=== PATIENT | male | born 1970 | race African-American/Black ===

== ENCOUNTER 2016-10-13 23:25 | Inpatient (IN) | payer MEDICARE, MEDICAID ==
[~2016-10-13] VITALS: Ht 177.8 cm; Wt 75.7 kg
[~2016-10-13 23:25] MED LIST: AMLO1CAP PO; CARV25TA PO; CLON0.2T PO; DIPH25ST4 PO; FOLI1TAB16 PO; MORP30TA PO
--- NOTE | 2016-10-13 23:35 | NUR ---
To bed 4 a 46 yo male bibra with c/o of generalized body pain at 05/07. Patient reported that he was discharged from [facility] for pneumonia. Patient is alert oriented x4. Breathing even and unlabored. Gowned patient. Placed on cardiac monitor technician. Pending ER md luna.
[2016-10-13] MEDS ORDERED: IV NS 0.9% 500 ML IV ONE (23:45)
[2016-10-13] MEDS ORDERED: IV SET PRIMARY 1 EA INFUS.SET MC ONE (23:45)
--- NOTE | 2016-10-13 23:51 | NUR ---
ekg taken by MAR Núñez.
--- NOTE | 2016-10-13 23:55 | NUR ---
Inserted a 20g estrada needle to portacath access on the right upper chest, blood return noted, flushed with ease.
[2016-10-14] VITALS (50 sets, daily range): BP systolic 84–160; BP diastolic 52–139
[2016-10-14] MEDS ORDERED: IV NS 0.9% 1,000 ML BAG IV ONE
--- NOTE | 2016-10-14 00:03 | NUR ---
lab at bedside to draw blood.
--- NOTE | 2016-10-14 00:05 | NUR ---
xr tech at bedside.
[2016-10-14 00:38] LABS: ALBUMIN 1.8 g/dL (3.4-5.0); BILIRUBIN,DIRECT 4.2 mg/dL (0.0-0.2); BILIRUBIN,TOTAL 5.4 mg/dL (0.2-1.0); CALCIUM, SERUM 8.7 mg/dL (8.5-10.1); CREATININE 6.8 mg/dL (0.6-1.3); POTASSIUM 5.2 mmol/L (3.5-5.1); TOTAL PROTEIN, SERUM 5.5 g/dL (6.4-8.2)
[2016-10-14 00:40] LABS: LACTIC ACID 1.4 mmol/L (0.4-2.0); TROPONIN I 0.086 ng/mL (0.00-0.056)
[2016-10-14 00:45] LABS: INR 1.24 (0.87-1.13); PROTHROMBIN TIME 13.4 SECS (9.5-12.7)
--- NOTE | 2016-10-14 00:49 | NUR ---
CALLED NURSING SUP. FOR TELE BED, INFORMED HER PT IS A DIALYSIS PT
[2016-10-14 00:52] LABS: MEAN CORPUSCULAR HEMOGLOBIN 29 PG (26.0-33.0); MEAN CORPUSCULAR HGB CONC 34 g/dl (31.0-36.0); MEAN CORPUSCULAR VOLUME 85 fL (80-96); PLATELET COUNT (AUTO) 107 /CMM (150-450); RDW COEFFICIENT OF VARIATION 16.3 (11.5-15.0); RED BLOOD CELL COUNT(AUTO) 2.38 MIL/uL (4.5-6.0)
[2016-10-14] MEDS ORDERED: VALS320T2 PO (00:55)
[2016-10-14] MEDS ORDERED: SEVE800T8 PO (00:55)
[2016-10-14] MEDS ORDERED: SUCR1TAB PO (00:55)
[2016-10-14] MEDS ORDERED: MINO2.5T PO (00:55)
[2016-10-14] MEDS ORDERED: OMEP20CA10 PO (00:55)
[2016-10-14] MEDS ORDERED: IV NS 0.9% 500 ML IV ONE (00:59)
[2016-10-14] MEDS ORDERED: VANCOMYCIN 1 GM VIAL ONE (00:59)
[2016-10-14] MEDS ORDERED: IV D5W 250 ML IV ONE (00:59)
[2016-10-14] MEDS ORDERED: PIPERACILLIN /TAZOBACTAM 3.375 G VIAL IV ONE (00:59)
[2016-10-14] MEDS ORDERED: IV D5W 50 ML IV ONE (00:59)
[2016-10-14] MEDS ORDERED: ASPIRIN 325 MG TABLET ONE (00:59)
[2016-10-14] MEDS ORDERED: IV SET PRIMARY PUMP SET 1 EA INFUS.SET MC ONE ×2 (01:00→09:41)
[2016-10-14] MEDS ORDERED: IV NS 0.9% 500 ML BAG IV ONE ×2 (01:00)
[2016-10-14] MEDS ORDERED: PIPERACILLIN /TAZOBACTAM 3.375 G in IV D5W 50 ML IV ONE (01:00)
[2016-10-14] MEDS ORDERED: VANCOMYCIN 1 GM in IV D5W 250 ML IV ONE (01:00)
[2016-10-14] MEDS ORDERED: ASPIRIN 325 MG TABLET PO ONE (01:00)
[2016-10-14 01:04] LABS: WHITE BLOOD COUNT (AUTO) 30.9 K/uL (4.3-11.0)
[2016-10-14 01:05] LABS: HEMATOCRIT 20 % (39-51)
--- NOTE | 2016-10-14 01:23 | NUR ---
Per Dr Tolliver, floor to call for admission orders.
--- NOTE | 2016-10-14 01:40 | NUR ---
Patient is asking for pain medicaiton, spoke with Dr Mcduffie, per Dr Mcduffie, no pain medication needed at this time.
--- NOTE | 2016-10-14 01:48 | NUR ---
Report given to Godfrey CRENSHAW in ICU for RM 260 for tuyet.
[2016-10-14 02:04] LABS: BAND % (MANUAL) 1 % (0.0-5.0); LYMPHOCYTES % (MANUAL) 3 % (16-48); MONOCYTES % (MANUAL) 3 % (0-11.0); NEUTROPHILS % (MANUAL) 92 (42-76)
[2016-10-14 02:05] LABS: EOSINOPHILS % (MANUAL) 1 % (0-4); PLATELET ESTIMATE DECREASED
--- NOTE | 2016-10-14 02:09 | NUR ---
transported to ICU rm 260 via als protocol, no incident noted. Ed RN at bedside took over care.
[2016-10-14] MEDS ORDERED: HYDROMORPHONE 1 MG/1 ML DISP.SYRIN ONE (03:29)
[2016-10-14] MEDS ORDERED: diphenhydrAMINE HCL ELIX 25 MG/10 ML UDC PO PRN (03:30)
[2016-10-14] MEDS ORDERED: ONDANSETRON HCL/PF 4 MG/2 ML VIAL IV PRN (03:30)
[2016-10-14] MEDS: HYDROMORPHONE 1 MG/1 ML DISP.SYRIN IV PRN ×3 (03:33→20:08)
[2016-10-14 04:38] LABS: MEAN CORPUSCULAR HEMOGLOBIN 29 PG (26.0-33.0); MEAN CORPUSCULAR HGB CONC 34 g/dl (31.0-36.0); MEAN CORPUSCULAR VOLUME 86 fL (80-96); PLATELET COUNT (AUTO) 88 /CMM (150-450); RDW COEFFICIENT OF VARIATION 16.5 (11.5-15.0); RED BLOOD CELL COUNT(AUTO) 2.23 MIL/uL (4.5-6.0); WHITE BLOOD COUNT (AUTO) 29.7 K/uL (4.3-11.0)
--- NOTE | 2016-10-14 04:41 | NUR ---
CUFF RUNNER PT WAS ADMITTED FROM ER WITH DIAGNOSIS PNA, EMPYEMA, SEPSIS. PT HAS HISTORY OF SICKLE CELL DISEASE, ESRD, HD, HEPATITIS C, LIVER CIRRHOSIS, ASCITIS. PT IS AWAKE, ALERT, ORIENTED X 4. MOVES ALL EXTREMITIES, LEGS ARE WEAK. BILATERAL LOW LEG EDEMA. LUNG SOUNDS DIMINISHED, SCATTERED RHONCHI. O2 2L VIA N/C. SCOPE-SR. AFEBRILE. PT IS ANURIC. RIGHT UPPER ARM AV SHUNT. LAST HD DONE 10.12.17 - 2500 ML FLUID REMOVED.PT HAS RIGHT UPPER ARM BLANCA-CATH. H.L. MEDICATED WITH DILAUDID 1 MG IVP. PT WAS GIVEN 1000 ML NS BOLUS IN ER. STARTED VANCO & ZOSYN IVPB'S.
[2016-10-14 04:54] LABS: HEMATOCRIT 19 % (39-51); HEMOGLOBIN 6.5 g/dL (13.5-17.5)
[2016-10-14 04:56] LABS: CALCIUM, SERUM 8.3 mg/dL (8.5-10.1); CREATININE 6.9 mg/dL (0.6-1.3); PHOSPHORUS 7.9 mg/dL (2.5-4.9); POTASSIUM 5.3 mmol/L (3.5-5.1)
[2016-10-14 06:14] LABS: BAND % (MANUAL) 2 % (0.0-5.0); LYMPHOCYTES % (MANUAL) 6 % (16-48); MONOCYTES % (MANUAL) 1 % (0-11.0); NEUTROPHILS % (MANUAL) 91 (42-76); PLATELET ESTIMATE DECREASED
--- NOTE | 2016-10-14 06:48 | NUR ---
PROFESSOR OF EXERCISE SCIENCE H/H DROPPED FROM 02/14 TO 6.5. Maryse FOSTER WAS CALLED 3 TIMES TO NOTIFY CRITICAL LAB RESULTS. NO CALL BACK. DIMPLING MACHINE OPERATOR ALLEN PRUITT WILL TRY TO REACH MD. NO S/S OF ANY BLEEDING. PT HAS SICKLE CELL DISEASE, WHICH SOURCE OF CHRONIC ANEMIA.
--- NOTE | 2016-10-14 07:35 | NUR ---
COAL SHOOTER: pt.is sleepy now, labored, O2sat 91-93% on r/a, arouses by name well, A/Ox3, put on 4L O2 n/c, no any c/o, no SOB, SBP over 100, SR, H/H 6.5, was paged over night
--- NOTE | 2016-10-14 07:45 | NUR ---
AND DRYING SUPERVISOR COOKING CASING: is in room, updated with pt.current status, VS, labs, H/H, said: T/S and hold one unit PRBC
--- NOTE | 2016-10-14 07:50 | NUR ---
HOUSE MOVER: charge nurse spoke with , no new orders/ABG for now, hold one PRBC unit
--- NOTE | 2016-10-14 07:51 | NUR ---
SCHOOL CHILDCARE ATTENDANT: : ok for ABG
--- NOTE | 2016-10-14 08:12 | NUR ---
SAP HANA DEVELOPER: ABG pH7.38 pCO2 39, pO2 112, bicarb 23
[2016-10-14] MEDS ORDERED: SEVELAMER CARBONATE 800 MG TABLET PO SCH (09:00)
[2016-10-14] MEDS: SUCRALFATE 1 G TABLET PO SCH ×3 (09:00→17:27)
[2016-10-14] MEDS ORDERED: VANCOMYCIN 500 MG in IV D5W 100 ML IV PRN (09:00)
[2016-10-14] MEDS: FOLIC ACID 1 MG TABLET PO SCH (09:00)
[2016-10-14] MEDS ORDERED: PIPERACILLIN /TAZOBACTAM 2.25 G in IV D5W 50 ML IV SCH (09:00)
--- NOTE | 2016-10-14 09:00 | NUR ---
METALS SALES REPRESENTATIVE: is in room, updated with pt.current condition, VS, c/o and pain level, ABG, meds, labs, pt.confirmed: he gave home meds information in ER, reevaluated meds/see new orders, HD for today, start renal diet after HD, Levaquin for IV, blood transfusion per , aware and confirmed: pt.is with multiple pain/itching occas. long time, ok with respiratory status, spoke with charge nurse, pharmacy was notified re new orders and HD
[2016-10-14] MEDS ORDERED: IV NS 0.9% 250 ML BAG IV ONE (09:30)
[2016-10-14] MEDS ORDERED: IPRATROPIUM NEB FS 0.5 MG/2.5 ML AMPUL.NEB NEB PRN (09:30)
[2016-10-14] MEDS ORDERED: ACETAMINOPHEN 650 MG/20.3 ML UDC PO PRN (09:30)
--- NOTE | 2016-10-14 09:30 | NUR ---
SOLAR ELECTRIC INSTALLER: pt.c/o multiple body pain, alisha.low back, legs, 8-04/07, A/Ox3, VSS now, O2 sat. over 94%, said:ok with respiratory status with pain meds long use history. is in room, notified re pt.condition, history, VS, O2sat., ABG, labs, meds, see new orders
[2016-10-14] MEDS ORDERED: BLOOD IV SET 1 EA INFUS.SET MC ONE (09:41)
[2016-10-14] MEDS ORDERED: SECONDARY IV SET 1 EA INFUS.SET MC ONE ×2 (09:41→15:25)
[2016-10-14] MEDS: CINACALCET HCL 30 MG TABLET PO SCH (10:05)
[2016-10-14] MEDS: SEVELAMER CARBONATE 800 MG TABLET PO SCH ×3 (10:05→17:27)
[2016-10-14] MEDS: HYDROXYUREA 500 MG CAPSULE PO SCH (10:06)
[2016-10-14] MEDS: CARVEDILOL 12.5 MG TABLET PO SCH ×2 (10:24→21:09)
[2016-10-14] MEDS ORDERED: CLONIDINE HCL 0.1 MG TABLET PO PRN (10:30)
[2016-10-14] MEDS ORDERED: LEVOFLOXACIN 500 MG /D5W 100ML 500 MG in PREMIX 1 EA IV ONE (11:00)
--- NOTE | 2016-10-14 11:30 | NUR ---
RPG DEVELOPER: BT orders verification: charge nurse spoke with : confirmed last order: transfuse one PRBC unit with HD today. Pt.got explanation for R.thoracentesis per orders, signed consent
[2016-10-14] MEDS ORDERED: ALBUTEROL FS 2.5 MG/3 ML VIAL.NEB NEB PRN (13:30)
--- NOTE | 2016-10-14 14:00 | NUR ---
PATIENT RELATIONS DIRECTOR: updated with pt.condition, VS, orders, meds, HD, labs, see new orders
[2016-10-14] MEDS ORDERED: EPOETIN ALFA (10,000 UNIT) 10,000 UNIT/ML VIAL SQ ONE (15:00)
--- NOTE | 2016-10-14 15:42 | NUR ---
CABLE INSTALLATION MANAGER: HD nurse updated with labs, Dr.Lee meng
[2016-10-14] MEDS ORDERED: IV NS 0.9% 250 ML IV ONE (15:52)
--- NOTE | 2016-10-14 16:20 | NUR ---
HD IN PROGRESS WITH ONE UNIT PACKED CELLS TRANSFUSED DURING RUN PER DIXIE COLÓN/REGINA
[2016-10-14] MEDS: PIPERACILLIN /TAZOBACTAM 2.25 G in IV D5W 50 ML IV SCH (17:27)
--- NOTE | 2016-10-14 17:35 | NUR ---
DELIVERY STOCK CLERK: one PRBC unit was given with HD, pt.is tolerated well
[2016-10-14] MEDS: IPRATROPIUM NEB FS 0.5 MG/2.5 ML AMPUL.NEB NEB SCH ×2 (19:30→23:42)
[2016-10-14] MEDS: ALBUTEROL FS 2.5 MG/3 ML VIAL.NEB NEB SCH ×2 (19:30→23:43)
--- NOTE | 2016-10-14 19:35 | NUR ---
RURAL SOCIOLOGIST RCD PT W/DX PNA; PT IS A/O x4; NSR ON MONITOR. O2 3L NC. SACRAL DECUB W/MEPILEX IN PLACE. WC CONS PENDING. JAX FISTULA NOTED. RCW PORTACATH. PT FOR THORACENTESIS TOMORROW CONTINUE TO MONITOR.
--- NOTE | 2016-10-14 19:35 | NUR ---
TUG CAPTAIN NON ADMIT STK MEDS FOR PT SAFETY.
--- NOTE | 2016-10-14 20:00 | NUR ---
POTATO CHIP MAKER PT REQUESTED PAIN MEDICATION FOR GENERALIZED PAIN 03/07; DILAUDID 1 MG IV GIVEN; MONITOR FOR EFFECT. ORAL CARE RENDERED AND PT REPOSITIONED. CONTINUE TO MONITOR.
--- NOTE | 2016-10-14 23:40 | NUR ---
CLINIC COORDINATOR PT NOTED WITH NOSE BLEED; APPLIED PRESSURE TO RIGHT NARE; CONTINUE TO MONITOR.
[2016-10-15] VITALS (23 sets, daily range): BP systolic 108–149; BP diastolic 69–89
[2016-10-15] MEDS: PIPERACILLIN /TAZOBACTAM 2.25 G in IV D5W 50 ML IV SCH ×3 (01:00→17:13)
[2016-10-15] MEDS: HYDROMORPHONE 1 MG/1 ML DISP.SYRIN IV PRN ×5 (01:03→21:02)
--- NOTE | 2016-10-15 01:03 | NUR ---
WRIST LINER PT REQUESTED DILAUDID FOR GENERALIZED PAIN WELL BENADRYL STATING HE IS ITCHY. PT MEDICATED REQUESTED. CONTINUE TO MONITOR.
[2016-10-15] MEDS: ZOLPIDEM TARTRATE 5 MG TABLET PO PRN ×2 (02:09→21:17)
--- NOTE | 2016-10-15 02:09 | NUR ---
CAROUSEL ATTENDANT PT REQUESTED MACYIEN FOR SLEEP; STATES HE IS FRUSTRATED HE IS NOT ABLE TO SLEEP. PT NOTED DOZING OFF DURING SHIFT. MEDICATED PER PT REQUEST.
[2016-10-15] MEDS: IPRATROPIUM NEB FS 0.5 MG/2.5 ML AMPUL.NEB NEB SCH ×6 (04:30→23:23)
[2016-10-15] MEDS: ALBUTEROL FS 2.5 MG/3 ML VIAL.NEB NEB SCH ×6 (04:30→23:23)
[2016-10-15 04:44] LABS: HEMATOCRIT 22 % (39-51); HEMOGLOBIN 7.4 g/dL (13.5-17.5); MEAN CORPUSCULAR HEMOGLOBIN 29 PG (26.0-33.0); MEAN CORPUSCULAR HGB CONC 34 g/dl (31.0-36.0); MEAN CORPUSCULAR VOLUME 87 fL (80-96); PLATELET COUNT (AUTO) 101 /CMM (150-450); RDW COEFFICIENT OF VARIATION 16.5 (11.5-15.0); WHITE BLOOD COUNT (AUTO) 26.5 K/uL (4.3-11.0)
[2016-10-15 04:54] LABS: ALBUMIN 1.8 g/dL (3.4-5.0); BILIRUBIN,TOTAL 4.6 mg/dL (0.2-1.0); CALCIUM, SERUM 6.5 mg/dL (8.5-10.1); CREATININE 5.8 mg/dL (0.6-1.3); MAGNESIUM 1.9 mg/dL (1.8-2.4); POTASSIUM 5.7 mmol/L (3.5-5.1); TOTAL PROTEIN, SERUM 5.8 g/dL (6.4-8.2)
--- NOTE | 2016-10-15 05:04 | NUR ---
SEISMOGRAPH HELPER PT DECLINED A BATH STATING HE HAD ONE DURING THE DAY AND THAT IT IS TOO COLD NOW FOR A BATH. CONTINUE TO MONITOR.
[2016-10-15 06:02] LABS: ANISOCYTOSIS 1+; BAND % (MANUAL) 1 % (0.0-5.0); BASOPHILS % (MANUAL) 0 % (0.0-2.0); EOSINOPHILS % (MANUAL) 2 % (0-4); LYMPHOCYTES % (MANUAL) 7 % (16-48); MONOCYTES % (MANUAL) 0 % (0-11.0); NEUTROPHILS % (MANUAL) 90 (42-76); PLATELET ESTIMATE DECREASED; TARGET CELLS 1+
--- NOTE | 2016-10-15 08:00 | NUR ---
TANK ASSEMBLER; ASSESSMENT RECEIVED PT AWAKE AND ORIENTED X3. PT C/O PAIN TO LOWER BACK AND SASHA LEGS. WILL REVIEW MEDICATION AND ADMINISTER ACCORDINGLY. PT IS ANURIC WITH HD ACCESS TO RIGHT UPPER ARM AV FISTULA. PORTACATH TO RIGHT UPPER CHEST. PT IS SCHEDULED FOR THORACENTESIS. WILL F/U WITH ULTRASOUND. ENCOURAGING PT TO MOVE IN BED AND CHANGE POSITIONS FREQUENTLY. PT DOES NOT WANT TO CHANGE POSITIONS. DISCUSSED REGARDING HIS SACRAL WOUND AND THAT IT WILL NOT HEAL IF HE REMAINS IN ONE POSITION. PT CONTINUES TO REFUSE AND REMAINS SUPINE. WILL CONTINUE TO ENCOURAGE
[2016-10-15] MEDS: SUCRALFATE 1 G TABLET PO SCH ×3 (08:12→17:13)
[2016-10-15] MEDS: CINACALCET HCL 30 MG TABLET PO SCH (08:12)
[2016-10-15] MEDS: SEVELAMER CARBONATE 800 MG TABLET PO SCH ×3 (08:12→17:13)
[2016-10-15] MEDS: HYDROXYUREA 500 MG CAPSULE PO SCH (08:13)
[2016-10-15] MEDS: FOLIC ACID 1 MG TABLET PO SCH (08:13)
[2016-10-15] MEDS: CARVEDILOL 12.5 MG TABLET PO SCH ×2 (08:13→21:01)
[2016-10-15] MEDS: AMLODIPINE BESYLATE 10 MG TABLET PO SCH (08:13)
[2016-10-15] MEDS ORDERED: BENAZEPRIL HCL 20 MG TABLET PO SCH (09:00)
--- NOTE | 2016-10-15 09:40 | NUR ---
WOUND CARE CONSULT: PT PRESENTS WITH STAGE II ULCER TO SACRAL AREA, PRESENT ON ADMISSION. SOME EDEMA NOTED TO LOWER EXTREMITIES. PT ON ISOFLEX BED. PT ABLE TO ASSIST WITH TURNING AND REPOSITIONING IN BED. ALL SKIN PROTECTION AND WOUND RECOMMENDATIONS DISCUSSED WITH NURSING STAFF. MD IN AGREEMENT WITH PLAN OF CARE. Addendum: 10/15/16 at 0942 by LUIS RICHARDS WNDNU Amended: Links added.
[2016-10-15] MEDS ORDERED: HYDROGEL DRESSING 90 GM TUBE TP PRN (10:00)
[2016-10-15] MEDS ORDERED: diphenhydrAMINE HCL 50 MG/ML VIAL IV PRN (12:30)
[2016-10-15] MEDS: HYDROGEL DRESSING 90 GM TUBE TP SCH (14:16)
--- NOTE | 2016-10-15 15:54 | NUR ---
INDUSTRIAL SAFETY ENGINEER; THORACENTESIS RECEIVED CALL FROM [employer] JILL TEE UNABLE TO DO THORACENTESIS SINCE PT WAS RECEIVING HD WHEN RADIOLOGIST WAS AVAILABLE. DR. FRANCISCO NOTIFIED THAT THORACENTESIS WILL BE DONE TOMORROW 10/16/16
--- NOTE | 2016-10-15 17:22 | NUR ---
saturations noted pt saturations dropping to 82%, while pt is sleeping. encouraged pt to place nasal canula at least while he sleeps. pt agreed nasal canula 2l. now saturations 99%. Addendum: 10/15/16 at 1726 by ESTER LARA RN Amended: Links added.
--- NOTE | 2016-10-15 18:14 | NUR ---
POWER MARKETER; HYGINE PT REFUSES PM CARE. PT DID AGREE FOR WOUND CARE.
--- NOTE | 2016-10-15 19:00 | NUR ---
RN INITIAL NOTES RECEIVED THE PATIENT AWAKE ON BED, A/O X4. ON 2L NASAL CANNULA, SATURATING 100%. CURRENTLY SR ON THE MONITOR, HR 90'S. PT IS ANURIC. RIGHT UPPER ARM FISTULA NOTED. RIGHT CHEST WALL PORT-A-CATH FLUSHED AND PATENT, NO S/S OF INFILTRATION/INFECTION, DRESSING CDI. BED LOW AND LOCKED, SIDERAILS UP, CALL LIGHT WITHIN REACH. WILL MONITOR
--- NOTE | 2016-10-15 19:20 | NUR ---
RN TATA CALLED CEFERINO TO GIVE REPORT TO FLOWER HANNA FOR THE PATIENT'S CONTINUITY OF CARE.
--- NOTE | 2016-10-15 20:41 | NUR ---
received pt from day shift, a/o x4, follows commands, SR, PACs, RA, sat well, lungs partially congested, some non pitting edema BLLE, tolerates renal diet, anuric, HD today, v/s stable, no pain, pt turns and repositions by himself.
[2016-10-16] VITALS (8 sets, daily range): BP systolic 113–134; BP diastolic 58–76
[2016-10-16] MEDS: PIPERACILLIN /TAZOBACTAM 2.25 G in IV D5W 50 ML IV SCH ×3 (00:42→17:17)
[2016-10-16] MEDS: HYDROMORPHONE 1 MG/1 ML DISP.SYRIN IV PRN ×6 (01:12→21:19)
[2016-10-16] MEDS ORDERED: IV NS 0.9% 250 ML IV ONE ×3 (03:06→22:52)
[2016-10-16] MEDS: ALBUTEROL FS 2.5 MG/3 ML VIAL.NEB NEB SCH ×6 (03:30→23:42)
[2016-10-16] MEDS: IPRATROPIUM NEB FS 0.5 MG/2.5 ML AMPUL.NEB NEB SCH ×6 (03:30→23:42)
--- NOTE | 2016-10-16 04:15 | NUR ---
pt is resting in the bed, v/s stable, pain meds given q4hrs, pt cleaned, changed and repositioned q2hrs.
--- NOTE | 2016-10-16 08:00 | NUR ---
RN CEFERINO; ASSESSMENT RECEIVED PT AWAKE AND ORIENTED X4. PT C/O OF PAIN 03/07 WILL REVIEW MEDICATIONS. PT IS ANURIC HD ACCESS TO RIGHT UPPER ARM POSITIVE FOR THRILL AND BRUIT. PORTACATH TO RIGHT UPPER CHEST. PT ON ROOM AIR. PT SCHEDULED FOR THORACENTESIS TODAY WILL F/U WITH RADIOLOGIST.
[2016-10-16 08:21] LABS: CALCIUM, SERUM 6.1 mg/dL (8.5-10.1); CREATININE 4.7 mg/dL (0.6-1.3); MAGNESIUM 1.7 mg/dL (1.8-2.4); PHOSPHORUS 4.6 mg/dL (2.5-4.9); POTASSIUM 4.2 mmol/L (3.5-5.1)
[2016-10-16] MEDS: CINACALCET HCL 30 MG TABLET PO SCH (08:37)
[2016-10-16] MEDS: SEVELAMER CARBONATE 800 MG TABLET PO SCH ×3 (08:38→17:16)
[2016-10-16] MEDS: CARVEDILOL 12.5 MG TABLET PO SCH ×2 (08:38→21:19)
[2016-10-16] MEDS: SUCRALFATE 1 G TABLET PO SCH ×3 (08:38→17:16)
[2016-10-16] MEDS: AMLODIPINE BESYLATE 10 MG TABLET PO SCH (08:38)
[2016-10-16] MEDS: FOLIC ACID 1 MG TABLET PO SCH (08:38)
[2016-10-16 08:45] LABS: BASOPHILS % (AUTO) 0.1 % (0.0-2.0); EOSINOPHILS # (AUTO) 0.1 /CMM (0.0-0.7); EOSINOPHILS % (AUTO) 0.7 % (0.0-6.0); LYMPHOCYTES # (AUTO) 1.5 /CMM (0.8-4.8); LYMPHOCYTES % (AUTO) 6.6 % (20.0-44.0); MEAN CORPUSCULAR HEMOGLOBIN 30 PG (26.0-33.0); MEAN CORPUSCULAR HGB CONC 34 g/dl (31.0-36.0); MEAN CORPUSCULAR VOLUME 86 fL (80-96); MONOCYTES # (AUTO) 1.3 /CMM (0.1-1.30); MONOCYTES % (AUTO) 5.8 % (2.0-12.0); NEUTROPHILS # (AUTO) 19.6 /CMM (1.8-8.9); NEUTROPHILS % (AUTO) 86.8 % (43.0-81.0); PLATELET COUNT (AUTO) 87 /CMM (150-450); RDW COEFFICIENT OF VARIATION 16.6 (11.5-15.0); RED BLOOD CELL COUNT(AUTO) 2.12 MIL/uL (4.5-6.0); WHITE BLOOD COUNT (AUTO) 22.6 K/uL (4.3-11.0)
[2016-10-16 09:06] LABS: HEMATOCRIT 18 % (39-51); HEMOGLOBIN 6.3 g/dL (13.5-17.5)
[2016-10-16] MEDS: HYDROGEL DRESSING 90 GM TUBE TP SCH (09:22)
[2016-10-16] MEDS: HYDROXYUREA 500 MG CAPSULE PO SCH (09:22)
--- NOTE | 2016-10-16 09:45 | NUR ---
RN CEFERINO; PRIMARY Abby SAMAYOA AT BEDSIDE UPDATE WAS GIVEN. DISCUSSED REGARDING PTS LOW H/H OF 6.3/18. NEW ORDERS GIVEN FOR HD AND TO TRANSFUSE 1UNIT OF PRBC WITH HD.
[2016-10-16] MEDS ORDERED: LEVOFLOXACIN 250 MG /D5W 50 ML 250 MG in PREMIX 1 EA IV SCH (10:00)
--- NOTE | 2016-10-16 10:00 | NUR ---
RN CEFERINO; THORACENTESIS JILL TEE DIRECTOR OF FINANCIAL PLANNING AT BEDSIDE FOR THORACENTESIS. ULTRASOUND DONE, NOT ENOUGH FLUID BUILD UUP FOR THORACENTESIS. WILL NOTIFY MD WHEN ROUNDING,.
[2016-10-16 10:28] LABS: LYMPHOCYTES % (MANUAL) 3 % (16-48); MONOCYTES % (MANUAL) 2 % (0-11.0); NEUTROPHILS % (MANUAL) 95 (42-76)
[2016-10-16 10:32] LABS: ANISOCYTOSIS 1+; HYPOCHROMASIA 1+; PLATELET ESTIMATE DECREASED
[2016-10-16] MEDS: diphenhydrAMINE HCL 50 MG/ML VIAL IV PRN ×3 (13:17→21:19)
[2016-10-16] MEDS ORDERED: PIPERACILLIN /TAZOBACTAM 2.25 G in IV D5W 50 ML IV SCH (14:00)
[2016-10-16] MEDS ORDERED: BLOOD IV SET 1 EA INFUS.SET MC ONE (14:21)
--- NOTE | 2016-10-16 14:40 | NUR ---
RN CEFERINO; TRANSFUSION HD STARTED BY SLIME. PRBC TRANSFUSED WITH HD. SEE HD PROGRESS NOTES FOR VITAL SIGNS.
--- NOTE | 2016-10-16 18:15 | NUR ---
CLINICAL LABORATORY AIDES TEACHER; HYGIENE. PT REFUSES PM CARE, LINEN CHANGE. DISCUSSED THAT IT HAS BEEN NOW 2 DAYS WITHOUT HYGIENE CARE. PT CONTINUES TO REFUSE.
--- NOTE | 2016-10-16 21:03 | NUR ---
SUMO WRESTLER. INITIAL ASSESSMENT. RECEIVED THE PT REST ON THE BED. AWAKE, ALERT, FOLLOW COMMANDS. TELEPHONE SERVICE ADVISER SHOWING NSR, IV RT CHEST BLANCA CATH . RT UPPER AR AV FISTULA, OXYGEN 2L VIA NASAL CANNULA. SAT 98%. NO ACUTE DISTRESS NOTED. HOB ELEVATED. TURN AND REPOSITION PT INDEPENDENT. WILL CONTINUE TO MONITOR VITALS.
[2016-10-17] VITALS (7 sets, daily range): BP systolic 110–140; BP diastolic 55–74
[2016-10-17] MEDS: PIPERACILLIN /TAZOBACTAM 2.25 G in IV D5W 50 ML IV SCH ×3 (00:26→16:00)
[2016-10-17] MEDS: HYDROMORPHONE 1 MG/1 ML DISP.SYRIN IV PRN ×6 (00:35→19:58)
[2016-10-17] MEDS: diphenhydrAMINE HCL 50 MG/ML VIAL IV PRN ×5 (00:35→19:58)
[2016-10-17] MEDS: ALBUTEROL FS 2.5 MG/3 ML VIAL.NEB NEB SCH ×6 (03:29→23:31)
[2016-10-17] MEDS: IPRATROPIUM NEB FS 0.5 MG/2.5 ML AMPUL.NEB NEB SCH ×6 (03:29→23:30)
--- NOTE | 2016-10-17 03:46 | NUR ---
REAL ESTATE ANALYST. AM CARE. ORAL CARE, BED BATH GIVEN. LINEN CHANGED. REMAINING SAME OXYGEN TOLERATED WELL. SAT 98%. NO ACUTE DISTRESS NOTED/ QA CONSULTANT SHOWING NSR. IV RT CHEST WALL. BLANCA CATH, HOB ELEVATED. TURN AND REPOSITION Q2H. WILL CONTINUE TO MONITOR VITALS .
[2016-10-17 06:59] LABS: BASOPHILS % (AUTO) 0.1 % (0.0-2.0); EOSINOPHILS % (AUTO) 0.2 % (0.0-6.0); LYMPHOCYTES # (AUTO) 2.5 /CMM (0.8-4.8); LYMPHOCYTES % (AUTO) 11.9 % (20.0-44.0); MEAN CORPUSCULAR HEMOGLOBIN 29 PG (26.0-33.0); MEAN CORPUSCULAR HGB CONC 33 g/dl (31.0-36.0); MEAN CORPUSCULAR VOLUME 88 fL (80-96); MONOCYTES # (AUTO) 1.7 /CMM (0.1-1.30); MONOCYTES % (AUTO) 8.1 % (2.0-12.0); NEUTROPHILS # (AUTO) 16.5 /CMM (1.8-8.9); NEUTROPHILS % (AUTO) 79.7 % (43.0-81.0); PLATELET COUNT (AUTO) 70 /CMM (150-450); RDW COEFFICIENT OF VARIATION 16.6 (11.5-15.0); RED BLOOD CELL COUNT(AUTO) 2.29 MIL/uL (4.5-6.0); WHITE BLOOD COUNT (AUTO) 20.7 K/uL (4.3-11.0)
[2016-10-17 07:07] LABS: HEMATOCRIT 20 % (39-51); HEMOGLOBIN 6.7 g/dL (13.5-17.5)
--- NOTE | 2016-10-17 07:56 | NUR ---
Tele/RN - Initial Notes Received pt in bed awake, on breathing Tx. Aox4. No acute distress. Respirations are even and unlabored. On tele SR 80. No s/s of pain or discomfort. Portacath noted on right chest. JAX Fistula noted with positive bruit/thrill. Safety and comfort measures in place. Will continue to monitor pt closely.
[2016-10-17] MEDS: CINACALCET HCL 30 MG TABLET PO SCH (08:04)
[2016-10-17] MEDS: SUCRALFATE 1 G TABLET PO SCH ×3 (08:04→16:00)
[2016-10-17] MEDS: FOLIC ACID 1 MG TABLET PO SCH (08:04)
[2016-10-17] MEDS: CARVEDILOL 12.5 MG TABLET PO SCH ×2 (08:04→21:40)
[2016-10-17] MEDS: SEVELAMER CARBONATE 800 MG TABLET PO SCH ×3 (08:04→16:00)
[2016-10-17] MEDS: HYDROXYUREA 500 MG CAPSULE PO SCH (08:04)
[2016-10-17] MEDS: AMLODIPINE BESYLATE 10 MG TABLET PO SCH (08:04)
[2016-10-17] MEDS: HYDROGEL DRESSING 90 GM TUBE TP SCH (08:05)
[2016-10-17 09:18] LABS: HYPOCHROMASIA 1+; LYMPHOCYTES % (MANUAL) 8 % (16-48); MONOCYTES % (MANUAL) 6 % (0-11.0); NEUTROPHILS % (MANUAL) 86 (42-76); PLATELET ESTIMATE DECREASED
[2016-10-17 09:19] LABS: ANISOCYTOSIS 1+
--- NOTE | 2016-10-17 09:44 | NUR ---
CEFERINO/RN - Notes Wound treatment carried out as ordered. Pt complains of sacrum wound pain on pain scale 9 out of 10. Administered Dilaudid 1mg IVP as ordered for PRN pain. Comfort measures in place. Will reassess pain accordingly. Pt taken to CT.
--- NOTE | 2016-10-17 10:45 | NUR ---
Tele/RN - Notes Dr Singh made aware of pt's Hgb level 6.7, with no new orders noted. Per MD, "He has sickle cell anemia, it's always going to be low. As long as it's between 6 to 7 it's fine. That's his baseline."
--- NOTE | 2016-10-17 12:01 | NUR ---
Tele/RN - Notes Pt complains of sacrum wound pain on pain scale 9 out of 10. Administered Dilaudid 2mg IVP as ordered for PRN pain. Comfort measures in place. Will reassess pain accordingly.
--- NOTE | 2016-10-17 16:00 | NUR ---
Tele/RN - Notes Pt complains of generalized and sacrum wound pain on pain scale 9 out of 10. Administered Dilaudid 1mg IVP as ordered for PRN pain. Comfort measures in place. Pt also requests for Benadryl to be given. Administered Benadryl 25mg IVP as ordered. Will reassess pain accordingly.
--- NOTE | 2016-10-17 20:00 | NUR ---
MOTORCYCLE ASSEMBLER NOTES RECEIVED PTS ON BED AWAKE ALERT AND VERBALLY RESPONSIVE ,ON 2 LITERS OF O2 VIA NC SATING 100% , V/S STABLE AFEBRILE , NO SOB NO DISTRESS NOTED , DUE MEDS GIVEN ORDERED ALL NEEDS ATTENDED TOO CALL LIGHT WITHIN REACH , KEEP PTS CLEAN DRY AND COMFORTABLE , ON TELE SR PAC ON THE MONITOR, WITH CHEST PORTACATH INTACT AND PATENT , JAX FISTULA INTACT AND PATENT WITH +BRUIT AND THRILL NOTED , ALL DUE PAIN MGT GIVEN ORDERED C/O BACK PAIN DILAUDID 2MG IV AND BENADRYL 25 MG GIVEN Q4HRS PRN ORDERED, WILL CONTINUE TO MONITOR PTS.
[2016-10-18] VITALS: BP 118/65
--- NOTE | 2016-10-18 | NUR ---
television receiver analyzer notes pts noted with tele monitor sr with episode of bbb, pts v/s stable afebrile, no complain of distress no sob , pts is awake complain of pain at his back dilaudid 2mg given iv and Benadryl 25mg iv give as ordered. with good effect, will continue to monitor pts.
[2016-10-18] MEDS: diphenhydrAMINE HCL 50 MG/ML VIAL IV PRN ×6 (00:20→21:07)
[2016-10-18] MEDS: HYDROMORPHONE 1 MG/1 ML DISP.SYRIN IV PRN ×6 (00:24→21:08)
[2016-10-18] MEDS: PIPERACILLIN /TAZOBACTAM 2.25 G in IV D5W 50 ML IV SCH ×3 (01:22→16:56)
[2016-10-18] MEDS: ALBUTEROL FS 2.5 MG/3 ML VIAL.NEB NEB SCH ×6 (03:02→23:38)
[2016-10-18] MEDS: IPRATROPIUM NEB FS 0.5 MG/2.5 ML AMPUL.NEB NEB SCH ×6 (03:02→23:37)
[2016-10-18 04:00] VITALS: BP 106/60
--- NOTE | 2016-10-18 06:47 | NUR ---
COTTAGE ATTENDANT NOTES PTS ON BED AWAKE AND RESPONSIVE , NO SIGNIFICANT CHANGE NOTED , WILL ENDORSE TO RN DAY SHIFT FOR CONTINUITY ON CARE.
--- NOTE | 2016-10-18 07:30 | NUR ---
RN INITIAL NOTES PT IN BED, A/O X4, HOB ELEVATED 35 DEGREES, ON NC 2L, TOLERATING WELL, NO SOB, DENIES CHEST PAIN. ON TELE MONITOR WITH SR WITH ELEVATED T WAVE, HR 88. PT IS ANURIC. PT HAS SACRAL STAGE 2 WOUND, DRESSING CDI, ALL WOUND ORDERS CARRIED OUT. PT HAS JAX AV FISTULA, AND RIGHT CHEST PERMA CATH, CDI, SALINE FLUSHED, NO SIGNS OF INFECTION/INFILTRATION. CALL LIGHT WITHIN EASY REACH, SAFETY MEASURES MAINTAINED, WILL CONTINUE TO MONITOR AND FOLLOW MD ORDER. PT IN OVERALL STABLE CONDITION.
[2016-10-18 07:34] LABS: MEAN CORPUSCULAR HEMOGLOBIN 29 PG (26.0-33.0); MEAN CORPUSCULAR HGB CONC 34 g/dl (31.0-36.0); MEAN CORPUSCULAR VOLUME 88 fL (80-96); RDW COEFFICIENT OF VARIATION 16.1 (11.5-15.0); RED BLOOD CELL COUNT(AUTO) 2.23 MIL/uL (4.5-6.0); WHITE BLOOD COUNT (AUTO) 20.3 K/uL (4.3-11.0)
[2016-10-18 07:51] LABS: HEMATOCRIT 20 % (39-51); HEMOGLOBIN 6.6 g/dL (13.5-17.5); PLATELET COUNT (AUTO) 44 /CMM (150-450)
[2016-10-18 08:00] VITALS: BP 103/67
[2016-10-18] MEDS: CINACALCET HCL 30 MG TABLET PO SCH (08:21)
[2016-10-18] MEDS: CARVEDILOL 12.5 MG TABLET PO SCH ×2 (08:22→21:00)
[2016-10-18] MEDS: HYDROXYUREA 500 MG CAPSULE PO SCH (08:22)
[2016-10-18] MEDS: SEVELAMER CARBONATE 800 MG TABLET PO SCH ×3 (08:22→16:55)
[2016-10-18] MEDS: SUCRALFATE 1 G TABLET PO SCH ×3 (08:22→16:54)
[2016-10-18] MEDS: AMLODIPINE BESYLATE 10 MG TABLET PO SCH (08:23)
[2016-10-18] MEDS: FOLIC ACID 1 MG TABLET PO SCH (08:23)
[2016-10-18] MEDS: HYDROGEL DRESSING 90 GM TUBE TP SCH (08:24)
[2016-10-18] MEDS ORDERED: SECONDARY IV SET 1 EA INFUS.SET MC ONE (08:33)
[2016-10-18 09:06] LABS: ANISOCYTOSIS 1+; EOSINOPHILS % (MANUAL) 1 % (0-4); HYPOCHROMASIA 1+; LYMPHOCYTES % (MANUAL) 18 % (16-48); MONOCYTES % (MANUAL) 6 % (0-11.0); NEUTROPHILS % (MANUAL) 75 (42-76); PLATELET ESTIMATE DECREASED
[2016-10-18 12:00] VITALS: BP 120/61
[2016-10-18 14:38] LABS: PROTHROMBIN TIME 12.9 SECS (9.5-12.7)
[2016-10-18 14:39] LABS: INR 1.19 (0.87-1.13)
[2016-10-18 14:50] LABS: D-DIMER 11.9 mg/L(FEU (0.17-0.50)
[2016-10-18 16:00] VITALS: BP 119/58
--- NOTE | 2016-10-18 19:12 | NUR ---
RN CLOSING NOTES TOLERATING NC 2L WELL, IV CDI NO S/SX OF INFECTION/INFILTRATION, MD ORDERS CARRIED OUT, CALL LIGHTS WITHIN REACH, SAFETY MEASURES MAINTAINED, REPORT GIVEN TO NIGHT NURSE FOR CM.
[2016-10-18 20:00] VITALS: BP 114/56
--- NOTE | 2016-10-18 20:00 | NUR ---
CIRCULATOR; RECEIVED PT IN BED, A/O X4, GETTING HEMODIALYSIS, HOB ELEVATED 35 DEGREES, ON NC 2L, TOLERATING WELL, NO SOB, DENIES CHEST PAIN. ON TELE MONITOR WITH SR WITH ELEVATED T WAVE, HR WNL. PT IS ANURIC. PT HAS SACRAL STAGE 2 WOUND, DRESSING CDI, PT HAS JAX AV FISTULA, AND RIGHT CHEST BLANCA CATH, CDI, SALINE FLUSHED, NO SIGNS OF INFECTION/INFILTRATION. CALL LIGHT WITHIN EASY REACH, SAFETY MEASURES MAINTAINED, ONGOING MONITORING.
[2016-10-19] VITALS (9 sets, daily range): BP systolic 108–134; BP diastolic 32–94
[2016-10-19] MEDS: PIPERACILLIN /TAZOBACTAM 2.25 G in IV D5W 50 ML IV SCH ×2 (02:03→08:08)
[2016-10-19] MEDS: HYDROMORPHONE 1 MG/1 ML DISP.SYRIN IV PRN ×5 (02:44→19:41)
[2016-10-19] MEDS: diphenhydrAMINE HCL 50 MG/ML VIAL IV PRN ×5 (02:44→19:42)
[2016-10-19] MEDS: ALBUTEROL FS 2.5 MG/3 ML VIAL.NEB NEB SCH ×7 (03:56→23:30)
[2016-10-19] MEDS: IPRATROPIUM NEB FS 0.5 MG/2.5 ML AMPUL.NEB NEB SCH ×7 (04:05→23:30)
[2016-10-19] MEDS ORDERED: IV NS 0.9% 250 ML IV ONE ×2 (05:46→18:54)
--- NOTE | 2016-10-19 06:21 | NUR ---
JEWEL BEARING POLISHER; PT BEING STABLE THE WHOLE SHIFT, NO DISTRESS, SLEEPING WELL. CONTINUE PAIN MANAGEMENT WITH DILAUDID IV Q4H, PAIN DUE TO SICKLE CELL ANEMIA. . WILL ENDORSE CARE TO NEXT SHIFT.
--- NOTE | 2016-10-19 07:25 | NUR ---
RN INITIAL NOTES: Rec'd pt awake on bed, A&O x3, not in any distress. Pt on O2 at 2lpm/NC, saturating at 99%. On telemonitor, SR w/ PAC, HR 99. Pt has R CW port-a-cath, TKO, patent, C/D/I, no signs of infection/ infiltration noted. Has JAX fistula, C/D/I. Comfort measures provided. CL placed w/in reached. Bed kept low & in locked position. Will continue to monitor.
[2016-10-19 07:27] LABS: MEAN CORPUSCULAR HEMOGLOBIN 30 PG (26.0-33.0); MEAN CORPUSCULAR HGB CONC 34 g/dl (31.0-36.0); MEAN CORPUSCULAR VOLUME 87 fL (80-96); RDW COEFFICIENT OF VARIATION 16.1 (11.5-15.0); RED BLOOD CELL COUNT(AUTO) 2.05 MIL/uL (4.5-6.0); WHITE BLOOD COUNT (AUTO) 18.2 K/uL (4.3-11.0)
[2016-10-19 07:35] LABS: HEMATOCRIT 18 % (39-51)
[2016-10-19 07:36] LABS: PLATELET COUNT (AUTO) 30 /CMM (150-450)
--- NOTE | 2016-10-19 07:59 | NUR ---
RN NOTES TEXTED DR. SIMONS REGARDING H/H AND PLT, AWAITING ORDERS AT THIS TIME
--- NOTE | 2016-10-19 08:00 | NUR ---
RN NOTES NOTIFIED JANET REGARDING H/H 6.0/18, PER RENAL NEED 2 UNITS OF PRBC WILL BE TRANSFUSED W/HD, INFORMED AMID REGARDING HD, AMID NOTIFIED FABIANA BALL RN, AWARE
[2016-10-19] MEDS: SUCRALFATE 1 G TABLET PO SCH ×3 (08:09→17:18)
[2016-10-19] MEDS: SEVELAMER CARBONATE 800 MG TABLET PO SCH ×3 (08:09→17:18)
[2016-10-19] MEDS: CINACALCET HCL 30 MG TABLET PO SCH (08:09)
[2016-10-19] MEDS: HYDROXYUREA 500 MG CAPSULE PO SCH (08:11)
[2016-10-19] MEDS: AMLODIPINE BESYLATE 10 MG TABLET PO SCH (08:11)
[2016-10-19] MEDS: FOLIC ACID 1 MG TABLET PO SCH (08:11)
[2016-10-19] MEDS: CARVEDILOL 12.5 MG TABLET PO SCH ×2 (08:12→20:19)
[2016-10-19] MEDS: Z GUARD REMEDY 2 OZ OINT TP PRN (08:13)
[2016-10-19] MEDS: HYDROGEL DRESSING 90 GM TUBE TP SCH (08:13)
--- NOTE | 2016-10-19 08:33 | NUR ---
RN NOTES DR. SIMONS ORDERED 2 UNITS W/HD TODAY
--- NOTE | 2016-10-19 09:00 | NUR ---
RN NOTES: Pt seen & examined by Dr. Stewart w/ orders made & carried out.
[2016-10-19 09:25] LABS: ANISOCYTOSIS 1+; HYPOCHROMASIA 2+; LYMPHOCYTES % (MANUAL) 9 % (16-48); MONOCYTES % (MANUAL) 8 % (0-11.0); NEUTROPHILS % (MANUAL) 83 (42-76); PLATELET ESTIMATE DECREASED
[2016-10-19 09:26] LABS: TARGET CELLS 1+
--- NOTE | 2016-10-19 11:00 | NUR ---
RN NOTES: Pt seen & examined by Dr. Epps w/ orders made & carried out.
--- NOTE | 2016-10-19 13:25 | NUR ---
RN NOTES: Rec'd call from Dr. Epps to DC IV Zosyn. Start CEFTAZIDIME 1 gm IV OD.
[2016-10-19] MEDS ORDERED: CEFTAZIDIME 1 G VIAL IV SCH (13:30)
[2016-10-19] MEDS ORDERED: SECONDARY IV SET 1 EA INFUS.SET MC ONE (14:44)
[2016-10-19] MEDS: CEFTAZIDIME 1 G in IV D5W 50 ML IV SCH (14:50)
[2016-10-19] MEDS ORDERED: CEFTAZIDIME 1 G in IV D5W 50 ML IV SCH (15:00)
--- NOTE | 2016-10-19 16:51 | NUR ---
RN NOTES FOLLOWED UP WITH HD RNFABIANA, REGARDING CRITICAL LABS RESULTS AND THE NEED FOR BLOOD TRANSFUSION WITH HD, PER FABIANA WILL BE HERE IN A FEW HOURS, CHARGE NURSE AWARE.
--- NOTE | 2016-10-19 18:39 | NUR ---
RN CLOSING NOTES: No acute changes noted w/in shift. Pt A&Ox3, not in any distress, no LOC. On O2 at 2lpm/NC, no SOB, saturating at 96%. Noted w/ nose bleeding, MD aware, ordered to put nasal packing to stop bleeding. On telemonitor, SR w/ PAC, HR 99. Pt has R CW port-a-cath, TKO, patent, C/D/I, no signs of infection/ infiltration noted. Pt has JAX fistula, intact. Wound care done. Pt sched for HD & BT of 2 PRBC, HD RN aware. Needs attended. Provided comfort & safety measures. CL placed w/in reached. Bed kept low & in locked pos. Will endorse to PM RN for CM.
[2016-10-19] MEDS ORDERED: BLOOD IV SET 1 EA INFUS.SET MC ONE (18:54)
--- NOTE | 2016-10-19 19:08 | NUR ---
RN:MS: HD NURSE HERE TO DIALYZE PT. 2UNITS OF PBRC GIVEN TO HD NURSE TO TX. PT COMPLAINING OF PAIN WITH ADMIN ACCORDING TO MD ORDERS. VITAL SIGNS PRETX STABLE. LEFT NARE OOZING BLOODY AND IS PACKED WITH KLEENEX. WILL CONTINUE TO MONITOR CLOSELY.
--- NOTE | 2016-10-19 19:36 | NUR ---
PATIENT REFUSED TX, NO RESP DISTRESS NOTED, RN NOTIFIED
[2016-10-19] MEDS: ZOLPIDEM TARTRATE 5 MG TABLET PO PRN (21:50)
--- NOTE | 2016-10-19 21:52 | NUR ---
RN;MS: PT REQUESTING AMBIEN, MED GIVEN PER MD ORDERS. HD COMPLETE 1L OUT. PT RECEIVED 2UNITS PRBC WITH OUT RX. WILL CONTINUE TO MONITOR CLOSELY.
--- NOTE | 2016-10-19 23:37 | NUR ---
PT REFUSED TX, NO RESP DISTRESS NOTED, RN NOTIFIED
[2016-10-20] VITALS (7 sets, daily range): BP systolic 121–140; BP diastolic 62–82
[2016-10-20] MEDS: diphenhydrAMINE HCL 50 MG/ML VIAL IV PRN ×6 (00:36→22:16)
[2016-10-20] MEDS: HYDROMORPHONE 1 MG/1 ML DISP.SYRIN IV PRN ×6 (00:36→22:16)
[2016-10-20] MEDS: ALBUTEROL FS 2.5 MG/3 ML VIAL.NEB NEB SCH ×6 (03:30→23:30)
[2016-10-20] MEDS: IPRATROPIUM NEB FS 0.5 MG/2.5 ML AMPUL.NEB NEB SCH ×6 (03:30→23:30)
--- NOTE | 2016-10-20 03:31 | NUR ---
PT REFUSED TX, NO RESP DISTRESS NOTED, RN NOTIFIED
[2016-10-20] MEDS ORDERED: IV NS 0.9% 250 ML IV ONE (04:27)
--- NOTE | 2016-10-20 04:51 | NUR ---
RN:MS: PT REFUSING AM CARE OR ANY BREATHING TX THROUGHOUT SHIFT. PT ONLY REQUESTS PAIN MEDS AND BENADRYL. PT TEACHING PROVIDED BUT PT DOES NOT WANT TO HAVE ANY BREATHING TX OR AM CARE.
[2016-10-20 07:15] LABS: HEMATOCRIT 22 % (39-51); HEMOGLOBIN 7.5 g/dL (13.5-17.5); MEAN CORPUSCULAR HEMOGLOBIN 30 PG (26.0-33.0); MEAN CORPUSCULAR HGB CONC 34 g/dl (31.0-36.0); MEAN CORPUSCULAR VOLUME 86 fL (80-96); RDW COEFFICIENT OF VARIATION 16.2 (11.5-15.0); RED BLOOD CELL COUNT(AUTO) 2.55 MIL/uL (4.5-6.0); WHITE BLOOD COUNT (AUTO) 16.5 K/uL (4.3-11.0)
--- NOTE | 2016-10-20 07:30 | NUR ---
RN INITIAL NOTES PT IS IN BED, HOB ELEVATED AT 35 DEGREES, PT A/O X4, ON NASAL CANNULA 2L TOLERATING WELL, NO SOB. IV SITE PATENT NO SIGN AND SYMPTOMS OF INFECTION/INFILTRATION. CALL LIGHTS WITHIN REACH, SAFETY MEASURES MAINTAINED, WILL CONTINUE TO MONITOR AND FOLLOW MD ORDERS.
[2016-10-20 07:41] LABS: PLATELET COUNT (AUTO) 21 /CMM (150-450)
[2016-10-20 08:25] LABS: ALBUMIN 1.5 g/dL (3.4-5.0); BILIRUBIN,TOTAL 3.6 mg/dL (0.2-1.0); CALCIUM, SERUM 6.1 mg/dL (8.5-10.1); CREATININE 5.4 mg/dL (0.6-1.3); MAGNESIUM 1.9 mg/dL (1.8-2.4); PHOSPHORUS 3.6 mg/dL (2.5-4.9); POTASSIUM 4.4 mmol/L (3.5-5.1); TOTAL PROTEIN, SERUM 6.2 g/dL (6.4-8.2)
[2016-10-20 08:48] LABS: ANISOCYTOSIS 1+; BASOPHILS % (MANUAL) 0 % (0.0-2.0); EOSINOPHILS % (MANUAL) 2 % (0-4); LYMPHOCYTES % (MANUAL) 12 % (16-48); MONOCYTES % (MANUAL) 5 % (0-11.0); NEUTROPHILS % (MANUAL) 81 (42-76); PLATELET ESTIMATE DECREASED
[2016-10-20 08:49] LABS: TARGET CELLS 2+
[2016-10-20] MEDS: SUCRALFATE 1 G TABLET PO SCH ×3 (09:14→16:10)
[2016-10-20] MEDS: AMLODIPINE BESYLATE 10 MG TABLET PO SCH (09:14)
[2016-10-20] MEDS: HYDROXYUREA 500 MG CAPSULE PO SCH (09:14)
[2016-10-20] MEDS: CINACALCET HCL 30 MG TABLET PO SCH (09:14)
[2016-10-20] MEDS: SEVELAMER CARBONATE 800 MG TABLET PO SCH ×3 (09:15→16:10)
[2016-10-20] MEDS: FOLIC ACID 1 MG TABLET PO SCH (09:16)
[2016-10-20] MEDS: CARVEDILOL 12.5 MG TABLET PO SCH ×2 (09:16→21:04)
[2016-10-20] MEDS: HYDROGEL DRESSING 90 GM TUBE TP SCH (09:17)
--- NOTE | 2016-10-20 11:47 | NUR ---
RN NOTES PT'S IS HAVING OF EPISODES OF NOSE BLEED POSSIBLY DUE TO NASAL CANNULA, HAS HUMIDIFIER BUT NOSE STILL BLEEDING. WILL PACK WITH GAUZE AND LUBRICANT AND ASSESS. WILL NOTIFY MD IF PT S NOSE BLEED PERSIST.
[2016-10-20] MEDS ORDERED: PLATELET IV SET 1 EA INFUS.SET MC ONE (12:47)
[2016-10-20] MEDS ORDERED: ACETAMINOPHEN 325 MG TABLET PO ONE (15:00)
[2016-10-20] MEDS ORDERED: diphenhydrAMINE HCL 25 MG CAPSULE PO ONE (15:00)
[2016-10-20] MEDS: CEFTAZIDIME 1 G in IV D5W 50 ML IV SCH (15:54)
--- NOTE | 2016-10-20 16:27 | NUR ---
RN NOTES PT SATURATION RANGES FORM 89-93% IN ROOM AIR, PT WOULD LIKE TO REFRAIN FROM USING NASAL CANNULA, EXPLAINED THE RISK AND BENEFITS OF OXYGEN USE, BUT PT STILL DECIDED TO BE IN ROOM AIR, WILL CONTINUE TO MONITOR.
--- NOTE | 2016-10-20 19:22 | NUR ---
RN CLOSING NOTES ENDORSED TO THE NIGHT NURSE, PT IS IN STABLE CONDITION, IV SITE CDI, NO SIGNS AND SYMPTOMS OF INFECTION/INFILTRATION, ALL MEDS GIVEN AND PT TOLERATED IT WELL, ALL MD ORDERS CARRIED, SAFETY MEASURES MAINTAINED. CALL LIGHTS WITHIN REACH.
[2016-10-21] MEDS: HYDROMORPHONE 1 MG/1 ML DISP.SYRIN IV PRN ×5 (02:56→20:37)
[2016-10-21] MEDS: diphenhydrAMINE HCL 50 MG/ML VIAL IV PRN ×5 (02:57→20:37)
[2016-10-21] MEDS: ALBUTEROL FS 2.5 MG/3 ML VIAL.NEB NEB SCH ×6 (03:30→22:47)
[2016-10-21] MEDS: IPRATROPIUM NEB FS 0.5 MG/2.5 ML AMPUL.NEB NEB SCH ×6 (03:30→22:47)
[2016-10-21 04:00] VITALS: BP 116/71
--- NOTE | 2016-10-21 04:48 | NUR ---
RN:MS: PT CONTINUES TO REFUSE ANY AM CARE. ATTEMPTED TO ENCOURAGE PT THAT AM CARE AND WOUND CARE IS IMPORTANT BUT PT STILL REFUSES.
[2016-10-21 07:03] LABS: HEMATOCRIT 21 % (39-51); HEMOGLOBIN 7.3 g/dL (13.5-17.5); MEAN CORPUSCULAR HEMOGLOBIN 30 PG (26.0-33.0); MEAN CORPUSCULAR HGB CONC 34 g/dl (31.0-36.0); MEAN CORPUSCULAR VOLUME 86 fL (80-96); RDW COEFFICIENT OF VARIATION 16.6 (11.5-15.0); RED BLOOD CELL COUNT(AUTO) 2.45 MIL/uL (4.5-6.0); WHITE BLOOD COUNT (AUTO) 11.8 K/uL (4.3-11.0)
[2016-10-21 08:00] VITALS: BP_SYST 128; BP_SYST 129; BP_DIAS 73; BP_DIAS 74
--- NOTE | 2016-10-21 08:00 | NUR ---
MS RN NOTE PATIENT IN BED, ALL NEEDS ATTENDED, WITH RT CW BLANCA CATH ION PLACE WITH TKO RT UPPER ARM AV SHUNT WITH BRUIT SOUND , BED IN LOWEST AND LOCKED POSITION , CALL LIGHT WITHIN REACH , WILL CONT TO MONITOR CLOSELY PLAN OF CARE DISCUSSED WITH PATIENT,
[2016-10-21 08:02] LABS: PLATELET COUNT (AUTO) 31 /CMM (150-450)
--- NOTE | 2016-10-21 08:50 | NUR ---
MS RN NOTE C]O GENERAL PAIN IN BODY DILAUDID AND BENADRYL IV GIVEN ORDERED , WILL CONT TO MONITOR CLOSELY
[2016-10-21] MEDS: CINACALCET HCL 30 MG TABLET PO SCH (09:13)
[2016-10-21] MEDS: FOLIC ACID 1 MG TABLET PO SCH (09:14)
[2016-10-21] MEDS: SUCRALFATE 1 G TABLET PO SCH ×3 (09:14→16:12)
[2016-10-21] MEDS: HYDROXYUREA 500 MG CAPSULE PO SCH (09:14)
[2016-10-21] MEDS: SEVELAMER CARBONATE 800 MG TABLET PO SCH ×3 (09:14→16:12)
[2016-10-21] MEDS: AMLODIPINE BESYLATE 10 MG TABLET PO SCH (09:14)
[2016-10-21] MEDS: HYDROGEL DRESSING 90 GM TUBE TP SCH (09:15)
[2016-10-21] MEDS: CARVEDILOL 12.5 MG TABLET PO SCH ×2 (09:15→21:25)
[2016-10-21 10:25] LABS: ANISOCYTOSIS 1+; EOSINOPHILS % (MANUAL) 2 % (0-4); LYMPHOCYTES % (MANUAL) 21 % (16-48); MONOCYTES % (MANUAL) 12 % (0-11.0); NEUTROPHILS % (MANUAL) 65 (42-76); PLATELET ESTIMATE DECREASED; TARGET CELLS 1+
[2016-10-21 12:00] VITALS: BP 134/74
--- NOTE | 2016-10-21 12:30 | NUR ---
MS RN NOTE ON HD AT THIS TIME C\O PAIN IN BODY ,DILAUDID AND BENADRYL GIVEN ORDERED
--- NOTE | 2016-10-21 13:00 | NUR ---
MS RN NOTE DR SIMONS AWARE THAT HG 7.3 NO BLOOD TRANSFUSION ORDER GIVEN
--- NOTE | 2016-10-21 15:30 | NUR ---
MS RN NOTE HD COMPLETED 3 L OF FLUIDS WAS REMOVED
[2016-10-21 16:00] VITALS: BP 145/75
[2016-10-21] MEDS: CEFTAZIDIME 1 G in IV D5W 50 ML IV SCH (16:12)
[2016-10-21 16:40] VITALS: BP 145/75
--- NOTE | 2016-10-21 18:46 | NUR ---
MS RN NOTE HAVING DINNER , ABLE TO EAT SELF , ALL NEEDS ATTENDED, NOT IN ACUTE DISTRESS
[2016-10-21 20:00] VITALS: BP 150/86
--- NOTE | 2016-10-21 20:40 | NUR ---
RN INITIAL NOTES RECEIVED PX FROM AMBERLY TOURE RN; PX AWAKE, ALERT, ORIENTED X 3, ON NC AT 2 LPM, PX MOVES BY SELF AND INDEPENDENTLY; NOTED PORT-A-CATH ON RIGHT CHEST, WITH DRESSSING CLEAN, DRY, INTACT; RT UA AV SHUNT; COMPLAINED OF LOWER BACK PAIN, DILAUDID GIVEN, COMPLAINED OF ITCHING, BENADRYL GIVEN IV; DENIED SOB, N/V, DIZZINESS; DISCUSSED PLAN OF CARE.
--- NOTE | 2016-10-22 | NUR ---
RN NOTES PER RT, PX REFUSED BREATHING TREAMENT, EDUCATED; NOT IN DISTRESS, RESP EVEN AND UNLABORED
[2016-10-22] MEDS: diphenhydrAMINE HCL 50 MG/ML VIAL IV PRN ×6 (00:31→21:08)
[2016-10-22] MEDS: HYDROMORPHONE 1 MG/1 ML DISP.SYRIN IV PRN ×6 (00:32→21:08)
[2016-10-22] MEDS: IPRATROPIUM NEB FS 0.5 MG/2.5 ML AMPUL.NEB NEB SCH ×6 (02:51→23:30)
[2016-10-22] MEDS: ALBUTEROL FS 2.5 MG/3 ML VIAL.NEB NEB SCH ×6 (02:51→23:30)
[2016-10-22 04:00] VITALS: BP 133/78
[2016-10-22] MEDS ORDERED: IV NS 0.9% 250 ML IV ONE ×2 (04:21→20:38)
--- NOTE | 2016-10-22 05:10 | NUR ---
RN NOTES EARLY AM CARE RENDERED; CHANGED DRESSING ON THE SACRAL AREA USING HYDROGEL AND COVERED BY MEPILEX; PX NOTED TO BE TAKING OFF O2 CANNULA DESPITE INSTRUCTION, O2 SAT RANGED FROM 90-92%, NOT IN DISTRESS, RESP EVEN AND UNLABORED, CLEAR LUNGS.
--- NOTE | 2016-10-22 06:43 | NUR ---
RN NOTES PX CONDITION AND NEURO STATUS UCHANGED; NOT IN DISTRESS; DENIED PAIN, SOB, N/V; MEPILEX ON COCCYX AREA REMAINED CLEAN, DRY, INTACT; PORT A CATH REMAINED PATENT AND INTACT; NO OTHER SKIN ISSUES; WILL ENDORSE TO NEXT RN.
--- NOTE | 2016-10-22 07:38 | NUR ---
RN INITIAL NOTE PT RECEIVED IN BED, RESTING COMFORTABLY. PT IS AWAKE AND ALERT. HE IS ABLE TO MAKE NEEDS KNOWN NO S/S OF PAIN OR DISCOMFORT. RESPIRATIONS ARE EVEN AND UNLABORED. NO S/S OF RESPIRATORY DISTRESS OR SOB. SATING WELL ON ROOM AIR. SKIN IS DRY AND WARM TO TOUCH. SAFETY PRECAUTIONS IMPLEMENTED. BED IN LOW, LOCKED POSITION. TWO SIDE RAILS UP. CALL RIGHT WITHIN EASY REACH. WILL MONITOR FREQUENTLY.
[2016-10-22 08:00] VITALS: BP 108/71
[2016-10-22 08:08] LABS: BASOPHILS % (AUTO) 0.1 % (0.0-2.0); EOSINOPHILS # (AUTO) 0.1 /CMM (0.0-0.7); EOSINOPHILS % (AUTO) 1.2 % (0.0-6.0); LYMPHOCYTES # (AUTO) 2.7 /CMM (0.8-4.8); LYMPHOCYTES % (AUTO) 27.5 % (20.0-44.0); MEAN CORPUSCULAR HEMOGLOBIN 30 PG (26.0-33.0); MEAN CORPUSCULAR HGB CONC 34 g/dl (31.0-36.0); MEAN CORPUSCULAR VOLUME 87 fL (80-96); MONOCYTES # (AUTO) 0.9 /CMM (0.1-1.30); MONOCYTES % (AUTO) 9.6 % (2.0-12.0); NEUTROPHILS % (AUTO) 61.6 % (43.0-81.0); RDW COEFFICIENT OF VARIATION 16.5 (11.5-15.0); RED BLOOD CELL COUNT(AUTO) 2.26 MIL/uL (4.5-6.0); WHITE BLOOD COUNT (AUTO) 9.7 K/uL (4.3-11.0)
[2016-10-22 08:16] LABS: HEMATOCRIT 20 % (39-51); HEMOGLOBIN 6.7 g/dL (13.5-17.5)
[2016-10-22 08:19] LABS: PLATELET COUNT (AUTO) 17 /CMM (150-450)
[2016-10-22] MEDS: SEVELAMER CARBONATE 800 MG TABLET PO SCH ×3 (08:21→16:59)
[2016-10-22] MEDS: CINACALCET HCL 30 MG TABLET PO SCH (08:21)
[2016-10-22] MEDS: HYDROXYUREA 500 MG CAPSULE PO SCH (08:21)
[2016-10-22] MEDS: FOLIC ACID 1 MG TABLET PO SCH (08:21)
[2016-10-22] MEDS: CARVEDILOL 12.5 MG TABLET PO SCH ×2 (08:22→21:07)
[2016-10-22] MEDS: SUCRALFATE 1 G TABLET PO SCH ×3 (08:22→16:59)
[2016-10-22] MEDS: AMLODIPINE BESYLATE 10 MG TABLET PO SCH (08:22)
[2016-10-22] MEDS: HYDROGEL DRESSING 90 GM TUBE TP SCH (08:43)
[2016-10-22 08:50] LABS: LYMPHOCYTES % (MANUAL) 25 % (16-48); MONOCYTES % (MANUAL) 8 % (0-11.0); NEUTROPHILS % (MANUAL) 67 (42-76); PLATELET ESTIMATE DECREASED
--- NOTE | 2016-10-22 10:00 | NUR ---
RN NOTE PLT COUNT CRITICAL LOW AND HGB. MADE AWARE
[2016-10-22] MEDS: CEFTAZIDIME 1 G in IV D5W 50 ML IV SCH (14:39)
[2016-10-22 16:00] VITALS: BP 128/66
--- NOTE | 2016-10-22 17:00 | NUR ---
RN NOTE PER MD ORDER TYPE AND SCREEN AND PRBC
--- NOTE | 2016-10-22 19:20 | NUR ---
RN CLOSING NOTE PT RESTING IN BED COMFORTABLY. ALL MD ORDERS CARRIED OUT. REPORT WILL BE GIVEN TO PM RN FOR CM.
--- NOTE | 2016-10-22 19:30 | NUR ---
MS RN INITIAL NOTE RECEIVED REPORT FROM SOSA CRENSHAW. PT IN BED, A/A/O X3. LUNG SOUNDS RHONCHI AND DIMINISHED AT LOWER BASES. BOWEL SOUNDS HYPOACTIVE. PULSES PRESENT IN ALL EXTREMITIES. PT SKIN IS VERY DRY THROUGHOUT. RIGHT AV SHUNT. RIGHT CW BLANCA CATH ACCESS. ANURIC. BED IN LOW LOCKED POSITION. CALL LIGHT WITHIN REACH. WILL CONTINUE TO MONITOR.
[2016-10-22 20:00] VITALS: BP 126/76
--- NOTE | 2016-10-22 20:25 | NUR ---
MS RN PRBC READY FOR TRANSFUSION. PTS ONLY ACCESS IS BLANCA CATH. CALLED DR MOYA FOR AN OKAY TO USE FOR BLOOD TRANSFUSION. DR MOYA WOULD LIKE A MIDLINE ACCESS FOR BLOOD. HGB 6.7. WILL CONTINUE TO MONITOR.
[2016-10-22] MEDS ORDERED: BLOOD IV SET 1 EA INFUS.SET MC ONE (20:38)
--- NOTE | 2016-10-22 20:45 | NUR ---
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
--- NOTE | 2016-10-22 23:15 | NUR ---
MS RN 20 G LEFT FA STARTED BY CANDLE POURER.
[2016-10-22 23:43] VITALS: BP 106/75
--- NOTE | 2016-10-22 23:45 | NUR ---
MS RN BLOOD STARTED.
[2016-10-22 23:58] VITALS: BP 125/72
[2016-10-23] VITALS (7 sets, daily range): BP systolic 113–146; BP diastolic 67–77
[2016-10-23] MEDS: diphenhydrAMINE HCL 50 MG/ML VIAL IV PRN ×6 (01:13→21:30)
[2016-10-23] MEDS: HYDROMORPHONE 1 MG/1 ML DISP.SYRIN IV PRN ×6 (01:13→21:29)
[2016-10-23] MEDS: ALBUTEROL FS 2.5 MG/3 ML VIAL.NEB NEB SCH ×6 (03:30→23:30)
[2016-10-23] MEDS: IPRATROPIUM NEB FS 0.5 MG/2.5 ML AMPUL.NEB NEB SCH ×6 (03:30→23:30)
[2016-10-23 07:21] LABS: BASOPHILS % (AUTO) 0.1 % (0.0-2.0); EOSINOPHILS # (AUTO) 0.2 /CMM (0.0-0.7); EOSINOPHILS % (AUTO) 2.5 % (0.0-6.0); HEMATOCRIT 21 % (39-51); HEMOGLOBIN 7.1 g/dL (13.5-17.5); LYMPHOCYTES # (AUTO) 1.6 /CMM (0.8-4.8); LYMPHOCYTES % (AUTO) 18.4 % (20.0-44.0); MEAN CORPUSCULAR HEMOGLOBIN 29 PG (26.0-33.0); MEAN CORPUSCULAR HGB CONC 33 g/dl (31.0-36.0); MEAN CORPUSCULAR VOLUME 87 fL (80-96); MONOCYTES % (AUTO) 11.7 % (2.0-12.0); NEUTROPHILS % (AUTO) 67.3 % (43.0-81.0); RDW COEFFICIENT OF VARIATION 16.3 (11.5-15.0); RED BLOOD CELL COUNT(AUTO) 2.44 MIL/uL (4.5-6.0); WHITE BLOOD COUNT (AUTO) 8.9 K/uL (4.3-11.0)
[2016-10-23 08:21] LABS: PLATELET COUNT (AUTO) 16 /CMM (150-450)
[2016-10-23] MEDS: SEVELAMER CARBONATE 800 MG TABLET PO SCH ×3 (08:22→17:02)
[2016-10-23] MEDS: CINACALCET HCL 30 MG TABLET PO SCH (08:23)
[2016-10-23] MEDS: FOLIC ACID 1 MG TABLET PO SCH (08:23)
[2016-10-23] MEDS: SUCRALFATE 1 G TABLET PO SCH ×3 (08:23→17:02)
[2016-10-23] MEDS: AMLODIPINE BESYLATE 10 MG TABLET PO SCH (08:24)
[2016-10-23] MEDS: CARVEDILOL 12.5 MG TABLET PO SCH ×2 (08:25→21:29)
[2016-10-23] MEDS: HYDROGEL DRESSING 90 GM TUBE TP SCH (08:26)
[2016-10-23] MEDS: HYDROXYUREA 500 MG CAPSULE PO SCH (08:27)
--- NOTE | 2016-10-23 08:30 | NUR ---
RN INITIAL NOTES PT ON BEDREST, AOX4, ON O2 2L/MIN, NO SOB, LUNGS CLEAR ON RIGHT SIDE AND COARSE/RHONCHI ON LEFT, CO PAIN 8/10, IN LOWER BACK PAIN, ON HEMODIALYSIS, R UA AV SHUNT THRILL PALPATED, BRUIT HEARD, ON RENAL DIET, NO EDEMA NOTED, VS STABLE, NO FEVER, WBC 8.9, H/H7.1/21.2, PLT 16, WOUND TREATED ORDERED, HEEL OFFLOAD, ON ISOFLEX MATTRESS, KEPT CLEAN AND DRY, PT ABLE TO TURN ON HIS OWN, TEACHING DONE TO PT, HE VERBALIZED UNDERSTANDING. SAFETY MAINTAINED, BED IN LOW AND LOCKED POSITION, CALL LIGHT WITHIN REACH, SIDE RAILS UPx2. WILL CONTINUE TO MONITOR.
[2016-10-23 12:02] LABS: EOSINOPHILS % (MANUAL) 1 % (0-4); LYMPHOCYTES % (MANUAL) 13 % (16-48); MONOCYTES % (MANUAL) 6 % (0-11.0); NEUTROPHILS % (MANUAL) 80 (42-76)
[2016-10-23 12:03] LABS: PLATELET ESTIMATE DECREASED
[2016-10-23 12:04] LABS: ANISOCYTOSIS 1+
[2016-10-23] MEDS ORDERED: SECONDARY IV SET 1 EA INFUS.SET MC ONE ×2 (13:14→17:06)
[2016-10-23] MEDS ORDERED: IV SET PRIMARY PUMP SET 1 EA INFUS.SET MC ONE (13:14)
[2016-10-23] MEDS ORDERED: IV NS 0.9% 250 ML IV ONE (13:15)
[2016-10-23] MEDS ORDERED: DEFEROXAMINE IV ONE (14:00)
[2016-10-23] MEDS ORDERED: D5W IV ONE (14:00)
[2016-10-23] MEDS: CEFTAZIDIME 1 G in IV D5W 50 ML IV SCH (17:15)
--- NOTE | 2016-10-23 19:30 | NUR ---
MS RN INITIAL NOTES RECEIVED PATIENT ASLEEP. NO S/S OF PAIN OR DISCOMFORT. RESPIRATIONS EVEN AND UNLABORED. ON ROOM AIR. SKIN WARM AND DRY TO TOUCH. WITH RCW PORT A CATH. RIGHT ARM AV SHUNT. SIDE RAILS UP AND LOCKED. BED KEPT AT LOWEST POSITION. CALL LIGHT KEPT WITHIN EASY REACH. WILL CONTINUE TO MONITOR.
--- NOTE | 2016-10-23 20:19 | NUR ---
PT REFUSED RESP TX AT THIS TIME. NO S/S OF SOB NOTED. MULTIPLE ATTEMPTS MADE Addendum: 10/23/16 at 2019 by CASANDRA COHEN RT Amended: Links added.
[2016-10-24] MEDS: HYDROMORPHONE 1 MG/1 ML DISP.SYRIN IV PRN ×6 (01:20→21:22)
[2016-10-24] MEDS: IPRATROPIUM NEB FS 0.5 MG/2.5 ML AMPUL.NEB NEB SCH ×6 (02:57→23:30)
[2016-10-24] MEDS: ALBUTEROL FS 2.5 MG/3 ML VIAL.NEB NEB SCH ×6 (02:57→23:29)
--- NOTE | 2016-10-24 02:58 | NUR ---
PT REFUSED RESP THERAPY TX FOR THE NIGHT. NO S/S OF SOB NOTED
[2016-10-24 04:00] VITALS: BP 142/76
[2016-10-24] MEDS: diphenhydrAMINE HCL 50 MG/ML VIAL IV PRN ×5 (05:25→21:21)
[2016-10-24 06:57] LABS: BASOPHILS % (AUTO) 0.2 % (0.0-2.0); EOSINOPHILS # (AUTO) 0.2 /CMM (0.0-0.7); EOSINOPHILS % (AUTO) 1.9 % (0.0-6.0); LYMPHOCYTES # (AUTO) 2.3 /CMM (0.8-4.8); LYMPHOCYTES % (AUTO) 26.9 % (20.0-44.0); MEAN CORPUSCULAR HEMOGLOBIN 29 PG (26.0-33.0); MEAN CORPUSCULAR HGB CONC 33 g/dl (31.0-36.0); MEAN CORPUSCULAR VOLUME 88 fL (80-96); MONOCYTES # (AUTO) 1.1 /CMM (0.1-1.30); MONOCYTES % (AUTO) 12.3 % (2.0-12.0); NEUTROPHILS % (AUTO) 58.7 % (43.0-81.0); RDW COEFFICIENT OF VARIATION 16.9 (11.5-15.0); RED BLOOD CELL COUNT(AUTO) 2.24 MIL/uL (4.5-6.0); WHITE BLOOD COUNT (AUTO) 8.5 K/uL (4.3-11.0)
--- NOTE | 2016-10-24 07:10 | NUR ---
MS RN CLOSING NOTES NO SIGNIFICANT CHANGES OVERNIGHT. PAIN MANAGED NEEDED. DENIES SOB. ALL NEEDS ANTICIPATED AND MET. KEPT CLEAN AND DRY. REMINDED TO TURN AND REPOSITION. SIDE RAILS UP AND LOCKED. BED KEPT AT LOWEST POSITION. CALL LIGHT KEPT WITHIN EASY REACH. CONTINUITY OF CARE ENDORSED TO AM NURSE.
[2016-10-24 07:12] LABS: HEMATOCRIT 20 % (39-51); HEMOGLOBIN 6.5 g/dL (13.5-17.5)
[2016-10-24 07:13] LABS: PLATELET COUNT (AUTO) 17 /CMM (150-450)
--- NOTE | 2016-10-24 07:13 | NUR ---
RECEIVED CRITICAL LAB VALUE, HGB 6.5 AND PLT 17. RELAYED LAB VALUES TO AM NURSE SOSA.
--- NOTE | 2016-10-24 07:16 | NUR ---
PATIENT REFUSED AM CARE, STATED HE WOULD LIKE TO BATHED LATER IN THE DAY.
[2016-10-24 08:00] VITALS: BP_SYST 149; BP_SYST 96; BP_DIAS 60; BP_DIAS 92
--- NOTE | 2016-10-24 08:00 | NUR ---
RN INITIAL NOTE PT RECEIVED IN BED, AWAKE, ALERT AND ORIENTED. ABLE TO MAKE NEEDS KNOWN. SR ON TELE MONITOR. RESPIRATIONS ARE EVEN AND UNLABORED. NO S/S OF RESPIRATORY DISTRESS OR SOB. SATING WELL ON 4L NC. DENIES PAIN AT THIS TIME. IV SITE C/D/I. IV LINE FLUSHED, PATENT AND INTACT. SAFETY MEASURES IMPLEMENTED. BED IN LOCKED, LOW POSITION. CALL LIGHT WITHIN REACH. WILL CONTINUE TO MONITOR.
--- NOTE | 2016-10-24 08:00 | NUR ---
RN INITIAL NOTE PT RECEIVED IN BED, AWAKE, ALERT AND ORIENTED. ABLE TO MAKE NEEDS KNOWN. RESPIRATIONS ARE EVEN AND UNLABORED. NO S/S OF RESPIRATORY DISTRESS OR SOB. SATING WELL ON 2L N/C DENIES PAIN AT THIS TIME. IV SITE C/D/I. IV LINE FLUSHED, PATENT AND INTACT. SAFETY MEASURES IMPLEMENTED. BED IN LOCKED, LOW POSITION. CALL LIGHT WITHIN REACH. WILL CONTINUE TO MONITOR.
--- NOTE | 2016-10-24 09:08 | NUR ---
PATIENT REFUSED, FLOWER SWAN NOTIFIED. NO RESP DISTRESS NOTED
--- NOTE | 2016-10-24 09:13 | NUR ---
RN NOTE PT REFUSED BREATHING TREATMENT. FEELS HE DOES NOT NEED IT. OXYGEN SATURATION 99% ON 4L N/C
[2016-10-24 09:26] LABS: EOSINOPHILS % (MANUAL) 2 % (0-4); HYPOCHROMASIA 2+; LYMPHOCYTES % (MANUAL) 14 % (16-48); MONOCYTES % (MANUAL) 11 % (0-11.0); NEUTROPHILS % (MANUAL) 73 (42-76); PLATELET ESTIMATE DECREASED
[2016-10-24 09:27] LABS: ANISOCYTOSIS 1+
[2016-10-24] MEDS: CINACALCET HCL 30 MG TABLET PO SCH (09:36)
[2016-10-24] MEDS: SEVELAMER CARBONATE 800 MG TABLET PO SCH ×3 (09:36→17:29)
[2016-10-24] MEDS: SUCRALFATE 1 G TABLET PO SCH ×3 (09:36→17:29)
[2016-10-24] MEDS: FOLIC ACID 1 MG TABLET PO SCH (09:37)
[2016-10-24] MEDS: CARVEDILOL 12.5 MG TABLET PO SCH ×2 (09:37→21:21)
[2016-10-24] MEDS: AMLODIPINE BESYLATE 10 MG TABLET PO SCH (09:37)
[2016-10-24] MEDS: HYDROGEL DRESSING 90 GM TUBE TP SCH (09:38)
--- NOTE | 2016-10-24 12:12 | NUR ---
PT REFUSED TX, RN SOSA NOTIFIED, NO RESP DISTRESS NOTED
--- NOTE | 2016-10-24 15:21 | NUR ---
PT REFUSED TX , NO RESP DISTRESS NOTED, RN SOSA NOTIFIED
[2016-10-24] MEDS: CEFTAZIDIME 1 G in IV D5W 50 ML IV SCH (15:34)
[2016-10-24 16:00] VITALS: BP_SYST 113; BP_SYST 136; BP_DIAS 53; BP_DIAS 75
--- NOTE | 2016-10-24 19:13 | NUR ---
RN CLOSING NOTES PT RESTING IN BED COMFORTABLY, ALL MD ORDERS CARRIED OUT. PT KEPT CLEAN AND DRY. REPORT WILL BE GIVEN TO PM RN FOR CONTINUATION OF CARE.
--- NOTE | 2016-10-24 19:29 | NUR ---
RT PT REFUSED MEDS. NO SOB OR RESP DISTRESS NOTED AT THIS TIME.
--- NOTE | 2016-10-24 19:30 | NUR ---
MS RN INITIAL NOTES RECEIVED PATIENT AWAKE A/OX4, ABLE TO MAKE NEEDS KNOWN. DENIES SOB AT THIS TIME. SKIN WARM AND DRY TO TOUCH. WITH RCW PORT A CATH PATENT AND INTACT. RIGHT AV SHUNT POSITIVE BRUIT AND THRILL. C/O 6/10 BACK PAIN AT THIS TIME. WILL GIVE NEXT DUE PAIN MEDICATION. SIDE RAILS UP AND LOCKED. BED KEPT AT LOWEST POSITION. CALL LIGHT KEPT WITHIN EASY REACH. WILL CONTINUE TO MONITOR.
[2016-10-24 20:00] VITALS: BP 153/89
[2016-10-25] MEDS: HYDROMORPHONE 1 MG/1 ML DISP.SYRIN IV PRN ×6 (01:24→21:39)
[2016-10-25] MEDS: diphenhydrAMINE HCL 50 MG/ML VIAL IV PRN ×5 (01:29→21:39)
[2016-10-25] MEDS: ALBUTEROL FS 2.5 MG/3 ML VIAL.NEB NEB SCH ×6 (03:13→23:30)
[2016-10-25] MEDS: IPRATROPIUM NEB FS 0.5 MG/2.5 ML AMPUL.NEB NEB SCH ×6 (03:13→23:30)
[2016-10-25 04:00] VITALS: BP 127/77
[2016-10-25 06:37] LABS: BASOPHILS % (AUTO) 0.1 % (0.0-2.0); EOSINOPHILS # (AUTO) 0.2 /CMM (0.0-0.7); EOSINOPHILS % (AUTO) 2.3 % (0.0-6.0); LYMPHOCYTES # (AUTO) 1.9 /CMM (0.8-4.8); LYMPHOCYTES % (AUTO) 21.3 % (20.0-44.0); MEAN CORPUSCULAR HEMOGLOBIN 29 PG (26.0-33.0); MEAN CORPUSCULAR HGB CONC 34 g/dl (31.0-36.0); MEAN CORPUSCULAR VOLUME 87 fL (80-96); MONOCYTES # (AUTO) 1.3 /CMM (0.1-1.30); MONOCYTES % (AUTO) 13.9 % (2.0-12.0); NEUTROPHILS # (AUTO) 5.6 /CMM (1.8-8.9); NEUTROPHILS % (AUTO) 62.4 % (43.0-81.0); RDW COEFFICIENT OF VARIATION 17.6 (11.5-15.0); RED BLOOD CELL COUNT(AUTO) 2.24 MIL/uL (4.5-6.0)
[2016-10-25 06:49] LABS: HEMATOCRIT 20 % (39-51); HEMOGLOBIN 6.5 g/dL (13.5-17.5); PLATELET COUNT (AUTO) 22 /CMM (150-450)
--- NOTE | 2016-10-25 07:00 | NUR ---
RN NOTE PT RECEIVED ON BED, A/Ox3, RESPIRATION EVEN AND UNLABORED, ON 02 2L N/C , NO SOB NOTED, R CW BLANCA CATH CDI, IV LINE FLUSHED, PATENT AND INTACT. SAFETY MEASURES IMPLEMENTED. SR UP x3, BED LOCKED AND IN LOWEST POSITION , WILL CONTINUE TO MONITOR PT CLOSELY AND NOTIFY MD FOR ANY SIGNIFICANT CHANGES.
--- NOTE | 2016-10-25 07:29 | NUR ---
MS RN CLOSING NOTES NO SIGNIFICANT CHANGES OVERNIGHT. PAIN MANAGED NEEDED. DENIES SOB. ALL NEEDS ANTICIPATED AND MET. KEPT CLEAN AND DRY. REMINDED TO TURN AND REPOSITION. SIDE RAILS UP AND LOCKED. BED KEPT AT LOWEST POSITION. CALL LIGHT KEPT WITHIN EASY REACH. CONTINUITY OF CARE ENDORSED TO AM NURSE. Addendum: 10/25/16 at 0730 by EVERETT EVANS RN RELAYED CRITICAL LAB VALUE HGB 6.5, PLT 22 TO AM NURSE TO FOLLOW UP WITH .
[2016-10-25 08:00] VITALS: BP 131/72
[2016-10-25] MEDS: FOLIC ACID 1 MG TABLET PO SCH (08:12)
[2016-10-25] MEDS: SEVELAMER CARBONATE 800 MG TABLET PO SCH ×3 (08:13→17:37)
[2016-10-25] MEDS: SUCRALFATE 1 G TABLET PO SCH ×3 (08:13→17:37)
[2016-10-25] MEDS: CINACALCET HCL 30 MG TABLET PO SCH (08:13)
[2016-10-25] MEDS: CARVEDILOL 12.5 MG TABLET PO SCH ×2 (08:14→21:39)
[2016-10-25] MEDS: AMLODIPINE BESYLATE 10 MG TABLET PO SCH (08:14)
[2016-10-25] MEDS: Z GUARD REMEDY 2 OZ OINT TP PRN (08:15)
[2016-10-25] MEDS: HYDROGEL DRESSING 90 GM TUBE TP SCH (08:16)
[2016-10-25 08:45] LABS: EOSINOPHILS % (MANUAL) 2 % (0-4); LYMPHOCYTES % (MANUAL) 21 % (16-48); MONOCYTES % (MANUAL) 16 % (0-11.0); NEUTROPHILS % (MANUAL) 61 (42-76); PLATELET ESTIMATE DECREASED
[2016-10-25 08:46] LABS: ANISOCYTOSIS 1+; HYPOCHROMASIA 1+
--- NOTE | 2016-10-25 13:46 | NUR ---
RN NOTES O2 SAT 99% ON 2L O2 N/C . RA O2 SAT 97% , O2 DISCONTINUED PER MD ORDER.
[2016-10-25] MEDS: CEFTAZIDIME 1 G in IV D5W 50 ML IV SCH (14:47)
--- NOTE | 2016-10-25 14:59 | NUR ---
RN NOTES RA O2 SAT 88% , PT ZAINA ANY DISTRESS , PT PLACED BACK ON 02 AT 2L N/C , O2 SAT 96% ON 2L O2 N/C .
[2016-10-25 16:00] VITALS: BP 136/89
--- NOTE | 2016-10-25 18:31 | NUR ---
RN NOTES PT AT REST, REMAINS STABLE , MEDICATED PER MD ORDER . RCW PORT A CATH SITE CLEAN AND DRY , NO SIGNIFICANT CHANGES NOTED ON THIS SHIFT .
--- NOTE | 2016-10-25 19:30 | NUR ---
MS RN INITIAL NOTES RECEIVED PATIENT AWAKE A/OX4 WITH 4/10 GEN BODY PAIN. DENIES SOB, ONLY HAS PAIN DURING INSPIRATION. RESPIRATIONS EVEN AND UNLABORED ON 2LPMO2 VIA NC. WILL TITRATE O2. SKIN WARM AND DRY TO TOUCH. WITH RCW BLANCA CATH PATENT AND INTACT, JAX AV SHUNT POSITIVE BRUIT AND THRILL. HOB ELEVATED. SIDE RAILS UP AND LOCKED. BED KEPT AT LOWEST POSITION. CALL LIGHT KEPT WITHIN EASY REACH. WILL CONTINUE TO MONITOR.
[2016-10-25 20:00] VITALS: BP 144/90
--- NOTE | 2016-10-25 21:00 | NUR ---
MS RN NOTES ATTEMPTED TO REMOVE O2 FROM PATIENT, WHEN AWAKE, SPO2 91-95% ON ROOM AIR. WHEN ASLEEP PATIENT SPO2 83%, PLACED PATIENT BACK ON 2LPMO2 VIA NC. WILL CONTINUE TO MONITOR.
--- NOTE | 2016-10-25 23:36 | NUR ---
RT PT REFUSED TX AT THIS TIME. PT WANTS TO SLEEP. NO SOB OR DISTRESS NOTED AT THIS TIME.
[2016-10-26] MEDS: HYDROMORPHONE 1 MG/1 ML DISP.SYRIN IV PRN ×6 (01:35→22:24)
[2016-10-26] MEDS: diphenhydrAMINE HCL 50 MG/ML VIAL IV PRN ×5 (01:35→18:09)
[2016-10-26] MEDS: IPRATROPIUM NEB FS 0.5 MG/2.5 ML AMPUL.NEB NEB SCH ×6 (03:30→23:11)
[2016-10-26] MEDS: ALBUTEROL FS 2.5 MG/3 ML VIAL.NEB NEB SCH ×5 (03:30→19:54)
[2016-10-26 04:00] VITALS: BP 141/85
--- NOTE | 2016-10-26 06:27 | NUR ---
MS RN CLOSING NOTES NO SIGNIFICANT CHANGES OVERNIGHT. PAIN MANAGED NEEDED. ALL NEEDS ANTICIPATED AND MET. NO RESPIRATORY DISTRESS NOTED. SKIN WARM AND DRY TO TOUCH. SIDE RAILS UP AND LOCKED. BED KEPT AT LOWEST POSITION. CALL LIGHT KEPT WITHIN EASY REACH. WILL ENDORSE CONTINUITY CARE TO AM NURSE.
[2016-10-26 08:00] VITALS: BP 110/90
[2016-10-26] MEDS: SEVELAMER CARBONATE 800 MG TABLET PO SCH ×3 (08:43→16:17)
[2016-10-26] MEDS: FOLIC ACID 1 MG TABLET PO SCH (08:43)
[2016-10-26] MEDS: AMLODIPINE BESYLATE 10 MG TABLET PO SCH (08:44)
[2016-10-26] MEDS: CARVEDILOL 12.5 MG TABLET PO SCH ×2 (08:44→20:42)
[2016-10-26] MEDS: CINACALCET HCL 30 MG TABLET PO SCH (08:44)
[2016-10-26] MEDS: SUCRALFATE 1 G TABLET PO SCH ×3 (08:44→16:17)
[2016-10-26] MEDS: HYDROGEL DRESSING 90 GM TUBE TP SCH (09:53)
[2016-10-26 16:00] VITALS: BP 126/70
[2016-10-26] MEDS: CEFTAZIDIME 1 G in IV D5W 50 ML IV SCH (16:15)
[2016-10-26] MEDS ORDERED: IV NS 0.9% 250 ML IV ONE (16:21)
[2016-10-26] MEDS ORDERED: IV SET PRIMARY PUMP SET 1 EA INFUS.SET MC ONE (16:21)
[2016-10-26] MEDS ORDERED: SECONDARY IV SET 1 EA INFUS.SET MC ONE (16:21)
--- NOTE | 2016-10-26 19:19 | NUR ---
pt in stable condition,no c/o pain,no s/s of distress.breathing even and unlabored.all m.d orders noted and carried out.endorsed to next shift for continuity of care
[2016-10-26 20:00] VITALS: BP 136/87
[2016-10-26 20:01] VITALS: BP 136/87
[2016-10-27] MEDS: ALBUTEROL FS 2.5 MG/3 ML VIAL.NEB NEB SCH ×7 (01:12→23:31)
--- NOTE | 2016-10-27 01:13 | NUR ---
RT FORGOT TO SCAN MEDS AT 2334
[2016-10-27] MEDS: HYDROMORPHONE 1 MG/1 ML DISP.SYRIN IV PRN ×5 (02:30→19:52)
[2016-10-27] MEDS: IPRATROPIUM NEB FS 0.5 MG/2.5 ML AMPUL.NEB NEB SCH ×6 (03:30→23:31)
[2016-10-27 04:00] VITALS: BP 138/77
[2016-10-27] MEDS: diphenhydrAMINE HCL 50 MG/ML VIAL IV PRN ×4 (06:36→19:52)
--- NOTE | 2016-10-27 07:40 | NUR ---
RN NOTES SPOKE WITH DR FOSTER REGARDING PT. REPORTED CURRENT LABS AND PT CONDITION, NO NEW ORDER GIVEN AT THIS TIME.
--- NOTE | 2016-10-27 07:52 | NUR ---
RN INITIAL NOTES PT A/O x4, NO S/SX OF DISTRESS NOTED, PT IS IN BED, HOB 35 DEGREES ELEVATED, IV PORTACATH IS PATENT, NO S/SX OF INFECTION, SAFETY MEASURES MAINTAINED, CALLS LIGHTS WITHIN REACHED. WILL CONTINUE TO MONITOR
[2016-10-27 08:00] VITALS: BP 142/77
[2016-10-27] MEDS: SEVELAMER CARBONATE 800 MG TABLET PO SCH ×3 (10:41→17:24)
[2016-10-27] MEDS: FOLIC ACID 1 MG TABLET PO SCH (10:41)
[2016-10-27] MEDS: CINACALCET HCL 30 MG TABLET PO SCH (10:42)
[2016-10-27] MEDS: CARVEDILOL 12.5 MG TABLET PO SCH ×2 (10:43→20:00)
[2016-10-27] MEDS: AMLODIPINE BESYLATE 10 MG TABLET PO SCH (10:43)
[2016-10-27] MEDS: SUCRALFATE 1 G TABLET PO SCH ×3 (10:45→17:24)
[2016-10-27] MEDS: HYDROGEL DRESSING 90 GM TUBE TP SCH (10:46)
[2016-10-27 15:26] LABS: BASOPHILS % (AUTO) 0.1 % (0.0-2.0); EOSINOPHILS # (AUTO) 0.2 /CMM (0.0-0.7); EOSINOPHILS % (AUTO) 1.5 % (0.0-6.0); LYMPHOCYTES # (AUTO) 2.4 /CMM (0.8-4.8); LYMPHOCYTES % (AUTO) 20.9 % (20.0-44.0); MEAN CORPUSCULAR HEMOGLOBIN 29 PG (26.0-33.0); MEAN CORPUSCULAR HGB CONC 34 g/dl (31.0-36.0); MEAN CORPUSCULAR VOLUME 86 fL (80-96); MONOCYTES # (AUTO) 1.1 /CMM (0.1-1.30); MONOCYTES % (AUTO) 9.9 % (2.0-12.0); NEUTROPHILS # (AUTO) 7.7 /CMM (1.8-8.9); NEUTROPHILS % (AUTO) 67.6 % (43.0-81.0); RDW COEFFICIENT OF VARIATION 17.6 (11.5-15.0); RED BLOOD CELL COUNT(AUTO) 2.18 MIL/uL (4.5-6.0); WHITE BLOOD COUNT (AUTO) 11.4 K/uL (4.3-11.0)
[2016-10-27 15:34] LABS: HEMATOCRIT 19 % (39-51); HEMOGLOBIN 6.4 g/dL (13.5-17.5)
[2016-10-27 15:35] LABS: PLATELET COUNT (AUTO) 20 /CMM (150-450)
[2016-10-27] MEDS: CEFTAZIDIME 1 G in IV D5W 50 ML IV SCH (15:58)
[2016-10-27 16:00] VITALS: BP 140/82
[2016-10-27 16:38] LABS: EOSINOPHILS % (MANUAL) 1 % (0-4); LYMPHOCYTES % (MANUAL) 21 % (16-48); MONOCYTES % (MANUAL) 10 % (0-11.0); NEUTROPHILS % (MANUAL) 68 (42-76); PLATELET ESTIMATE DECREASED
--- NOTE | 2016-10-27 18:49 | NUR ---
RN CLOSING NOTES PT IS BED, HOB OF ELEVATED AT 35 DEGREES. PT IS ON OXYGEN NC 2L SAT 98. PT WOUND TX PROVIDED, PT WAS TURNED AND REPOSITIONED Q2H, KEPT CLEAN AND DRY. IV SITES PATENT, NO S/SX OF INFECTION/INFILTRATION. PT HAD HEMODIALYSIS TODAY, PT BEBE IT WELL. ALL MEDICATIONS GIVEN ORDERED, ALL NEEDS MET, SAFETY MEASURES MAINTAINED, CALL LIGHTS WITHIN REACHED.ENDORSED TO THE NIGHT NURSE.
--- NOTE | 2016-10-27 19:30 | NUR ---
RN OPENING NOTES; RECEIVED PT ON BED AWAKE ALOX4 AND VERBALLY RESPONSIVE. ON O2 VIA NC AT 2LPM AT THIS TIME. TOLERATED WELL NOT IN APPARENT DISTRESS. IV ACCESS ON R CHEST WALL PORTACATH, WITH NS AT TKO, FLUSHED AND WITH GOOD BLOOD RETURN. WITH NOTED WITH JAX AV SHUNT, POSITIVE FOR BRUITS AND THRILLS. PT UNDERWENT HD EARLIER IN AM. WITH COMPLAINTS OF PAIN ON LOWER BACK RATED 8/10 AND REQUESTED TO HAVE IT GIVEN WITH BENADRYL PRN. PRN MEDS TO BE GIVEN ORDERED. REPOSITIONED AND SAFETY AND COMFORT ENSURED. CALL LIGHT WITHIN REACH. ASPIRATION PREC OBSERVED. CONTINUOUSLY MONITORED ACCORDINGLY.
[2016-10-27 20:00] VITALS: BP 147/82
[2016-10-28] VITALS (9 sets, daily range): BP systolic 132–157; BP diastolic 70–97
[2016-10-28] MEDS: HYDROMORPHONE 1 MG/1 ML DISP.SYRIN IV PRN ×6 (00:35→22:07)
[2016-10-28] MEDS: diphenhydrAMINE HCL 50 MG/ML VIAL IV PRN ×6 (00:35→22:07)
[2016-10-28] MEDS: IPRATROPIUM NEB FS 0.5 MG/2.5 ML AMPUL.NEB NEB SCH ×6 (03:30→22:36)
[2016-10-28] MEDS: ALBUTEROL FS 2.5 MG/3 ML VIAL.NEB NEB SCH ×6 (03:30→22:36)
[2016-10-28] MEDS ORDERED: IV NS 0.9% 250 ML IV ONE ×2 (05:16→10:05)
[2016-10-28 07:16] LABS: BASOPHILS % (AUTO) 0.1 % (0.0-2.0); EOSINOPHILS # (AUTO) 0.1 /CMM (0.0-0.7); EOSINOPHILS % (AUTO) 1.2 % (0.0-6.0); LYMPHOCYTES # (AUTO) 2.3 /CMM (0.8-4.8); LYMPHOCYTES % (AUTO) 19.6 % (20.0-44.0); MEAN CORPUSCULAR HEMOGLOBIN 29 PG (26.0-33.0); MEAN CORPUSCULAR HGB CONC 34 g/dl (31.0-36.0); MEAN CORPUSCULAR VOLUME 87 fL (80-96); MONOCYTES # (AUTO) 1.1 /CMM (0.1-1.30); MONOCYTES % (AUTO) 9.8 % (2.0-12.0); NEUTROPHILS # (AUTO) 7.9 /CMM (1.8-8.9); NEUTROPHILS % (AUTO) 69.3 % (43.0-81.0); RDW COEFFICIENT OF VARIATION 17.6 (11.5-15.0); WHITE BLOOD COUNT (AUTO) 11.5 K/uL (4.3-11.0)
--- NOTE | 2016-10-28 07:27 | NUR ---
RN CLOSING NOTES: PT REMAINED STABLE ON BED NOT IN APPARENT DISTRESS. WITH EVEN AND UNLABORED BREATHING. WITH COMPLAINTS OF PAIN THROUGHOUT SHIFT, PRN MEDS GIVEN. SKIN CARE RENDERED. SAFETY MEASURES ENSURED. AM LABS DRAWN. ENDORSED TO AM SHIFT RN
[2016-10-28 07:35] LABS: RED BLOOD CELL COUNT(AUTO) 1.96 MIL/uL (4.5-6.0)
[2016-10-28 07:40] LABS: HEMATOCRIT 17 % (39-51); HEMOGLOBIN 5.8 g/dL (13.5-17.5); PLATELET COUNT (AUTO) 19 /CMM (150-450)
[2016-10-28] MEDS: CARVEDILOL 12.5 MG TABLET PO SCH ×2 (08:47→21:41)
[2016-10-28] MEDS: SUCRALFATE 1 G TABLET PO SCH ×3 (08:47→16:16)
[2016-10-28] MEDS: AMLODIPINE BESYLATE 10 MG TABLET PO SCH (08:47)
[2016-10-28] MEDS: SEVELAMER CARBONATE 800 MG TABLET PO SCH ×3 (08:47→16:16)
[2016-10-28] MEDS: CINACALCET HCL 30 MG TABLET PO SCH (08:48)
[2016-10-28] MEDS: HYDROGEL DRESSING 90 GM TUBE TP SCH (08:48)
[2016-10-28] MEDS: FOLIC ACID 1 MG TABLET PO SCH (08:48)
[2016-10-28 09:20] LABS: EOSINOPHILS % (MANUAL) 6 % (0-4); LYMPHOCYTES % (MANUAL) 20 % (16-48); MONOCYTES % (MANUAL) 6 % (0-11.0); NEUTROPHILS % (MANUAL) 66 (42-76)
[2016-10-28 09:21] LABS: BASOPHILS % (MANUAL) 0 % (0.0-2.0); REACTIVE LYMPHOCYTES 2 % (0-0)
[2016-10-28 09:22] LABS: ANISOCYTOSIS 1+; PLATELET ESTIMATE DECREASED; TARGET CELLS 2+
[2016-10-28] MEDS ORDERED: BLOOD IV SET 1 EA INFUS.SET MC ONE (10:05)
[2016-10-28] MEDS: CEFTAZIDIME 1 G in IV D5W 50 ML IV SCH (16:14)
--- NOTE | 2016-10-28 19:30 | NUR ---
RN OPENING NOTES: RECEIVED PT ON BED DROWSY, ON O2 VIA CA T 2LPM, TOLERATED WELL. NOT IN APPARENT DISTRESS. IV ACCESS ON RCW PORTACATH PATENT AND INTACT, FLUSHING WELL, WITH GOOD BLOOD RETURN, KEPT SL AT THIS TIME. WITH NOTED R ARM SWELLING, NOTICEABLY ON THE AV SHUNT AREA CONTINUING DOWN TO R FOREARM. NOTED WITH REPORTS OF PREVIOUS EPISODES OF ARM SWELLING. ELEVATED ARM AT THIS TIME. SAFETY MEASURES ENSURED AT ALL TIMES. CONTINUOUSLY MONITORED.
--- NOTE | 2016-10-28 19:40 | NUR ---
PT WAS ABLE TO COUGH OUT A SMALL AMOUNT OF WHITE/YELLOW RED TINGED SPUTUM INTO CUP AFTER BREATHING TX WAS GIVEN. RN WAS NOTIFIED.
--- NOTE | 2016-10-28 20:15 | NUR ---
RN NOTES: SPOKE TO MD ASSISTANT OCEANOGRAPHER AND RELAYED AND REPORTED T'S CONDITION TO DR. MOYA. WITH ORDERS FOR STAT JAX US DOPPLER. NOTED AND CARRIED OUT. AWAITING FOTR PROCEDURE TO BE DONE AT THIS TIME
--- NOTE | 2016-10-28 22:25 | NUR ---
RN NOTES: RESULTS OF ULTRASOUND OF JAX IN; WITH POSITIVE JAX BASILIC VEIN DVT. RELAYED BACK TO DR MOYA RE RESULTS. PER MD TO HAVE VASCULAR SURGERY TO EVALUATE IVC FILTER. NOTED. TO ENDORSE IN AM FOR EVAL. TO CONTINUE TO MONITOR AND ELEVATE JAX AT THIS TIME.
--- NOTE | 2016-10-28 22:43 | NUR ---
PT REFUSED BREATHING TX AT THIS TIME. RN NOTIFIED.
[2016-10-29] MEDS: HYDROMORPHONE 1 MG/1 ML DISP.SYRIN IV PRN ×5 (02:03→21:27)
[2016-10-29] MEDS: diphenhydrAMINE HCL 50 MG/ML VIAL IV PRN ×4 (02:03→16:40)
[2016-10-29] MEDS: ALBUTEROL FS 2.5 MG/3 ML VIAL.NEB NEB SCH ×6 (02:36→23:24)
[2016-10-29] MEDS: IPRATROPIUM NEB FS 0.5 MG/2.5 ML AMPUL.NEB NEB SCH ×6 (02:36→23:24)
[2016-10-29 04:00] VITALS: BP 145/82
[2016-10-29] MEDS ORDERED: IV NS 0.9% 250 ML IV ONE (06:30)
--- NOTE | 2016-10-29 06:42 | NUR ---
RN CLOSING NOTES: PT REMAINED IN BED ASLEEP. ON ROOM AIR AT THIS TIME, OFF FROM O2 THERAPY PER PULMO 'S RECOMMENDATION( TO TITRATE OFF O2 IF O2 SATS ABOVE 91%) TOLERATED WELL; TO MONITOR FOR SOB. RCW PORTACATH INTACT, DRESSING RE ENFORCED. JAX SWELLING STILL VISIBLE; HANG SHUNT POSITIVE STILL FOR BRUITS AND THRILLS. SAFETY MEASURES ENSURED. SKIN CARE GIVEN. AM LABS DONE; RESULTS PENDING. CONTINUOUSLY MONITORED. TO ENDORSE TO AM SHIFT RN
[2016-10-29 06:53] LABS: BASOPHILS # (AUTO) 0.1 /CMM (0.0-0.2); BASOPHILS % (AUTO) 0.4 % (0.0-2.0); EOSINOPHILS # (AUTO) 0.2 /CMM (0.0-0.7); EOSINOPHILS % (AUTO) 1.3 % (0.0-6.0); LYMPHOCYTES # (AUTO) 2.4 /CMM (0.8-4.8); LYMPHOCYTES % (AUTO) 19.1 % (20.0-44.0); MEAN CORPUSCULAR HEMOGLOBIN 30 PG (26.0-33.0); MEAN CORPUSCULAR HGB CONC 34 g/dl (31.0-36.0); MEAN CORPUSCULAR VOLUME 87 fL (80-96); MONOCYTES # (AUTO) 1.2 /CMM (0.1-1.30); MONOCYTES % (AUTO) 9.7 % (2.0-12.0); NEUTROPHILS # (AUTO) 8.7 /CMM (1.8-8.9); NEUTROPHILS % (AUTO) 69.5 % (43.0-81.0); RDW COEFFICIENT OF VARIATION 17.1 (11.5-15.0); RED BLOOD CELL COUNT(AUTO) 2.24 MIL/uL (4.5-6.0); WHITE BLOOD COUNT (AUTO) 12.5 K/uL (4.3-11.0)
[2016-10-29 07:30] LABS: HEMATOCRIT 20 % (39-51); HEMOGLOBIN 6.6 g/dL (13.5-17.5); PLATELET COUNT (AUTO) 21 /CMM (150-450)
--- NOTE | 2016-10-29 07:30 | NUR ---
RN INITIAL NOTE PT ON BED, AOX3, NO SOB, NO DISTRESS NOTED, CO PAIN IN ANKLE AND BACK, CAP REFILL <3 SEC, ANURIC, ON HD, PT ON RENAL DIET, EATING 50-75 %, PT AV FISTULA WORKING ON JAX, JAX SWELLING NOTED, ABDOMEN DISTENDED, BOWEL SOUNDS PRESENT, PT WOUND CARE DONE ORDERED, TURNED AND REPOSITIONED BY PT, KEPT CLEAN AND DRY, VS STABLE, TEACHING IS REINFORCED, SAFETY MAINTAINED, BED IN LOW AND LOCKED POSITION CALL LIGHT WITHIN REACH.
--- NOTE | 2016-10-29 07:35 | NUR ---
RN NOTES PT ON ROOM AIR, REFUSES TO USE NASAL CANNULA, SATURATION 99%.
[2016-10-29 08:00] VITALS: BP 142/79
[2016-10-29 08:32] LABS: EOSINOPHILS % (MANUAL) 1 % (0-4); LYMPHOCYTES % (MANUAL) 20 % (16-48); MONOCYTES % (MANUAL) 5 % (0-11.0); NEUTROPHILS % (MANUAL) 74 (42-76)
[2016-10-29 08:33] LABS: ANISOCYTOSIS 1+; PLATELET ESTIMATE DECREASED
[2016-10-29] MEDS: CINACALCET HCL 30 MG TABLET PO SCH (08:57)
[2016-10-29] MEDS: SEVELAMER CARBONATE 800 MG TABLET PO SCH ×3 (08:57→16:27)
[2016-10-29] MEDS: AMLODIPINE BESYLATE 10 MG TABLET PO SCH (08:57)
[2016-10-29] MEDS: FOLIC ACID 1 MG TABLET PO SCH (08:57)
[2016-10-29] MEDS: SUCRALFATE 1 G TABLET PO SCH ×3 (08:57→16:27)
[2016-10-29] MEDS: CARVEDILOL 12.5 MG TABLET PO SCH ×2 (08:58→21:26)
[2016-10-29] MEDS: HYDROGEL DRESSING 90 GM TUBE TP SCH (08:58)
[2016-10-29] MEDS ORDERED: LIDOCAINE HCL/PF 1% 30 ML SDV IJ ONE (13:30)
[2016-10-29 16:00] VITALS: BP 144/74
[2016-10-29] MEDS: CEFTAZIDIME 1 G in IV D5W 50 ML IV SCH (16:26)
--- NOTE | 2016-10-29 19:00 | NUR ---
RN INITIAL NOTES: RECEIVED PT, A/O X4, ON O2 VIA CA T 2LPM, TOLERATED WELL. NOT IN APPARENT DISTRESS. IV ACCESS ON RCW PORTACATH PATENT AND INTACT, FLUSHING WELL, WITH GOOD BLOOD RETURN, KEPT SL AT THIS TIME. WITH NOTED R ARM SWELLING, NOTICEABLY ON THE AV SHUNT AREA. HD PERFORMED TODAY W/ 5000 ML REMOVED. SAFETY MEASURES ENSURED AT ALL TIMES. CALL LIGHT WITHIN REACH. WILL CONTINUE TO MONITOR PT.
[2016-10-29 20:00] VITALS: BP 155/87
[2016-10-30] MEDS: HYDROMORPHONE 1 MG/1 ML DISP.SYRIN IV PRN ×5 (01:38→19:38)
[2016-10-30] MEDS: diphenhydrAMINE HCL 50 MG/ML VIAL IV PRN ×5 (01:39→19:43)
[2016-10-30] MEDS: IPRATROPIUM NEB FS 0.5 MG/2.5 ML AMPUL.NEB NEB SCH ×6 (03:10→22:48)
[2016-10-30] MEDS: ALBUTEROL FS 2.5 MG/3 ML VIAL.NEB NEB SCH ×6 (03:10→22:48)
[2016-10-30] MEDS: ZOLPIDEM TARTRATE 5 MG TABLET PO PRN ×2 (03:30→21:58)
[2016-10-30 04:00] VITALS: BP 143/76
[2016-10-30] MEDS ORDERED: IV NS 0.9% 250 ML IV ONE (05:22)
[2016-10-30] MEDS ORDERED: SECONDARY IV SET 1 EA INFUS.SET MC ONE (05:30)
[2016-10-30] MEDS ORDERED: IV SET PRIMARY PUMP SET 1 EA INFUS.SET MC ONE (05:30)
[2016-10-30 06:40] LABS: BASOPHILS # (AUTO) 0.1 /CMM (0.0-0.2); BASOPHILS % (AUTO) 0.5 % (0.0-2.0); EOSINOPHILS # (AUTO) 0.1 /CMM (0.0-0.7); EOSINOPHILS % (AUTO) 0.4 % (0.0-6.0); LYMPHOCYTES # (AUTO) 2.3 /CMM (0.8-4.8); LYMPHOCYTES % (AUTO) 17.4 % (20.0-44.0); MEAN CORPUSCULAR HEMOGLOBIN 30 PG (26.0-33.0); MEAN CORPUSCULAR HGB CONC 34 g/dl (31.0-36.0); MEAN CORPUSCULAR VOLUME 87 fL (80-96); MONOCYTES # (AUTO) 1.4 /CMM (0.1-1.30); MONOCYTES % (AUTO) 11.2 % (2.0-12.0); NEUTROPHILS # (AUTO) 9.1 /CMM (1.8-8.9); NEUTROPHILS % (AUTO) 70.5 % (43.0-81.0); RDW COEFFICIENT OF VARIATION 16.5 (11.5-15.0); RED BLOOD CELL COUNT(AUTO) 2.15 MIL/uL (4.5-6.0)
--- NOTE | 2016-10-30 06:43 | NUR ---
RN CLOSING NOTES: PT IS IN BED. DENIES PAIN. ON O2 THERAPY, RESTING AT THIS TIME. AM LABS DRAWN. CALL LIGHT WITHIN REACH. SAFETY MEASURES MAINTAINED. MD ORDERS FOLLOWED. WILL ENDORSED TO AM SHIFT.
--- NOTE | 2016-10-30 07:30 | NUR ---
initial note patient in bed, a+ox3. breathing even and unlabored with 2L NC o2. at this time patient removed NC, O2 sat 91%, instructed patient to keep on and plan to wean off as tolerated. patient states 8/10 lower ack pain. noted sacral dressing intact. RCW le cath has a tko NS @ 5ml/hr. dressing CDI. discussed plan of care. encouraged AROM. call light in reach.
[2016-10-30 07:38] LABS: HEMOGLOBIN 6.4 g/dL (13.5-17.5)
[2016-10-30 07:39] LABS: HEMATOCRIT 19 % (39-51); PLATELET COUNT (AUTO) 28 /CMM (150-450)
[2016-10-30 08:00] VITALS: BP 164/93
[2016-10-30 08:30] LABS: ANISOCYTOSIS 1+; BAND % (MANUAL) 1 % (0.0-5.0); EOSINOPHILS % (MANUAL) 1 % (0-4); LYMPHOCYTES % (MANUAL) 12 % (16-48); MONOCYTES % (MANUAL) 9 % (0-11.0); NEUTROPHILS % (MANUAL) 77 (42-76); PLATELET ESTIMATE DECREASED
[2016-10-30 08:31] LABS: HYPOCHROMASIA 1+; TARGET CELLS 1+
[2016-10-30] MEDS: SEVELAMER CARBONATE 800 MG TABLET PO SCH ×3 (08:32→16:25)
[2016-10-30] MEDS: SUCRALFATE 1 G TABLET PO SCH ×3 (08:32→16:25)
[2016-10-30] MEDS: AMLODIPINE BESYLATE 10 MG TABLET PO SCH (08:32)
[2016-10-30] MEDS: CINACALCET HCL 30 MG TABLET PO SCH (08:32)
[2016-10-30] MEDS: CARVEDILOL 12.5 MG TABLET PO SCH ×2 (08:33→21:57)
[2016-10-30] MEDS: FOLIC ACID 1 MG TABLET PO SCH (08:33)
[2016-10-30] MEDS: HYDROGEL DRESSING 90 GM TUBE TP SCH (08:34)
--- NOTE | 2016-10-30 12:30 | NUR ---
BONE MARROW ASPIRATION DONE BY ,PT. TOLERATED PROCEDURE.SPECIMEN BROUGHT TO LAB PATHOLOGY.
[2016-10-30] MEDS: CEFTAZIDIME 1 G in IV D5W 50 ML IV SCH (14:54)
[2016-10-30 16:00] VITALS: BP 140/83
[2016-10-30 16:14] VITALS: BP 140/83
--- NOTE | 2016-10-30 19:22 | NUR ---
closing note left patient in stable condition breathing and LOC WNL. removed o2 via NC per order. patient o2 sat 95% on room air. endorsed to warehouse supervisor 3rd shift to admin pain medication. provided wound care on sacrum and pressure bandage on BMB site due to scant bleeding. call light in reach.
--- NOTE | 2016-10-30 19:49 | NUR ---
MS1/RN RECEIVE PATIENT AWAKE, ALERT, ORIENTED, WITH C/O BACK PAIN 10/10 MEDICATED WITH DILAUDID ORDERED AND BENADRYL FOR ITCHING ORDERED. WILL MONITOR.
[2016-10-30 20:58] VITALS: BP 157/91
[2016-10-31] VITALS (10 sets, daily range): BP systolic 140–166; BP diastolic 81–102
[2016-10-31] MEDS: HYDROMORPHONE 1 MG/1 ML DISP.SYRIN IV PRN ×6 (00:05→20:50)
[2016-10-31] MEDS: diphenhydrAMINE HCL 50 MG/ML VIAL IV PRN ×6 (00:08→20:50)
[2016-10-31] MEDS: IPRATROPIUM NEB FS 0.5 MG/2.5 ML AMPUL.NEB NEB SCH ×6 (02:42→23:32)
[2016-10-31] MEDS: ALBUTEROL FS 2.5 MG/3 ML VIAL.NEB NEB SCH ×5 (02:42→23:32)
--- NOTE | 2016-10-31 06:40 | NUR ---
MS1/RN DOZING, APPEAR COMFORTABLE, NO DISTRESS NOTED, MEDICATED WITH DILAUDID IVFOR PAIN AND BENADRYL IV FOR ITCHING THE WHOLE SHIFT, ALL NEEDS ATTENDED AT THIS TIME, WILL CONTINUE TO MONITOR.
[2016-10-31 07:18] LABS: BASOPHILS # (AUTO) 0.1 /CMM (0.0-0.2); BASOPHILS % (AUTO) 0.5 % (0.0-2.0); EOSINOPHILS % (AUTO) 0.4 % (0.0-6.0); LYMPHOCYTES # (AUTO) 2.9 /CMM (0.8-4.8); LYMPHOCYTES % (AUTO) 24.9 % (20.0-44.0); MEAN CORPUSCULAR HEMOGLOBIN 30 PG (26.0-33.0); MEAN CORPUSCULAR HGB CONC 35 g/dl (31.0-36.0); MEAN CORPUSCULAR VOLUME 87 fL (80-96); MONOCYTES # (AUTO) 1.3 /CMM (0.1-1.30); MONOCYTES % (AUTO) 11.4 % (2.0-12.0); NEUTROPHILS # (AUTO) 7.4 /CMM (1.8-8.9); NEUTROPHILS % (AUTO) 62.8 % (43.0-81.0); RDW COEFFICIENT OF VARIATION 17.1 (11.5-15.0); WHITE BLOOD COUNT (AUTO) 11.8 K/uL (4.3-11.0)
[2016-10-31 07:43] LABS: HEMATOCRIT 17 % (39-51); HEMOGLOBIN 5.7 g/dL (13.5-17.5)
[2016-10-31 07:44] LABS: PLATELET COUNT (AUTO) 24 /CMM (150-450)
[2016-10-31] MEDS: HYDROGEL DRESSING 90 GM TUBE TP SCH (08:24)
[2016-10-31] MEDS: SEVELAMER CARBONATE 800 MG TABLET PO SCH ×3 (08:30→16:28)
[2016-10-31] MEDS: SUCRALFATE 1 G TABLET PO SCH ×3 (08:30→16:28)
[2016-10-31] MEDS: CINACALCET HCL 30 MG TABLET PO SCH (08:30)
[2016-10-31] MEDS: AMLODIPINE BESYLATE 10 MG TABLET PO SCH (08:30)
[2016-10-31] MEDS: FOLIC ACID 1 MG TABLET PO SCH (08:31)
[2016-10-31] MEDS: CARVEDILOL 12.5 MG TABLET PO SCH ×2 (08:31→21:00)
[2016-10-31 08:53] LABS: ANISOCYTOSIS 1+; LYMPHOCYTES % (MANUAL) 10 % (16-48); MONOCYTES % (MANUAL) 14 % (0-11.0); NEUTROPHILS % (MANUAL) 76 (42-76); PLATELET ESTIMATE DECREASED
[2016-10-31 08:54] LABS: HYPOCHROMASIA 1+
--- NOTE | 2016-10-31 09:00 | NUR ---
MS RN NOTE Pt AOx4, resting in bed. O2 90% on RA, put on 2L O2. Dilaudid for pain, benadryl for itching from dilaudid. Portacath patent. HD today with 2.7L out. Critical H/H of 5.7, and platelets of 24, MD aware, no active bleeding. Will cont to monitor. Addendum: 10/31/16 at 1206 by CHARLETTE BAKER RN JAX edematous.
[2016-10-31] MEDS: CEFTAZIDIME 1 G in IV D5W 50 ML IV SCH (15:42)
[2016-10-31] MEDS ORDERED: SECONDARY IV SET 1 EA INFUS.SET MC ONE (15:45)
[2016-10-31] MEDS ORDERED: BLOOD IV SET 1 EA INFUS.SET MC ONE (15:46)
--- NOTE | 2016-10-31 18:31 | NUR ---
MS RN NOTE 2 units RBC ordered, 2nd unit infusing now with no s/s distress or reaction, BP elevated. On 2L O2. Changed port dressing. Benadryl and dilaudid PRN for pain. PT held today d/t low H/H. Nose bleed x1. No BM today. Will endorse to next RN.
[2016-11-01] MEDS: diphenhydrAMINE HCL 50 MG/ML VIAL IV PRN ×4 (00:50→22:09)
[2016-11-01] MEDS: HYDROMORPHONE 1 MG/1 ML DISP.SYRIN IV PRN ×6 (00:51→22:03)
[2016-11-01] MEDS: IPRATROPIUM NEB FS 0.5 MG/2.5 ML AMPUL.NEB NEB SCH ×6 (03:30→19:30)
[2016-11-01] MEDS: ALBUTEROL FS 2.5 MG/3 ML VIAL.NEB NEB SCH ×6 (03:30→19:30)
[2016-11-01 04:00] VITALS: BP 142/83
--- NOTE | 2016-11-01 07:05 | NUR ---
RN NOTES PT REMAINED IN STABLE CONDITION NEEDS ATTENDED. NO ASE FROM S/P BLOOD TRANSFUSION AFEBRILE. VS STABLE. PAIN MEDICINE GIVEN ORDERED. NO SIGNIFICANT CHANGES WILL ENDORSED CONTINUITY OF CARE TO AM NURSE.
[2016-11-01 07:48] LABS: EOSINOPHILS # (AUTO) 0.1 /CMM (0.0-0.7); EOSINOPHILS % (AUTO) 0.9 % (0.0-6.0); LYMPHOCYTES % (AUTO) 26.7 % (20.0-44.0); MEAN CORPUSCULAR HEMOGLOBIN 30 PG (26.0-33.0); MEAN CORPUSCULAR HGB CONC 34 g/dl (31.0-36.0); MEAN CORPUSCULAR VOLUME 87 fL (80-96); MONOCYTES # (AUTO) 1.3 /CMM (0.1-1.30); NEUTROPHILS # (AUTO) 6.8 /CMM (1.8-8.9); NEUTROPHILS % (AUTO) 60.4 % (43.0-81.0); WHITE BLOOD COUNT (AUTO) 11.2 K/uL (4.3-11.0)
[2016-11-01 07:53] LABS: HEMATOCRIT 20 % (39-51); HEMOGLOBIN 6.8 g/dL (13.5-17.5); PLATELET COUNT (AUTO) 36 /CMM (150-450)
--- NOTE | 2016-11-01 07:59 | NUR ---
MS RN NOTES RECEIVED A CALL THAT PATIENT H&H IS 6.8 & 20. PLT 36. PATIENT RECEIVED TWO UNITS OF PRBC YESTERDAY WITH DIALYSIS. WILL INFORM MD OF CHANGES.
[2016-11-01 08:00] VITALS: BP 155/89
[2016-11-01] MEDS: HYDROGEL DRESSING 90 GM TUBE TP SCH (08:03)
[2016-11-01] MEDS: CARVEDILOL 12.5 MG TABLET PO SCH ×2 (08:04→22:02)
[2016-11-01] MEDS: SUCRALFATE 1 G TABLET PO SCH ×3 (08:04→16:10)
[2016-11-01] MEDS: SEVELAMER CARBONATE 800 MG TABLET PO SCH ×3 (08:04→16:10)
[2016-11-01] MEDS: FOLIC ACID 1 MG TABLET PO SCH (08:04)
[2016-11-01] MEDS: AMLODIPINE BESYLATE 10 MG TABLET PO SCH (08:04)
[2016-11-01] MEDS: CINACALCET HCL 30 MG TABLET PO SCH (08:04)
[2016-11-01 08:19] LABS: ANISOCYTOSIS 1+; BAND % (MANUAL) 2 % (0.0-5.0); EOSINOPHILS % (MANUAL) 11 % (0-4); LYMPHOCYTES % (MANUAL) 26 % (16-48); MONOCYTES % (MANUAL) 10 % (0-11.0); NEUTROPHILS % (MANUAL) 51 (42-76); PLATELET ESTIMATE DECREASED
--- NOTE | 2016-11-01 09:40 | NUR ---
MS RN NOTES MD IS OK WITH TODAY'S H&H IT IS BACK TO THE PATIENT'S BASELINE. STATES THAT WE WILL CHECK THE LEVEL AGAIN IN THE MORNING AND TRANSFUSE THEN IF NEEDED.
[2016-11-01] MEDS: CEFTAZIDIME 1 G in IV D5W 50 ML IV SCH (14:58)
[2016-11-01 16:00] VITALS: BP 146/88
--- NOTE | 2016-11-01 18:32 | NUR ---
MS RN CLOSING NOTES NO SIGNIFICANT CHANGES IN PATIENT CONDITION THROUGHOUT THE SHIFT. NO SOB OR DISTRESS NOTED AT THIS TIME. PATIENT REPORTS TOLERABLE PAIN. BED IN A LOW POSITION, CALL LIGHT WITHIN PATIENT REACH. WILL ENDORSE FOR CM.
--- NOTE | 2016-11-01 19:30 | NUR ---
MS RN INITIAL NOTE PT RECEIVED SITTING IN BED. A/O X4 AND ABLE TO MAKE NEEDS KNOWN. ON ROOM AIR AND SATING WELL. RCW BLANCA CATH CLEAN AND INTACT. JAX HD ACCESS CLEAN AND INTACT. ALL SAFETY MEASURES IN PLACE. CALL LIGHT WITHIN REACH AT ALL TIMES. WILL CONTINUE TO MONITOR.
[2016-11-01 20:00] VITALS: BP 159/44
--- NOTE | 2016-11-01 21:16 | NUR ---
RT PT NOT AVAILABLE DURING 193 TX
[2016-11-02] MEDS: IPRATROPIUM NEB FS 0.5 MG/2.5 ML AMPUL.NEB NEB SCH ×5 (00:17→15:11)
[2016-11-02] MEDS: ALBUTEROL FS 2.5 MG/3 ML VIAL.NEB NEB SCH ×5 (00:18→15:12)
[2016-11-02] MEDS: diphenhydrAMINE HCL 50 MG/ML VIAL IV PRN ×4 (02:07→18:34)
[2016-11-02] MEDS: HYDROMORPHONE 1 MG/1 ML DISP.SYRIN IV PRN ×4 (02:07→18:33)
[2016-11-02 04:00] VITALS: BP 159/96
[2016-11-02 06:35] LABS: BASOPHILS # (AUTO) 0.1 /CMM (0.0-0.2); BASOPHILS % (AUTO) 0.4 % (0.0-2.0); EOSINOPHILS # (AUTO) 0.1 /CMM (0.0-0.7); EOSINOPHILS % (AUTO) 0.9 % (0.0-6.0); HEMATOCRIT 21 % (39-51); LYMPHOCYTES # (AUTO) 2.7 /CMM (0.8-4.8); LYMPHOCYTES % (AUTO) 21.3 % (20.0-44.0); MEAN CORPUSCULAR HEMOGLOBIN 30 PG (26.0-33.0); MEAN CORPUSCULAR HGB CONC 34 g/dl (31.0-36.0); MEAN CORPUSCULAR VOLUME 88 fL (80-96); MONOCYTES # (AUTO) 1.5 /CMM (0.1-1.30); MONOCYTES % (AUTO) 11.7 % (2.0-12.0); NEUTROPHILS # (AUTO) 8.2 /CMM (1.8-8.9); NEUTROPHILS % (AUTO) 65.7 % (43.0-81.0); RDW COEFFICIENT OF VARIATION 16.4 (11.5-15.0); RED BLOOD CELL COUNT(AUTO) 2.37 MIL/uL (4.5-6.0); WHITE BLOOD COUNT (AUTO) 12.4 K/uL (4.3-11.0)
[2016-11-02 06:40] LABS: PLATELET COUNT (AUTO) 35 /CMM (150-450)
--- NOTE | 2016-11-02 06:40 | NUR ---
MS RN CLOSING NOTE PT REMAINED STABLE DURING SHIFT. ALL NEEDS ATTENDED TO PROMPTLY. ALL SAFETY MEASURES IN PLACE. RECEIVED CRITICAL LAB RESULTS OF HEMOGLOBIN 7.0 AND PLT 35,000. WILL RELAY RESULTS AND CM TO NEXT SHIFT.
[2016-11-02 07:42] LABS: ANISOCYTOSIS 1+; BASOPHILS % (MANUAL) 0 % (0.0-2.0); EOSINOPHILS % (MANUAL) 0 % (0-4); LYMPHOCYTES % (MANUAL) 19 % (16-48); MONOCYTES % (MANUAL) 4 % (0-11.0); NEUTROPHILS % (MANUAL) 77 (42-76); PLATELET ESTIMATE DECREASED; TARGET CELLS 1+
[2016-11-02 08:00] VITALS: BP_SYST 104; BP_SYST 164; BP_DIAS 57; BP_DIAS 95
[2016-11-02] MEDS: HYDROGEL DRESSING 90 GM TUBE TP SCH (08:42)
[2016-11-02] MEDS: SUCRALFATE 1 G TABLET PO SCH ×3 (08:43→16:39)
[2016-11-02] MEDS: SEVELAMER CARBONATE 800 MG TABLET PO SCH ×3 (08:43→16:39)
[2016-11-02] MEDS: CINACALCET HCL 30 MG TABLET PO SCH (08:43)
[2016-11-02] MEDS: FOLIC ACID 1 MG TABLET PO SCH (08:43)
--- NOTE | 2016-11-02 08:44 | NUR ---
RN NOTES REBEKAH HD NURSE AT BEDSIDE, ONGOING HD. PT IS AWAKE ALERT ORIENTED X3, WATCHING TV AT THIS TIME. NO ACUTE DISTRESS NOTED. KEPT COMFORTABLE. WILL CONT TO MONITOR. SAFETY MAINTAINED, CALL LIGHT WITHIN REACH.
[2016-11-02 08:57] LABS: CALCIUM, SERUM 7.2 mg/dL (8.5-10.1); CREATININE 6.6 mg/dL (0.6-1.3); POTASSIUM 5.2 mmol/L (3.5-5.1)
[2016-11-02] MEDS: AMLODIPINE BESYLATE 10 MG TABLET PO SCH (10:50)
[2016-11-02] MEDS: CARVEDILOL 12.5 MG TABLET PO SCH (10:51)
[2016-11-02] MEDS: CEFTAZIDIME 1 G in IV D5W 50 ML IV SCH (14:29)
[2016-11-02] MEDS ORDERED: SECONDARY IV SET 1 EA INFUS.SET MC ONE (14:34)
[2016-11-02 16:00] VITALS: BP 159/93
--- NOTE | 2016-11-02 18:55 | NUR ---
RN NOTES PT DISCHARGED FROM UNIT IN STABLE CONDITION, VS WNL. PT TRANSPORTED VIA [facility] CAB TO HOME, ASSISTED PT VIA W/C TO LOBBY BY JESSICA. ALL DISCHARGE INSTRUCTIONS GIVEN, EXITCARE PROVIDED. ALL PAPERWORK SIGNED BY PT, REMINDED OF HD SCHEDULED. PT VERBALIZED UNDERSTANDING. PAPERWORKS PROVIDED TO PT. ID BAND REMOVED, BLANCA CATH EXTENSION REMOVED, COVERED WITH DRY DRESSING. VS WNL.
== END 2016-11-02 18:50 | disposition home health service (06) | DRG 871 ==
LOC: ER 23:26 → ICU 10-14 01:24 → TELE-TD 10-15 19:43 → TELE1 10-16 08:39 → MEDSG1 10-19 08:31
PROVIDERS: ADMIT Internal Medicine; ATTEND Internal Medicine Nephrology
PROC: 5A1D60Z (ICD-10-PCS; principal; 2016-10-15)
PROC: 30233N1 Transfusion of Nonautologous Red Blood Cells into Peripheral Vein, Percutaneous Approach (ICD-10-PCS; 2016-10-19)
PROC: 30233R1 Transfusion of Nonautologous Platelets into Peripheral Vein, Percutaneous Approach (ICD-10-PCS; 2016-10-20)
DX: A41.9 Sepsis, unspecified organism (principal); N18.6 End stage renal disease; J15.0 Pneumonia due to Klebsiella pneumoniae; I50.33 Acute on chronic diastolic (congestive) heart failure; J86.9 Pyothorax without fistula; I21.4 Non-ST elevation (NSTEMI) myocardial infarction; J96.91 Respiratory failure, unspecified with hypoxia; I13.2 Hypertensive heart and chronic kidney disease with heart failure and with stage 5 chronic kidney disease, or end stage renal disease; J98.11 Atelectasis; I82.611 Acute embolism and thrombosis of superficial veins of right upper extremity; D69.6 Thrombocytopenia, unspecified; D57.1 Sickle-cell disease without crisis; E87.5 Hyperkalemia; Z99.2 Dependence on renal dialysis; E78.5 Hyperlipidemia, unspecified; G89.4 Chronic pain syndrome; I25.2 Old myocardial infarction; N28.89 Other specified disorders of kidney and ureter; I27.2 Other secondary pulmonary hypertension; T38.0X5A Adverse effect of glucocorticoids and synthetic analogues, initial encounter; Z79.2 Long term (current) use of antibiotics; Z87.891 Personal history of nicotine dependence
CPT/HCPCS: 36415; 71010-TC; 71250-TC; 76700-TC; 76942-TC; 80048-TC; 80053-TC; 80076-TC; 83605-TC; 83735-TC; 84100-TC; 84484-TC; 85025-TC; 85396; 85730-TC; 86850-TC; 86921-TC; 87040-TC; 87070-TC; 87081-TC; 90935-TC; 93307-TC; 93971-TC; 94640-TC; 94799-TC; 97001-TC; 97116-TC; 97530-TC; A4216; A4606; A6248; A6402; A6403; J0713; J0885; J0895; J1170; J1200; J1956; J2405; J2543; J3370; J3490; J7040; J7050; J7060; P9016-BL; P9034-BL; Q0163; Z7610

== ENCOUNTER 2016-11-06 19:52 | Inpatient (IN) | payer MEDICAID, MEDICARE ==
[~2016-11-06] VITALS: Ht 165.1 cm; Wt 82.6 kg
[~2016-11-06 19:52] MED LIST changes: +MINO2.5T PO; +OMEP20CA10 PO; +SEVE800T8 PO; +SUCR1TAB PO; +VALS320T2 PO
--- NOTE | 2016-11-06 20:02 | NUR ---
PT BIB RA WITH A C/O SOB. PT HAS BILATERAL CRACKLES. DR. BRINK IS AT THE BEDSIDE. PT IS ON THE MONITOR AND CONTINUOUS PULSE OX. RESP SLIGHTLY LABORED. PT IS ON NRB MASK AT 15L SAT AT 100%. RT STANDING BY. DR. BRINK WANTS PT ON BIPAP.
[2016-11-06 20:04] VITALS: BP 104/98
--- NOTE | 2016-11-06 20:10 | NUR ---
PT IS ON BIPAP 15/5, FIO2 30%. RT 24
--- NOTE | 2016-11-06 20:17 | NUR ---
[facility] PORT ACCESSED BY FLOWER BONILLA. BLOOD DRAWN AND BLOOD CULTURES X2 DRAWN.
[2016-11-06 20:27] LABS: BASOPHILS # (AUTO) 0.1 /CMM (0.0-0.2); BASOPHILS % (AUTO) 0.7 % (0.0-2.0); EOSINOPHILS # (AUTO) 0.1 /CMM (0.0-0.7); EOSINOPHILS % (AUTO) 1.1 % (0.0-6.0); LYMPHOCYTES # (AUTO) 2.8 /CMM (0.8-4.8); LYMPHOCYTES % (AUTO) 25.6 % (20.0-44.0); MEAN CORPUSCULAR HEMOGLOBIN 31 PG (26.0-33.0); MEAN CORPUSCULAR HGB CONC 35 g/dl (31.0-36.0); MEAN CORPUSCULAR VOLUME 87 fL (80-96); MONOCYTES # (AUTO) 1.3 /CMM (0.1-1.30); MONOCYTES % (AUTO) 11.8 % (2.0-12.0); NEUTROPHILS # (AUTO) 6.7 /CMM (1.8-8.9); NEUTROPHILS % (AUTO) 60.8 % (43.0-81.0); RDW COEFFICIENT OF VARIATION 16.4 (11.5-15.0)
[2016-11-06 20:29] LABS: HEMOGLOBIN 5.5 g/dL (13.5-17.5)
[2016-11-06 20:30] LABS: HEMATOCRIT 16 % (39-51); PLATELET COUNT (AUTO) 40 /CMM (150-450)
[2016-11-06 20:38] LABS: ALBUMIN 1.9 g/dL (3.4-5.0); BILIRUBIN,TOTAL 1.4 mg/dL (0.2-1.0); CALCIUM, SERUM 7.1 mg/dL (8.5-10.1); POTASSIUM 5.3 mmol/L (3.5-5.1)
[2016-11-06 20:40] LABS: TROPONIN I 0.032 ng/mL (0.00-0.056)
[2016-11-06 20:43] LABS: CREATININE 8.8 mg/dL (0.6-1.3); INR 1.11 (0.87-1.13)
[2016-11-06 20:45] LABS: LACTIC ACID 1.5 mmol/L (0.4-2.0)
--- NOTE | 2016-11-06 21:03 | NUR ---
Angie worrell in [facility] - 11/06/16 at 2103 by JUNIOR RT IS AT THE BEDSIDE FOR BLOOD DRAW.
--- NOTE | 2016-11-06 21:03 | NUR ---
RT IS AT THE BEDSIDE FOR ABG. DR. BRINK IS AWARE.
--- NOTE | 2016-11-06 21:04 | NUR ---
PAGED , MATLAB DEVELOPER FOR
[2016-11-06 21:09] VITALS: BP 183/99
[2016-11-06 21:10] LABS: ABG BASE EXCESS 1.9 mmol/L; ABG OXYGEN SATURATION 96.7 % (92.0-98.5); ABG PCO2 45.7 mmHg (35.0-45.0); ABG PO2 107.6 mmHg (75.0-100.0); ABG TOTAL HEMOGLOBIN 5.5 G/dL (13.5-18.0); AaDO2 52.6 mmHg; COHb 3.5 % (0.5-1.5); MetHb 0.7 % (0.0-1.5); O2Hb 92.6 % (94.0-97.0); SITE, ABG Left Radial; VENT MODE, BG S/T 12 15/5 30%
[2016-11-06] MEDS ORDERED: HYDROMORPHONE 1 MG/1 ML DISP.SYRIN ONE (21:12)
[2016-11-06] MEDS ORDERED: IV D5W 50 ML IV ONE (21:12)
[2016-11-06] MEDS ORDERED: IV SET PRIMARY PUMP SET 1 EA INFUS.SET MC ONE (21:13)
--- NOTE | 2016-11-06 21:13 | NUR ---
CALLED NURSING SUP. FOR [facility] BED
--- NOTE | 2016-11-06 21:18 | NUR ---
HD NURSE CALLED AND WILL CALL BACK TO FIND OUT [facility] ROOM NUMBER.
--- NOTE | 2016-11-06 21:19 | NUR ---
CONSENT FOR BLOOD TRANSFUSION IN THE CHART.
--- NOTE | 2016-11-06 21:20 | NUR ---
BI-PAP REMOVED AND PT IS NOW ON 4L O2 VIA NC. PT IS SATURATING AT 100%.
[2016-11-06] MEDS ORDERED: HYDROMORPHONE MDV 1 MG in IV D5W 50 ML IV PRN (21:30)
[2016-11-06] MEDS ORDERED: HYDROMORPHONE 1 MG/1 ML DISP.SYRIN IV ONE (21:30)
--- NOTE | 2016-11-06 21:30 | NUR ---
PT C/O FEELING ITCHY. DR. BRINK NOTIFIED. PT ALSO REQUESTED A CUP OF ICE CHIPS. ICE CHIPS OK'D BY DR. BRINK.
[2016-11-06 21:32] LABS: BAND % (MANUAL) 2 % (0.0-5.0); LYMPHOCYTES % (MANUAL) 24 % (16-48); MONOCYTES % (MANUAL) 8 % (0-11.0); NEUTROPHILS % (MANUAL) 80 (42-76)
--- NOTE | 2016-11-06 21:33 | NUR ---
PT REC'D A CUP OF ICE CHIPS. VSS.
[2016-11-06] MEDS ORDERED: diphenhydrAMINE HCL 50 MG/ML VIAL ONE ×2 (21:34→22:52)
--- NOTE | 2016-11-06 21:39 | NUR ---
PT REC'D ANOTHER CUP OF ICE CHIPS.
--- NOTE | 2016-11-06 21:39 | NUR ---
WILL CALL BACK [facility] NURSE IN 10 MINS.
--- NOTE | 2016-11-06 21:39 | NUR ---
CALLING REPORT TO [facility] NURSE.
--- NOTE | 2016-11-06 21:49 | NUR ---
CALLING REPORT TO [facility] NURSE.
--- NOTE | 2016-11-06 21:53 | NUR ---
REPORT GIVEN TO FLOWER FLOYD
[2016-11-06] MEDS ORDERED: diphenhydrAMINE HCL 50 MG/ML VIAL IV ONE (22:00)
[2016-11-06 22:10] VITALS: BP 162/94
--- NOTE | 2016-11-06 22:40 | NUR ---
RN NOTES 2200 PM - ADMITTED A 46 YEARS OLD MALE FROM ER VIA STRETCHER AOX 3 ABLE TO MAKE KNOWN NEEDS. UNDER THE CARE OF DR. MOYA. DUE TO SOB DIAGNOSED WITH CHF WITH HX. OF HTN, SASHA. HIP REPLACEMENT, ESRD WITH HD AND CHF. NKA NO ACUTE RESP DISTRESS ON O2 4LPM VIA NC. AFEBRILE. PLACED ON TELE MONITOR THAT REVEALS SR HR 90. WITH JAX FISTULA FOR DIALYSIS AND RCW LBANCA CATH INTACT AND PATENT. WITH GOOD BLOOD RETURN. ABLE TO DO B&B IN THE BATHROOM AND USED URINAL WHILE ON BED. SKIN ASSESSMENT DONE PHOTO TAKEN. BED BATH RENDERED. CALLED AND SPOKE WITH DR MOYA AND VERIFIED ORDERS WITH ORDERS NOTED AND CARRIED OUT. 2 UNITS OF PRBC WILL START DURING DIALYSIS. KEPT PT CLEAN AND DRY WILL CONTINUE TO MONITOR.
[2016-11-06] MEDS ORDERED: HYDROMORPHONE INJ 2 MG/ML DISP.SYRIN ONE (22:52)
[2016-11-06] MEDS ORDERED: BLOOD IV SET 1 EA INFUS.SET MC ONE (23:04)
[2016-11-06 23:05] VITALS: BP 167/92
--- NOTE | 2016-11-06 23:10 | NUR ---
RN NOTES DIALYSIS STARTED AT THIS TIME. BLOOD TRANSFUSION GIVEN TO START. TEMP 97.9 RESP 20 PULSE 83 BP 159/ 94 PAIN MEDICINE AND BENADRYL WILL GIVE PT REQUESTED DUE TO PAIN.
[2016-11-06 23:20] VITALS: BP 159/94
[2016-11-06 23:50] VITALS: BP 162/92
[2016-11-06] MEDS: HYDROMORPHONE INJ 2 MG/ML DISP.SYRIN IV PRN (23:58)
[2016-11-06] MEDS: diphenhydrAMINE HCL 50 MG/ML VIAL IV PRN (23:59)
[2016-11-07] VITALS (11 sets, daily range): BP systolic 129–167; BP diastolic 75–98
--- NOTE | 2016-11-07 01:02 | NUR ---
RN NOTES DIALYSIS FINISH WELL BLOOD TRANSFUSION OF 2 UNITS PRBC . REMOVED 1.5 LITERS. PT ASLEEP EASILY AROUSABLE, PAIN WENT DOWN FROM 8/10 SCALE TO 3/10 SCALE. NO DIZZINESS, NO ASE NOTED. LAST BP WAS 167/87 RESP 21 PULSE 78 TEMP 98 JAX DIALYSIS SITE INTACT AND PATENT BLEEDING AT FIRST PRESSURE DRESSING IN PLACED BY DIALYSIS NURSE. NO SIGNIFICANT CHANGES NOTED. PT BACK TO SLEEP WITH SATURATION 98%. WILL CONTINUE TO MONITOR.
[2016-11-07] MEDS ORDERED: HYDROMORPHONE INJ 2 MG/ML DISP.SYRIN ONE (04:03)
[2016-11-07] MEDS ORDERED: diphenhydrAMINE HCL 50 MG/ML VIAL ONE (04:03)
[2016-11-07] MEDS: diphenhydrAMINE HCL 50 MG/ML VIAL IV PRN ×3 (04:11→20:19)
[2016-11-07] MEDS: HYDROMORPHONE INJ 2 MG/ML DISP.SYRIN IV PRN ×4 (04:11→20:19)
[2016-11-07 07:08] LABS: BASOPHILS # (AUTO) 0.1 /CMM (0.0-0.2); BASOPHILS % (AUTO) 0.5 % (0.0-2.0); EOSINOPHILS # (AUTO) 0.2 /CMM (0.0-0.7); EOSINOPHILS % (AUTO) 1.4 % (0.0-6.0); LYMPHOCYTES % (AUTO) 26.8 % (20.0-44.0); MEAN CORPUSCULAR HEMOGLOBIN 30 PG (26.0-33.0); MEAN CORPUSCULAR HGB CONC 35 g/dl (31.0-36.0); MEAN CORPUSCULAR VOLUME 86 fL (80-96); MONOCYTES # (AUTO) 1.5 /CMM (0.1-1.30); MONOCYTES % (AUTO) 13.6 % (2.0-12.0); NEUTROPHILS # (AUTO) 6.4 /CMM (1.8-8.9); NEUTROPHILS % (AUTO) 57.7 % (43.0-81.0); RDW COEFFICIENT OF VARIATION 16.4 (11.5-15.0); RED BLOOD CELL COUNT(AUTO) 2.14 MIL/uL (4.5-6.0); WHITE BLOOD COUNT (AUTO) 11.1 K/uL (4.3-11.0)
[2016-11-07 07:12] LABS: HEMATOCRIT 18 % (39-51); HEMOGLOBIN 6.4 g/dL (13.5-17.5); PLATELET COUNT (AUTO) 46 /CMM (150-450)
--- NOTE | 2016-11-07 07:13 | NUR ---
RN NOTES PT ASLEEP WELL ON BED. NO ACUTE RESP DISTRESS TOLERATED O2 4LPM VIA NC. NOTED WITH HIGH BLOOD PRESSURE DUE TO PAIN AT HIS BACK PER PATIENT. PAIN MEDICINE REMAINED EFFECTIVE. NO ACTIVE BLEEDING NOTED. DIALYSIS TOLERATED WELL. LAB CALLED INFORMED REGARDING HGB=6.4 AND PLATELETS 46 SPOKE TO [facility]. ENDORSED TO AM NURSE FOR CONTINUITY OF CARE
--- NOTE | 2016-11-07 07:27 | NUR ---
GLASS PULVERIZER EQUIPMENT OPERATOR RECEIVED PT IN BED AOX4, VS STABLE ELEVATED BP, CRITICAL LABS REPORT RECEIVED LOW PLATELETS AND HEMOGLOBIN CALLED DR. BELINDA SUMMERS BEING PAGED AT THIS TIME AWAITING FOR CALL BACK, PT COMPLAINS OF PAIN, RUP AF FISTULA WRAPPED WITH PRESSURE DRESSING PT HAD SCANT BLEEDING AT NIGHT NO BLEEDING NOTED AT THIS TIME, IV ACCESS PATENT HEP LOCK, PT IS ON 2L NC O2 SAT STABLE DENIES OF ANY RESPIRATORY DISTRESS NOTED AT THIS TIME, PT IS HR 75 BPM WITH 1ST DEGREE AV BLOCK, FALL PRECAUTIONS TAKEN CALL LIGHT W/ IN REACH BED ALARM ON WILL CONTINUE TO MONITOR.
[2016-11-07 08:18] LABS: MAGNESIUM 2.3 mg/dL (1.8-2.4); PHOSPHORUS 3.3 mg/dL (2.5-4.9)
[2016-11-07] MEDS ORDERED: CLONIDINE HCL 0.2 MG TABLET PO SCH (09:00)
[2016-11-07] MEDS ORDERED: MORPHINE SULFATE SR 30 MG TABLET.SA PO PRN (09:00)
[2016-11-07 09:24] LABS: ANISOCYTOSIS 1+; EOSINOPHILS % (MANUAL) 1 % (0-4); NEUTROPHILS % (MANUAL) 51 (42-76); PLATELET ESTIMATE DECREASED
[2016-11-07 09:27] LABS: LYMPHOCYTES % (MANUAL) 34 % (16-48); MONOCYTES % (MANUAL) 14 % (0-11.0)
[2016-11-07] MEDS: FOLIC ACID 1 MG TABLET PO SCH (09:48)
[2016-11-07] MEDS: MINOXIDIL (2.5MG) 2.5 MG TABLET PO SCH ×2 (09:49→16:52)
[2016-11-07] MEDS: CARVEDILOL 6.25 MG TABLET PO SCH ×2 (09:49→20:19)
[2016-11-07] MEDS: SUCRALFATE 1 G TABLET PO SCH ×3 (09:49→16:52)
[2016-11-07] MEDS: AMLODIPINE BESYLATE 10 MG TABLET PO SCH (09:49)
[2016-11-07] MEDS: PANTOPRAZOLE 40 MG TABLET.DR PO SCH (09:49)
[2016-11-07] MEDS: BENAZEPRIL HCL 20 MG TABLET PO SCH (09:50)
[2016-11-07] MEDS ORDERED: CLONIDINE HCL 0.1 MG TABLET ONE (09:52)
[2016-11-07] MEDS: VALSARTAN 80 MG TABLET PO SCH (09:57)
[2016-11-07] MEDS ORDERED: CEFTAZIDIME 1 G in IV D5W 50 ML IV SCH (13:00)
[2016-11-07] MEDS ORDERED: D5W IV ONE (13:00)
[2016-11-07] MEDS ORDERED: DEFEROXAMINE IV ONE (13:00)
--- NOTE | 2016-11-07 14:00 | NUR ---
agricultural produce sorter pt started on hemodialysis vs stable no changes in pt condition 1prbc ordered with hd, hd nurse will administer with hd.
[2016-11-07] MEDS ORDERED: BLOOD IV SET 1 EA INFUS.SET MC ONE (14:11)
[2016-11-07] MEDS ORDERED: IV NS 0.9% 250 ML IV ONE (14:20)
[2016-11-07] MEDS ORDERED: IV SET PRIMARY PUMP SET 1 EA INFUS.SET MC ONE ×2 (14:20→16:37)
[2016-11-07] MEDS ORDERED: SECONDARY IV SET 1 EA INFUS.SET MC ONE (14:20)
[2016-11-07] MEDS: CEFTAZIDIME 1 G in IV D5W 50 ML IV SCH (14:29)
[2016-11-07] MEDS: SEVELAMER CARBONATE 800 MG TABLET PO SCH ×2 (14:29→16:52)
[2016-11-07] MEDS: CLONIDINE HCL 0.1 MG TABLET PO SCH (16:52)
--- NOTE | 2016-11-07 19:20 | NUR ---
RN NOTES RECEIVED PT AOX3 NO ACUTE RESP DISTRESS. O2 4LPM VIA NC TOLERATED WELL. SATING 97% WITH SR FIRST DEGREE WITH BBB HR 74 NO CHEST PAIN. WITH PAIN AT SCALE OF5/10 AT THIS TIME MADE AWARE REGARDING HIS PAIN MEDICINE. JAX AV SHUNT INTACT NO ACTIVE BLEEDING NOTED AT THIS TIME. RIGHT CHEST BLANCA CATH RUNNING WITH DESFERAL @ 6CC/HR INTACT AND PATENT. KEPT PT CLEAN AND COMFORTABLE IN BED. TAXICAB STARTER AT BEDSIDE STARTED US FOR BLE AND JAX. PT INSTABLE CONDITION AT THIS TIME.
--- NOTE | 2016-11-07 22:00 | NUR ---
RN NOTES: CLARIFIED WITH DR THOMAS RE ORDER FOR RU US DOPPLER; MD WANTS TO PROCEED DESPITE IT HAVING BEEN DONE ON 10/28/2106. MD WOULD WANT TO KNOW IF DVT IS PROGRESSING. NOTED AND US TECH MARINE AND PRIMARY RN DANIELLE AWARE.
[2016-11-08] VITALS (8 sets, daily range): BP systolic 128–139; BP diastolic 75–89
[2016-11-08] MEDS: diphenhydrAMINE HCL 50 MG/ML VIAL IV PRN ×6 (00:38→21:28)
[2016-11-08] MEDS: HYDROMORPHONE INJ 2 MG/ML DISP.SYRIN IV PRN ×6 (00:38→21:28)
--- NOTE | 2016-11-08 07:15 | NUR ---
RN NOTES PT REMAINED INSTABLE CONDITION. NO ACTIVE BLEEDING NOTED. AFEBRILE. VS CONTROLLED WITH MEDICINE PAIN MEDICINE EFFECTIVE AFTER 30 MINUTES. ALL NEEDS ATTENDED. CALL LIGHT KEPT WITHIN EASY REACH. ENDORSED CONTINUITY OF CARE TO AM NURSE.
--- NOTE | 2016-11-08 07:20 | NUR ---
RN INITIAL NOTES RECEIVED PT IN BED, ABLE TO MAKE NEEDS KNOWN, PT IS ON 4L NC, NO S/S OF RESP. DISTRESS OR SOB NOTED AT THIS TIME, PT IS ON TELE MONITOR SHOWING SR W/BBB 80 BPM, NO C/O DISCOMFORT OR PAIN AT THIS TIME, PT IS NOTED WITH MULTIPLE SKIN ISSUES, PT HAS RCW BLANCA CATH,SL, C/D/I/PATENT, FLUSHING WELL, NO S/S OF INFECTION/ INFILTRATION NOTED AT THIS TIME, JAX FISTULA, DRESSING INTACT, CLEAN AND DRY, ALL SAFETY MEASURES IN PLACE AT ALL TIMES, CALL LIGHT WITHIN EASY REACH, WILL MONITOR PT CLOSELY FOR CHANGES
[2016-11-08 07:49] LABS: BASOPHILS % (AUTO) 0.4 % (0.0-2.0); EOSINOPHILS # (AUTO) 0.2 /CMM (0.0-0.7); HEMATOCRIT 21 % (39-51); HEMOGLOBIN 7.4 g/dL (13.5-17.5); LYMPHOCYTES # (AUTO) 2.5 /CMM (0.8-4.8); LYMPHOCYTES % (AUTO) 26.7 % (20.0-44.0); MEAN CORPUSCULAR HEMOGLOBIN 30 PG (26.0-33.0); MEAN CORPUSCULAR HGB CONC 35 g/dl (31.0-36.0); MEAN CORPUSCULAR VOLUME 87 fL (80-96); MONOCYTES # (AUTO) 1.6 /CMM (0.1-1.30); MONOCYTES % (AUTO) 16.8 % (2.0-12.0); NEUTROPHILS # (AUTO) 5.1 /CMM (1.8-8.9); NEUTROPHILS % (AUTO) 54.1 % (43.0-81.0); RDW COEFFICIENT OF VARIATION 16.3 (11.5-15.0); RED BLOOD CELL COUNT(AUTO) 2.45 MIL/uL (4.5-6.0); WHITE BLOOD COUNT (AUTO) 9.4 K/uL (4.3-11.0)
[2016-11-08 08:04] LABS: PLATELET COUNT (AUTO) 40 /CMM (150-450)
[2016-11-08 08:42] LABS: BAND % (MANUAL) 2 % (0.0-5.0); LYMPHOCYTES % (MANUAL) 16 % (16-48); MONOCYTES % (MANUAL) 10 % (0-11.0); NEUTROPHILS % (MANUAL) 69 (42-76); REACTIVE LYMPHOCYTES 3 % (0-0)
[2016-11-08 08:43] LABS: ANISOCYTOSIS 1+; HYPOCHROMASIA 1+; PLATELET ESTIMATE DECREASED
[2016-11-08] MEDS: SUCRALFATE 1 G TABLET PO SCH ×3 (08:49→16:42)
[2016-11-08] MEDS: MINOXIDIL (2.5MG) 2.5 MG TABLET PO SCH ×2 (08:49→16:44)
[2016-11-08] MEDS: PANTOPRAZOLE 40 MG TABLET.DR PO SCH (08:49)
[2016-11-08] MEDS: SEVELAMER CARBONATE 800 MG TABLET PO SCH ×3 (08:49→17:16)
[2016-11-08] MEDS: FOLIC ACID 1 MG TABLET PO SCH (08:50)
[2016-11-08] MEDS: CARVEDILOL 6.25 MG TABLET PO SCH ×2 (08:50→21:33)
[2016-11-08] MEDS: BENAZEPRIL HCL 20 MG TABLET PO SCH (08:50)
[2016-11-08] MEDS: AMLODIPINE BESYLATE 10 MG TABLET PO SCH (08:50)
[2016-11-08] MEDS: VALSARTAN 80 MG TABLET PO SCH (08:50)
[2016-11-08] MEDS: CLONIDINE HCL 0.1 MG TABLET PO SCH ×3 (08:51→16:43)
[2016-11-08 09:22] LABS: HEPATITIS A AB, IgM Negative (Negative); HEPATITIS B CORE AB, IgM Negative (Negative); HEPATITIS C VIRUS AB <0.1 s/co ratio (0.0-0.9)
--- NOTE | 2016-11-08 11:33 | NUR ---
WOUND CARE CONSULT: PATIENT SEEN AND SKIN ASSESSMENT DONE. PATIENT ALERT, AMBULATORY, INDEPENDENT WITH BED MOBILITY HOWEVER NEEDS PROMPTING TO TURN AND REPOSITION, LEFT UPPER ARM WITH A/V SHUNT, FREEMAN 16. SEE TODAY'S SKIN ASSESSMENT IN PCS ALONG WITH RECOMMENDATIONS. RECOMMEND MOISTURE PROTECTION WITH Z GUARD ORDERED, PRESSURE PREVENTION MEASURES ORDERED. ALL DISCUSSED WITH NURSING STAFF. MD IN AGREEMENT WITH PLAN OF CARE. Addendum: 11/08/16 at 1135 by TONY PATEL WNDNU Amended: Links added.
[2016-11-08] MEDS: CEFTAZIDIME 1 G in IV D5W 50 ML IV SCH (11:34)
[2016-11-08] MEDS: Z GUARD REMEDY 2 OZ OINT TP SCH ×2 (13:00→16:43)
[2016-11-08] MEDS: Z GUARD REMEDY 2 OZ OINT TP PRN (13:00)
[2016-11-08] MEDS: HYDROGEL DRESSING 90 GM TUBE TP SCH (13:00)
--- NOTE | 2016-11-08 18:26 | NUR ---
RN CLOSING NOTES PT REMAINED STABLE DURING SHIFT, ALL MD ORDERS CARRIED OUT, ALL MEDICATIONS GIVEN, IV REMAINED C/D/I/PATENT, PT RECEIVING HD AT THIS TIME.ALL TREATMENTS CARRIED OUT, PT KEPT CLEAN AND DRY, ALL SAFETY MEASURES IN PLACE AT ALL TIMES, REPORT WILL BE GIVEN TO PM RN FOR CM
--- NOTE | 2016-11-08 19:30 | NUR ---
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 PT TOLERATED WELL AND REMAINED A/O X3. ON 4L 02 VIA NC WT NO ACUTE DISTRESS. C/O GENERALIZED PAIN (3/10), RELAXATION AND DISTRACTION TECHNIQUES RENDERED AND WT GOOD EFFECT. HE SAID HE DOES NOT NEED ANY PAIN MED AT THIS TIME. SR WT BBB ON TELE MONITOR. SAFETY PRECAUTION NOTED. CALL LIGHT KEPT WITHIN REACH.
[2016-11-09] VITALS: BP 136/83
[2016-11-09] MEDS: diphenhydrAMINE HCL 50 MG/ML VIAL IV PRN ×4 (01:37→20:24)
[2016-11-09] MEDS: HYDROMORPHONE INJ 2 MG/ML DISP.SYRIN IV PRN ×5 (01:39→20:23)
[2016-11-09 04:00] VITALS: BP 145/77
--- NOTE | 2016-11-09 06:30 | NUR ---
TD RN: NO SIGNIFICANT CM DURING THE SHIFT. REMAINED A/O X 3. VS WITHIN HIS BASELINE. ON 2L 02 VIA NC WT NO ACUTE DISTRESS. GIVEN DILAUDID ORDERED FOR LOWER BACK PAIN (8/10) WT GOOD EFFECT (0/10). REFUSED SPONGED/BED BATH DESPITE EXPLANATION OF RISKS AND BENEFITS AND INFORMING PT. THAT HE LOOKS UNKEMPT. STATED, "DAY SHIFT WILL TAKE CARE OF IT". MINIMAL RIGHT NASAL BLEEDING NOTED. PRESSURE APPLIED WT ICE AND WT GOOD EFFECT. SAFETY PRECAUTION NOTED AT ALL TIMES. CALL LIGHT WITHIN REACH.
[2016-11-09 08:00] VITALS: BP 127/80
--- NOTE | 2016-11-09 08:00 | NUR ---
TD/RN AM SHIFT INITIAL NOTES RECEIVED PT AWAKE SITTING IN BED. PT A/O X 3, NO ACUTE RESPIRATORY DISTRESS NOTED, DENIES ANY SYMPTOMS. ON ROOM AIR @ 94%, LUNG SOUNDS CLEAR. ON TELE WITH SINUS RHYTHM WITH BBB, HR 85. RIGHT CHEST WALL BLANCA CATH INTACT AND CLEAN. PT IS COMFORTABLE. SCHEDULED AM MEDS TO BE GIVEN. CL WITHIN REACHED AND SAFETY MAINTAINED. ON GOING MONITORING.
--- NOTE | 2016-11-09 08:15 | NUR ---
TD/RN ROUNDS - DR. THOMAS PT SEEN & EXAMINED BY DR. THOMAS. NO NEW ORDERS RECEIVED AT THIS TIME. MONITORING CONTINUED.
--- NOTE | 2016-11-09 08:40 | NUR ---
TD/RN ROUNDS - DR. HENDRICKS PT SEEN & EXAMINED BY DR. HENDRICKS. NO NEW ORDERS RECEIVED AT THIS TIME. MONITORING CONTINUED.
[2016-11-09] MEDS: SEVELAMER CARBONATE 800 MG TABLET PO SCH ×3 (08:48→17:43)
[2016-11-09] MEDS: CARVEDILOL 6.25 MG TABLET PO SCH ×2 (08:48→20:29)
[2016-11-09] MEDS: PANTOPRAZOLE 40 MG TABLET.DR PO SCH (08:49)
[2016-11-09] MEDS: CLONIDINE HCL 0.1 MG TABLET PO SCH ×3 (08:49→17:43)
[2016-11-09] MEDS: BENAZEPRIL HCL 20 MG TABLET PO SCH (08:49)
[2016-11-09] MEDS: AMLODIPINE BESYLATE 10 MG TABLET PO SCH (08:49)
[2016-11-09] MEDS: SUCRALFATE 1 G TABLET PO SCH ×3 (08:49→17:43)
[2016-11-09] MEDS: FOLIC ACID 1 MG TABLET PO SCH (08:49)
[2016-11-09] MEDS: MINOXIDIL (2.5MG) 2.5 MG TABLET PO SCH ×2 (08:50→17:43)
[2016-11-09] MEDS: VALSARTAN 80 MG TABLET PO SCH (08:53)
[2016-11-09] MEDS: Z GUARD REMEDY 2 OZ OINT TP SCH ×2 (08:54→17:43)
[2016-11-09] MEDS: HYDROGEL DRESSING 90 GM TUBE TP SCH (08:54)
--- NOTE | 2016-11-09 11:08 | NUR ---
MS1/RN ROUNDS - PHYSICAL THERAPIST PT BEING SEEN BY PHYSICAL THERAPIST. PER PHYSICAL THERAPIST ASSESSMENT, PT NEED PT WALKED 120 FEET, WITH FRONT WHEEL WALKER AND MINIMUM ASSIST. CONTACT GUARD IN BED MOBILITY. PT IS STILL FALL RISK.
[2016-11-09] MEDS ORDERED: SECONDARY IV SET 1 EA INFUS.SET MC ONE (11:39)
[2016-11-09] MEDS: CEFTAZIDIME 1 G in IV D5W 50 ML IV SCH (12:01)
[2016-11-09 16:00] VITALS: BP 118/65
--- NOTE | 2016-11-09 19:16 | NUR ---
MS1/RN AM SHIFT END NOTES NO ACUTE CHANGE OF CONDITION NOTED DURING THE SHIFT. NEEDS MET. PT ENDORSED TO PM NURSE TO CONTINUE CARE. CL WITHIN REACHED AND SAFETY MAINTAINED.
--- NOTE | 2016-11-09 19:25 | NUR ---
RN INITIAL NOTE; PT ON THE BED RESTING WITHOUT ANY DISTRESS, A/O x3 , BREATHING EVEN AND UNLABORED ON 2LPM , JAX AV FISTULA AND R CHEST WALL BLANCA CATH INTACT , VERBALIZED PAIN WITHIN TOLERABLE LEVEL AT THIS TIME, BED IN THE LOWEST AND LOCKED POSITION , SAFETY MEASURES APPLIED, CALL LIGHT WITHIN REACH .WILL CONTINUE TO MONITOR .
[2016-11-09 20:00] VITALS: BP 127/78
[2016-11-10] VITALS: BP 130/73
[2016-11-10] MEDS: HYDROMORPHONE INJ 2 MG/ML DISP.SYRIN IV PRN ×6 (01:58→22:35)
[2016-11-10 04:00] VITALS: BP 115/73
[2016-11-10] MEDS: diphenhydrAMINE HCL 50 MG/ML VIAL IV PRN ×5 (06:08→22:34)
--- NOTE | 2016-11-10 07:05 | NUR ---
RN EOS NOTE; NO ANY DISTRESS DURING THE SHIFT, R CHEST BLANCA CATH AND JAX AV FISTULA INTACT , PRN DILAUDID AND BENADRYL IV GIVEN NEEDED, KEPT COMFORTABLE, ALL NEEDS ATTENDED PROMPTLY. ENDORSED TO NEXT SHIFT RN FOR CONTINUITY OF CARE.
[2016-11-10 08:00] VITALS: BP 141/84
[2016-11-10 08:55] LABS: BASOPHILS # (AUTO) 0.1 /CMM (0.0-0.2); BASOPHILS % (AUTO) 0.6 % (0.0-2.0); EOSINOPHILS # (AUTO) 0.2 /CMM (0.0-0.7); EOSINOPHILS % (AUTO) 2.5 % (0.0-6.0); HEMATOCRIT 21 % (39-51); HEMOGLOBIN 7.2 g/dL (13.5-17.5); LYMPHOCYTES # (AUTO) 2.2 /CMM (0.8-4.8); LYMPHOCYTES % (AUTO) 23.5 % (20.0-44.0); MEAN CORPUSCULAR HEMOGLOBIN 30 PG (26.0-33.0); MEAN CORPUSCULAR HGB CONC 34 g/dl (31.0-36.0); MEAN CORPUSCULAR VOLUME 87 fL (80-96); MONOCYTES # (AUTO) 1.4 /CMM (0.1-1.30); MONOCYTES % (AUTO) 14.8 % (2.0-12.0); NEUTROPHILS # (AUTO) 5.4 /CMM (1.8-8.9); NEUTROPHILS % (AUTO) 58.6 % (43.0-81.0); RDW COEFFICIENT OF VARIATION 16.7 (11.5-15.0); RED BLOOD CELL COUNT(AUTO) 2.43 MIL/uL (4.5-6.0); WHITE BLOOD COUNT (AUTO) 9.2 K/uL (4.3-11.0)
[2016-11-10 08:58] LABS: PLATELET COUNT (AUTO) 37 /CMM (150-450)
[2016-11-10 09:33] LABS: CALCIUM, SERUM 8.1 mg/dL (8.5-10.1); CREATININE 4.8 mg/dL (0.6-1.3); POTASSIUM 4.2 mmol/L (3.5-5.1)
[2016-11-10] MEDS: MINOXIDIL (2.5MG) 2.5 MG TABLET PO SCH ×2 (09:44→17:05)
[2016-11-10] MEDS: PANTOPRAZOLE 40 MG TABLET.DR PO SCH (09:44)
[2016-11-10] MEDS: CARVEDILOL 6.25 MG TABLET PO SCH ×2 (09:45→21:31)
[2016-11-10] MEDS: SEVELAMER CARBONATE 800 MG TABLET PO SCH ×3 (09:45→17:04)
[2016-11-10] MEDS: CLONIDINE HCL 0.1 MG TABLET PO SCH ×3 (09:45→17:05)
[2016-11-10] MEDS: SUCRALFATE 1 G TABLET PO SCH ×3 (09:46→17:05)
[2016-11-10] MEDS: AMLODIPINE BESYLATE 10 MG TABLET PO SCH (09:46)
[2016-11-10] MEDS: BENAZEPRIL HCL 20 MG TABLET PO SCH (09:46)
[2016-11-10] MEDS: VALSARTAN 80 MG TABLET PO SCH (09:46)
[2016-11-10] MEDS: Z GUARD REMEDY 2 OZ OINT TP SCH ×2 (09:47→17:05)
[2016-11-10] MEDS: HYDROGEL DRESSING 90 GM TUBE TP SCH (09:47)
[2016-11-10] MEDS: FOLIC ACID 1 MG TABLET PO SCH (09:51)
[2016-11-10 12:00] VITALS: BP 135/56
[2016-11-10] MEDS ORDERED: SECONDARY IV SET 1 EA INFUS.SET MC ONE (12:38)
[2016-11-10] MEDS: CEFTAZIDIME 1 G in IV D5W 50 ML IV SCH (12:43)
[2016-11-10 12:54] LABS: LYMPHOCYTES % (MANUAL) 20 % (16-48); MONOCYTES % (MANUAL) 10 % (0-11.0); NEUTROPHILS % (MANUAL) 70 (42-76)
[2016-11-10 12:55] LABS: PLATELET ESTIMATE DECREASED
[2016-11-10 16:00] VITALS: BP_SYST 141; BP_SYST 145; BP_DIAS 67; BP_DIAS 84
--- NOTE | 2016-11-10 19:09 | NUR ---
RN INITIAL NOTES RECEIVED PATIENT IN BED, AWAKE AND ALERT. PATIENT VERBALIZES RELIEF FROM PAIN AT THIS TIME, MEDICATED WITH DILAUDID IV PRN BY AM NURSE AT 1830. PROVIDED PATIENT WITH REDIRECTION AND SAFETY AND COMFORT ENSURED. ON 2LPM OF O2 VIA NC, RESPIRATION IS EVEN AND UNLABORED, NO SOB NOTED. JAX AV SHUNT WITH DRESSING INTACT, (+) BRUIT AND THRILL APPRECIATED. R CHEST WALL PORT-A-CATH WITH DRESSING INTACT, FLUSHED AND PATENT. PATIENT'S NEEDS ANTICIPATED AND MET. SAFETY AND COMFORT ENSURED. BED IN LOW AND LOCKED POSITION. CALL LIGHT IN REACH. WILL MONITOR.
[2016-11-10 20:00] VITALS: BP 145/67
[2016-11-11] VITALS (9 sets, daily range): BP systolic 112–144; BP diastolic 59–79
[2016-11-11] MEDS: HYDROMORPHONE INJ 2 MG/ML DISP.SYRIN IV PRN ×6 (02:29→22:13)
[2016-11-11] MEDS: diphenhydrAMINE HCL 50 MG/ML VIAL IV PRN ×3 (02:29→22:13)
--- NOTE | 2016-11-11 06:57 | NUR ---
RN CLOSING NOTES PATIENT IN BED, WITH NO ACUTE DISTRESS OBSERVED OVERNIGHT. MEDICATED PATIENT WITH DILAUDID AND BENADRYL WITH HELP FOR THE PATIENT'S PAIN AND DISCOMFORT. PATIENT'S NEEDS ANTICIPATED AND MET. SAFETY AND COMFORT ENSURED. BED IN LOW AND LOCKED POSITION. WILL ENDORSE ACCORDINGLY FOR CONTINUITY OF CARE.
--- NOTE | 2016-11-11 07:10 | NUR ---
RN INTIAL NOTE RECEIVED PT FROM PM NURSE. A/O 3 . NC 2L NO S/S ACUTE SOB. F/C INTACT. IV R UA AV SHUNT, RCW PORTACATH FLUSH AND PATENT. ALL SAFETY MEASURES IN PLACE. PT CLEAN WARM AND DRY. WILL CONTINUE TO MONITOR CLOSELY.
[2016-11-11 07:13] LABS: BASOPHILS % (AUTO) 0.3 % (0.0-2.0); EOSINOPHILS # (AUTO) 0.2 /CMM (0.0-0.7); EOSINOPHILS % (AUTO) 2.1 % (0.0-6.0); LYMPHOCYTES # (AUTO) 2.2 /CMM (0.8-4.8); LYMPHOCYTES % (AUTO) 24.6 % (20.0-44.0); MEAN CORPUSCULAR HEMOGLOBIN 30 PG (26.0-33.0); MEAN CORPUSCULAR HGB CONC 35 g/dl (31.0-36.0); MEAN CORPUSCULAR VOLUME 87 fL (80-96); MONOCYTES # (AUTO) 1.7 /CMM (0.1-1.30); MONOCYTES % (AUTO) 18.3 % (2.0-12.0); NEUTROPHILS % (AUTO) 54.7 % (43.0-81.0); RDW COEFFICIENT OF VARIATION 16.7 (11.5-15.0); RED BLOOD CELL COUNT(AUTO) 2.22 MIL/uL (4.5-6.0); WHITE BLOOD COUNT (AUTO) 9.1 K/uL (4.3-11.0)
[2016-11-11 07:26] LABS: CALCIUM, SERUM 7.6 mg/dL (8.5-10.1); CREATININE 4.5 mg/dL (0.6-1.3); MAGNESIUM 2.1 mg/dL (1.8-2.4); POTASSIUM 3.9 mmol/L (3.5-5.1)
[2016-11-11] MEDS: AMLODIPINE BESYLATE 10 MG TABLET PO SCH (08:20)
[2016-11-11] MEDS: CLONIDINE HCL 0.1 MG TABLET PO SCH ×3 (08:20→16:56)
[2016-11-11] MEDS: FOLIC ACID 1 MG TABLET PO SCH (08:21)
[2016-11-11] MEDS: SEVELAMER CARBONATE 800 MG TABLET PO SCH ×3 (08:21→18:35)
[2016-11-11] MEDS: PANTOPRAZOLE 40 MG TABLET.DR PO SCH (08:21)
[2016-11-11] MEDS: MINOXIDIL (2.5MG) 2.5 MG TABLET PO SCH ×2 (08:21→16:56)
[2016-11-11] MEDS: SUCRALFATE 1 G TABLET PO SCH ×3 (08:21→16:55)
[2016-11-11] MEDS: BENAZEPRIL HCL 20 MG TABLET PO SCH (08:21)
[2016-11-11] MEDS: CARVEDILOL 6.25 MG TABLET PO SCH ×2 (08:22→20:29)
[2016-11-11] MEDS: VALSARTAN 80 MG TABLET PO SCH (08:22)
[2016-11-11] MEDS: HYDROGEL DRESSING 90 GM TUBE TP SCH (08:23)
[2016-11-11] MEDS: Z GUARD REMEDY 2 OZ OINT TP SCH ×2 (08:23→16:56)
[2016-11-11 08:41] LABS: HEMATOCRIT 19 % (39-51); HEMOGLOBIN 6.7 g/dL (13.5-17.5)
[2016-11-11 08:42] LABS: PLATELET COUNT (AUTO) 38 /CMM (150-450)
[2016-11-11 08:46] LABS: ANISOCYTOSIS 1+; BAND % (MANUAL) 1 % (0.0-5.0); EOSINOPHILS % (MANUAL) 2 % (0-4); LYMPHOCYTES % (MANUAL) 23 % (16-48); MONOCYTES % (MANUAL) 13 % (0-11.0); MYELOCYTES % 1 % (0-0); NEUTROPHILS % (MANUAL) 60 (42-76); PLATELET ESTIMATE DECREASED
[2016-11-11] MEDS: CEFTAZIDIME 1 G in IV D5W 50 ML IV SCH (11:24)
[2016-11-11] MEDS ORDERED: IV SET PRIMARY 1 EA INFUS.SET MC ONE (11:59)
[2016-11-11] MEDS ORDERED: IV NS 0.9% 250 ML IV ONE (11:59)
[2016-11-11] MEDS ORDERED: BLOOD IV SET 1 EA INFUS.SET MC ONE (11:59)
--- NOTE | 2016-11-11 13:38 | NUR ---
RN NOTE PRBC STARTED ORDER RECEIVED FROM DR. WADE. MD BLACKMON OF H/H.
[2016-11-11 17:07] LABS: BASOPHILS % (AUTO) 0.5 % (0.0-2.0); EOSINOPHILS # (AUTO) 0.2 /CMM (0.0-0.7); EOSINOPHILS % (AUTO) 2.4 % (0.0-6.0); HEMATOCRIT 22 % (39-51); HEMOGLOBIN 7.4 g/dL (13.5-17.5); LYMPHOCYTES # (AUTO) 2.3 /CMM (0.8-4.8); LYMPHOCYTES % (AUTO) 24.2 % (20.0-44.0); MEAN CORPUSCULAR HEMOGLOBIN 29 PG (26.0-33.0); MEAN CORPUSCULAR HGB CONC 34 g/dl (31.0-36.0); MEAN CORPUSCULAR VOLUME 86 fL (80-96); MONOCYTES # (AUTO) 1.6 /CMM (0.1-1.30); MONOCYTES % (AUTO) 17.3 % (2.0-12.0); NEUTROPHILS # (AUTO) 5.3 /CMM (1.8-8.9); NEUTROPHILS % (AUTO) 55.6 % (43.0-81.0); RED BLOOD CELL COUNT(AUTO) 2.55 MIL/uL (4.5-6.0); WHITE BLOOD COUNT (AUTO) 9.5 K/uL (4.3-11.0)
[2016-11-11 17:53] LABS: PLATELET COUNT (AUTO) 37 /CMM (150-450)
[2016-11-11 17:54] LABS: BAND % (MANUAL) 3 % (0.0-5.0); LYMPHOCYTES % (MANUAL) 17 % (16-48); NEUTROPHILS % (MANUAL) 60 (42-76)
[2016-11-11 17:55] LABS: ANISOCYTOSIS 1+; BASOPHILS % (MANUAL) 0 % (0.0-2.0); EOSINOPHILS % (MANUAL) 2 % (0-4); MONOCYTES % (MANUAL) 14 % (0-11.0); PLATELET ESTIMATE DECREASED; REACTIVE LYMPHOCYTES 4 % (0-0); TARGET CELLS 1+
--- NOTE | 2016-11-11 19:34 | NUR ---
RN CLOSING NOTE A/O 3 . NC 2L NO S/S ACUTE SOB. IV R UA AV SHUNT, RCW PORTACATH FLUSH AND PATENT.ALL MEDICATIONS GIVEN, ALL ORDERS CARRIED OUT. ALL SAFETY MEASURES IN PLACE. PT CLEAN WARM AND DRY. REPORT GIVEN TO PM NURSE.
[2016-11-12] MEDS: HYDROMORPHONE INJ 2 MG/ML DISP.SYRIN IV PRN ×5 (03:00→23:57)
[2016-11-12] MEDS: diphenhydrAMINE HCL 50 MG/ML VIAL IV PRN ×5 (03:00→23:55)
[2016-11-12 04:00] VITALS: BP 128/68
[2016-11-12 04:11] VITALS: BP 128/68
--- NOTE | 2016-11-12 06:43 | NUR ---
PT CONTINUE TO HAVE BACK PAIN AND LEG PAIN ,GIVEN DILAUDID SHOT EVERY 4 HRS WITH BENADRYL.VSS,AFEBRILE, AMBULATES TO BATHROOM WITH BM. FOR DIALYSIS TODAY. NO SIGNIFICANT CHANGES ,VSS,AFEBRILE.
[2016-11-12] MEDS: PANTOPRAZOLE 40 MG TABLET.DR PO SCH (07:04)
[2016-11-12 07:07] LABS: BASOPHILS # (AUTO) 0.1 /CMM (0.0-0.2); BASOPHILS % (AUTO) 0.6 % (0.0-2.0); EOSINOPHILS # (AUTO) 0.3 /CMM (0.0-0.7); HEMATOCRIT 23 % (39-51); HEMOGLOBIN 7.8 g/dL (13.5-17.5); LYMPHOCYTES # (AUTO) 2.7 /CMM (0.8-4.8); LYMPHOCYTES % (AUTO) 23.3 % (20.0-44.0); MEAN CORPUSCULAR HEMOGLOBIN 30 PG (26.0-33.0); MEAN CORPUSCULAR HGB CONC 34 g/dl (31.0-36.0); MEAN CORPUSCULAR VOLUME 87 fL (80-96); MONOCYTES # (AUTO) 1.7 /CMM (0.1-1.30); MONOCYTES % (AUTO) 14.6 % (2.0-12.0); NEUTROPHILS # (AUTO) 6.7 /CMM (1.8-8.9); NEUTROPHILS % (AUTO) 58.5 % (43.0-81.0); RDW COEFFICIENT OF VARIATION 16.2 (11.5-15.0); RED BLOOD CELL COUNT(AUTO) 2.63 MIL/uL (4.5-6.0); WHITE BLOOD COUNT (AUTO) 11.5 K/uL (4.3-11.0)
--- NOTE | 2016-11-12 07:10 | NUR ---
RN INITIAL NOTES RECEIVED PT IN BED, AWAKE, ABLE TO MAKE NEEDS KNOWN, PT IS ON 2L NC, SATING WELL, NO S/S OF RESP. DISTRESS OR SOB, PT HAS R CHEST PORT, SL, C/D/I/ PATENT, FLUSHING WELL, NO S/S OF INFECTION/ INFILTRATION, JAX AV SHUNT, DRESSING INTACT, CLEAN AND DRY, PT IS NOTED WITH SKIN ISSUES, ALL SAFETY MEASURES IN PLACE AT ALL TIMES, CALL LIGHT WITHIN EASY REACH, WILL MONITOR PT CLOSELY
[2016-11-12 07:15] LABS: PLATELET COUNT (AUTO) 40 /CMM (150-450)
[2016-11-12 07:25] LABS: CALCIUM, SERUM 8.3 mg/dL (8.5-10.1); CREATININE 5.5 mg/dL (0.6-1.3); MAGNESIUM 2.2 mg/dL (1.8-2.4); PHOSPHORUS 4.1 mg/dL (2.5-4.9)
[2016-11-12 08:00] VITALS: BP_SYST 148; BP_DIAS 80; BP_DIAS 83
[2016-11-12] MEDS: FOLIC ACID 1 MG TABLET PO SCH (08:45)
[2016-11-12] MEDS: SUCRALFATE 1 G TABLET PO SCH ×3 (08:45→16:52)
[2016-11-12] MEDS: VALSARTAN 80 MG TABLET PO SCH ×2 (08:46→08:54)
[2016-11-12] MEDS: SEVELAMER CARBONATE 800 MG TABLET PO SCH ×3 (08:46→17:00)
[2016-11-12] MEDS: MINOXIDIL (2.5MG) 2.5 MG TABLET PO SCH ×3 (08:46→16:53)
[2016-11-12] MEDS: AMLODIPINE BESYLATE 10 MG TABLET PO SCH ×2 (08:47→08:55)
[2016-11-12] MEDS: CARVEDILOL 6.25 MG TABLET PO SCH ×3 (08:47→22:05)
[2016-11-12] MEDS: CLONIDINE HCL 0.1 MG TABLET PO SCH ×4 (08:47→16:53)
[2016-11-12] MEDS: BENAZEPRIL HCL 20 MG TABLET PO SCH ×2 (08:47→08:54)
[2016-11-12] MEDS: Z GUARD REMEDY 2 OZ OINT TP SCH ×2 (08:48→16:55)
[2016-11-12] MEDS: HYDROGEL DRESSING 90 GM TUBE TP SCH (08:48)
[2016-11-12 08:57] LABS: EOSINOPHILS % (MANUAL) 3 % (0-4); LYMPHOCYTES % (MANUAL) 30 % (16-48); MONOCYTES % (MANUAL) 9 % (0-11.0); NEUTROPHILS % (MANUAL) 58 (42-76)
[2016-11-12 08:58] LABS: ANISOCYTOSIS 1+; PLATELET ESTIMATE DECREASED
--- NOTE | 2016-11-12 09:16 | NUR ---
RN NOTES PT IS CURRENTLY RECEIVING HD,NO BP MEDICATIONS WERE GIVEN, BP 148/83 HR 80BPM
--- NOTE | 2016-11-12 11:13 | NUR ---
RN NOTES NON ADMINISTERED PINK MEDICATIONS FOR PT SAFETY
[2016-11-12] MEDS: CEFTAZIDIME 1 G in IV D5W 50 ML IV SCH (12:10)
--- NOTE | 2016-11-12 12:51 | NUR ---
FLOWER PAYTON EPOETIN GIVEN EARLY, FINISHED HD Addendum: 11/12/16 at 1304 by JUAREZ PEREZ RN 3.5 L OUT
[2016-11-12] MEDS ORDERED: EPOETIN ALFA (10,000 UNIT) 10,000 UNIT/ML VIAL SQ ONE (15:00)
[2016-11-12 16:00] VITALS: BP 160/80
--- NOTE | 2016-11-12 18:49 | NUR ---
RN CLOSING NOTES PT REMAINED STABLE DURING SHIFT, ALL MD ORDERS CARRIED OUT, ALL MEDICATIONS GIVEN, PT WAS KEPT CLEAN AND DRY, IV REMAINS INTACT, TREATMENTS CARRIED OUT, ALL SAFETY MEASURES IN PLACE AT ALL TIMES, CALL LIGHT WITHIN EASY REACH, WILL GIVE REPORT TO PM RN FOR CM
--- NOTE | 2016-11-12 19:30 | NUR ---
MS RN INITIAL NOTE RECEIVED PT IN BED. A/O X4 AND ABLE TO MAKE NEEDS KNOWN. ON 2L OF O2 VIA NC AND SATING WELL. R CHEST WALL PORT A CATH AND A JAX AV SHUNT BOTH CLEAN AND INTACT. ALL SAFETY MEASURES IN PLACE. CALL LIGHT WITHIN EASY REACH AT ALL TIMES. WILL CONTINUE TO MONITOR.
[2016-11-12 20:00] VITALS: BP 144/75
--- NOTE | 2016-11-13 | NUR ---
MS RN NOTE ATTEMPTED TO REMOVE DILAUDID FROM PIXIS FOR PAIN MANAGEMENT. PIXIS DISPLAYED AN ERROR MESSAGE "DRAWER FAILED, CLOSE TO RECOVER" NO MEDICATION WAS REMOVED FROM PIXIS AND DRAWER WAS CLOSED. PERFORMED RECOVER ACCORDING TO DIRECTIONS ON PIXIS WITH SUCCESS. WHEN REMOVING DILAUDID FROM PIXIS (POST RECOVERY) THE COUNT HAD CHANGED FROM 13 TO 12 DUE TO THE PIXIS SHOWING THAT DILAUDID WAS REMOVED WHEN DRAWER FAILED. NOTIFIED CHARGE NURSE OF THE DISCREPANCY AND IMMEDIATELY FIXED DISCREPANCY ON PIXIS. WILL NOTIFY PHARMACY IN THE AM.
[2016-11-13 04:00] VITALS: BP 149/76
[2016-11-13] MEDS: diphenhydrAMINE HCL 50 MG/ML VIAL IV PRN ×4 (04:02→17:09)
[2016-11-13] MEDS: HYDROMORPHONE INJ 2 MG/ML DISP.SYRIN IV PRN ×4 (04:02→17:08)
[2016-11-13] MEDS: PANTOPRAZOLE 40 MG TABLET.DR PO SCH (06:41)
--- NOTE | 2016-11-13 06:46 | NUR ---
MS RN CLOSING NOTE PT REMAINED STABLE DURING SHIFT. PAIN KEPT UNDER CONTROL EVERY 4HOURS. NO ACUTE DISTRESS NOTED. ALL SAFETY MEASURES IN PLACE. CALL LIGHT WITHIN EASY REACH AT ALL TIMES. WILL ENDORSE TO NEXT SHIFT FOR CM.
[2016-11-13 06:52] LABS: BASOPHILS # (AUTO) 0.1 /CMM (0.0-0.2); BASOPHILS % (AUTO) 0.5 % (0.0-2.0); EOSINOPHILS # (AUTO) 0.2 /CMM (0.0-0.7); EOSINOPHILS % (AUTO) 2.1 % (0.0-6.0); HEMATOCRIT 21 % (39-51); HEMOGLOBIN 7.2 g/dL (13.5-17.5); LYMPHOCYTES # (AUTO) 2.4 /CMM (0.8-4.8); LYMPHOCYTES % (AUTO) 20.2 % (20.0-44.0); MEAN CORPUSCULAR HEMOGLOBIN 30 PG (26.0-33.0); MEAN CORPUSCULAR HGB CONC 35 g/dl (31.0-36.0); MEAN CORPUSCULAR VOLUME 87 fL (80-96); MONOCYTES % (AUTO) 17.1 % (2.0-12.0); NEUTROPHILS % (AUTO) 60.1 % (43.0-81.0); RDW COEFFICIENT OF VARIATION 15.8 (11.5-15.0); RED BLOOD CELL COUNT(AUTO) 2.39 MIL/uL (4.5-6.0); WHITE BLOOD COUNT (AUTO) 11.6 K/uL (4.3-11.0)
[2016-11-13 07:58] LABS: PLATELET COUNT (AUTO) 42 /CMM (150-450)
[2016-11-13 08:00] VITALS: BP 137/74
--- NOTE | 2016-11-13 08:00 | NUR ---
MS RN NOTE PATENT IN BED , ALL NEEDS ATTENDED RT UPPER ARM AV SHUNT , RT CHEST BLANCA CATH IN PLACE FLUSHED WELL .BED IN LOWEST AND LOCKED POSITION , CALL LIGHT WITHIN REACH WILL HOLD BP MEDS PATIENT WILL HAVE HD PLAN OF CARE DISCUSSED WITH PATIENT WILL CONT TO MONITOR CLOSELY
[2016-11-13 08:03] LABS: ANISOCYTOSIS 1+; BAND % (MANUAL) 2 % (0.0-5.0); EOSINOPHILS % (MANUAL) 1 % (0-4); LYMPHOCYTES % (MANUAL) 20 % (16-48); MONOCYTES % (MANUAL) 12 % (0-11.0); NEUTROPHILS % (MANUAL) 65 (42-76); PLATELET ESTIMATE DECREASED
[2016-11-13] MEDS: SEVELAMER CARBONATE 800 MG TABLET PO SCH ×3 (08:51→17:10)
[2016-11-13] MEDS: SUCRALFATE 1 G TABLET PO SCH ×3 (08:51→16:32)
[2016-11-13] MEDS: FOLIC ACID 1 MG TABLET PO SCH (08:51)
[2016-11-13] MEDS: CLONIDINE HCL 0.1 MG TABLET PO SCH ×3 (08:52→16:33)
[2016-11-13] MEDS: CARVEDILOL 6.25 MG TABLET PO SCH (08:53)
[2016-11-13] MEDS: HYDROGEL DRESSING 90 GM TUBE TP SCH (08:54)
[2016-11-13] MEDS: Z GUARD REMEDY 2 OZ OINT TP PRN (08:54)
[2016-11-13] MEDS: Z GUARD REMEDY 2 OZ OINT TP SCH ×2 (08:55→16:34)
[2016-11-13] MEDS: VALSARTAN 80 MG TABLET PO SCH (09:00)
[2016-11-13] MEDS: AMLODIPINE BESYLATE 10 MG TABLET PO SCH (09:00)
[2016-11-13] MEDS: MINOXIDIL (2.5MG) 2.5 MG TABLET PO SCH ×2 (09:00→16:33)
[2016-11-13] MEDS: BENAZEPRIL HCL 20 MG TABLET PO SCH (09:00)
--- NOTE | 2016-11-13 09:00 | NUR ---
MS RN NOTE HOLD BP MEDS PATIENT ON HD
--- NOTE | 2016-11-13 09:00 | NUR ---
REGIONAL FACILITIES MANAGER NOTE MORPHINE AND BENADRYL GIVEN ORDERED WILL CONT TO MONITOR CLOSELY ,
--- NOTE | 2016-11-13 09:50 | NUR ---
MS RN NOTE DR MELARA AWARE THAT HG 7.2 NA 129 PLATELETS 42, STATED THAT WILL ADJUST WITH HD
--- NOTE | 2016-11-13 11:20 | NUR ---
MS RN NOTE HD COMPLECTED ,REMOVED 3 L OUT BP 121/78
[2016-11-13] MEDS: CEFTAZIDIME 1 G in IV D5W 50 ML IV SCH (12:13)
[2016-11-13 16:00] VITALS: BP 146/73
[2016-11-13 16:33] VITALS: BP 146/73
--- NOTE | 2016-11-13 17:15 | NUR ---
MS NOTES PATIENT C/O OF LOWER BACK PAIN 8/10, AND ITCHING THE WHOLE BODY, DILAUDID AND BENADRYL IV P GIVEN ORDER.
--- NOTE | 2016-11-13 19:00 | NUR ---
MS RN NOTE DISCHARGE INSTRUCTION GIVEN ,UNDERSTOOD , NEEDLE FROM BLANCA CATH REMOVE, INSTRUCTED HOW TO TAKE HOME MEDS AND HOW FOLLOW HOME HEALTH AND FOLLOW HD SCHEDULE TAXI VOUCHER GIVEN , WILL GO HOME BY TAXI Addendum: 11/13/16 at 1939 by CECILIA HOFFMAN RN WALKER GIVEN TO PATIENT EXPLAINED HOW TO USE
--- NOTE | 2016-11-13 19:02 | NUR ---
MS RN NOTE WENT HOME WITH STABLE CONDITION BY TAXI
== END 2016-11-13 18:56 | disposition home health service (06) | DRG 720 ==
LOC: ER 19:54 → TELE-TD 21:42 → MEDSG1 11-09 09:59
PROVIDERS: ADMIT Internal Medicine; ATTEND Internal Medicine
PROC: 30233N1 Transfusion of Nonautologous Red Blood Cells into Peripheral Vein, Percutaneous Approach (ICD-10-PCS; principal; 2016-11-06)
PROC: 5A1D60Z (ICD-10-PCS; 2016-11-07)
DX: A41.9 Sepsis, unspecified organism (principal); J86.9 Pyothorax without fistula; I50.33 Acute on chronic diastolic (congestive) heart failure; J96.00 Acute respiratory failure, unspecified whether with hypoxia or hypercapnia; N18.6 End stage renal disease; J96.91 Respiratory failure, unspecified with hypoxia; J15.0 Pneumonia due to Klebsiella pneumoniae; D69.6 Thrombocytopenia, unspecified; E44.1 Mild protein-calorie malnutrition; J44.0 Chronic obstructive pulmonary disease with (acute) lower respiratory infection; E87.5 Hyperkalemia; D57.1 Sickle-cell disease without crisis; I13.2 Hypertensive heart and chronic kidney disease with heart failure and with stage 5 chronic kidney disease, or end stage renal disease; E78.5 Hyperlipidemia, unspecified; G89.29 Other chronic pain; Z99.2 Dependence on renal dialysis; I25.2 Old myocardial infarction; D64.9 Anemia, unspecified; N28.89 Other specified disorders of kidney and ureter; K29.50 Unspecified chronic gastritis without bleeding; K20.9 Esophagitis, unspecified; Z68.30 Body mass index [BMI] 30.0-30.9, adult; Z96.649 Presence of unspecified artificial hip joint
CPT/HCPCS: 36415; 36600; 71010-TC; 71250-TC; 80048-TC; 80074; 80076-TC; 82803-TC; 83605-TC; 83735-TC; 84100-TC; 84484-TC; 85025-TC; 85730-TC; 86850-TC; 86921-TC; 87040-TC; 87070-TC; 87081-TC; 90935-TC; 93970-TC; 93971-TC; 94660; 97001-TC; 97110-TC; 97116-TC; 97530-TC; A4606; A6248; A6253; A6403; J0713; J0885; J0895; J1170; J1200; J7050; J7060; P9016-BL; Z7610

== ENCOUNTER 2017-03-21 16:04 | Inpatient (IN) | payer MEDICAID, MEDICARE ==
[2017-03-21] VITALS (22 sets, daily range): BP systolic 82–106; BP diastolic 46–76
[~2017-03-21] VITALS: Ht 160 cm; Wt 86.6 kg
[~2017-03-21 16:04] MED LIST changes: -DIPH25ST4 PO
--- NOTE | 2017-03-21 16:06 | NUR ---
niall [facility] dt low blood sugar. Patient is about to have his hd done today, last hd Saturday. Patient is aao4. No apparent distress. Respiration even and unlabored. Av fistula noted on courtney,. LEft groin noted with double lumen picc with good blood return. vss
--- NOTE | 2017-03-21 16:29 | NUR ---
CALLED [facility] PAGED RENEWALS REPRESENTATIVE DR ALEKSEY FOSTER
[2017-03-21] MEDS ORDERED: CINA30TA PO (16:38)
[2017-03-21] MEDS ORDERED: AMLO10TA2 PO (16:38)
[2017-03-21] MEDS ORDERED: CLON0.1T PO ×2 (16:38)
[2017-03-21] MEDS ORDERED: MAGN400O6 PO (16:38)
[2017-03-21] MEDS ORDERED: AMIN30LI4 PO (16:38)
[2017-03-21] MEDS ORDERED: ACET-868 PO (16:38)
[2017-03-21] MEDS ORDERED: BENA20TA2 PO (16:38)
[2017-03-21] MEDS ORDERED: HYDR2VIA3 IV (16:38)
[2017-03-21] MEDS ORDERED: CALC667C6 PO (16:38)
[2017-03-21] MEDS ORDERED: PANT40TA4 PO (16:38)
[2017-03-21] MEDS ORDERED: ASCO250T5 PO (16:38)
[2017-03-21] MEDS ORDERED: HYDR500C2 PO (16:38)
[2017-03-21] MEDS ORDERED: FOLI0.8T23 PO (16:38)
[2017-03-21] MEDS ORDERED: DIPH25CA6 PO (16:38)
[2017-03-21] MEDS ORDERED: NA P133E RC (16:38)
[2017-03-21] MEDS ORDERED: BISA10SU8 RC (16:38)
[2017-03-21] MEDS ORDERED: ACID1TAB12 PO (16:38)
[2017-03-21] MEDS ORDERED: GABA-532 PO (16:38)
--- NOTE | 2017-03-21 17:09 | NUR ---
Patient noted diaphoretic-- checked bd via finger stick-- 22mg/dl. Md reynoso made aware. New order received
--- NOTE | 2017-03-21 17:20 | NUR ---
bs rechecked after d50 amp--100mg/dl
--- NOTE | 2017-03-21 17:44 | NUR ---
SPOKE WITH WILL CRENSHAW FOR ICU ADMISSION
[2017-03-21 17:47] LABS: MEAN CORPUSCULAR HEMOGLOBIN 29 PG (26.0-33.0); MEAN CORPUSCULAR HGB CONC 35 g/dl (31.0-36.0); MEAN CORPUSCULAR VOLUME 84 fL (80-96); PLATELET COUNT (AUTO) 59 /CMM (150-450); RDW COEFFICIENT OF VARIATION 16.5 (11.5-15.0); RED BLOOD CELL COUNT(AUTO) 2.31 MIL/uL (4.5-6.0); WHITE BLOOD COUNT (AUTO) 11.3 K/uL (4.3-11.0)
[2017-03-21 17:53] LABS: HEMOGLOBIN 6.8 g/dL (13.5-17.5)
[2017-03-21 17:54] LABS: HEMATOCRIT 20 % (39-51)
[2017-03-21 18:06] LABS: TROPONIN I 0.042 ng/mL (0.00-0.056)
--- NOTE | 2017-03-21 18:15 | NUR ---
another d50/50ml given per md order bs 52
[2017-03-21 18:16] LABS: ALBUMIN 2.7 g/dL (3.4-5.0); BILIRUBIN,DIRECT 1.7 mg/dL (0.0-0.2); BILIRUBIN,TOTAL 2.3 mg/dL (0.2-1.0); CALCIUM, SERUM 9.4 mg/dL (8.5-10.1); TOTAL PROTEIN, SERUM 7.5 g/dL (6.4-8.2)
[2017-03-21 18:17] LABS: CREATININE 10.3 mg/dL (0.6-1.3); POTASSIUM 7.1 mmol/L (3.5-5.1)
[2017-03-21 18:23] LABS: LYMPHOCYTES % (MANUAL) 13 % (16-48); MONOCYTES % (MANUAL) 12 % (0-11.0); NEUTROPHILS % (MANUAL) 75 (42-76)
[2017-03-21 18:33] LABS: INR 1.13 (0.87-1.13); PROTHROMBIN TIME 12.2 SECS (9.5-12.7)
--- NOTE | 2017-03-21 18:34 | NUR ---
verified order from another D50 and calcium chloride with maverick Roper to give another dose
--- NOTE | 2017-03-21 18:55 | NUR ---
PATIENT TRANSFERRED TO ICU VIA ACLS PROTOCOL. MD JOHNSON SPOKE WITH ADMITTING PHYSICIAN. PT TO REEIVED HD IN UNIT.
--- NOTE | 2017-03-21 19:00 | NUR ---
INVESTOR RELATIONS ANALYST PT RECEIVED FROM ER VIA GURNEY WITH MONITOR. PT WAS ADMITTED INTO ICU FOR HYPOGLYCEMIA IN THE FIELD. PT RECEIVED D50 IN ER. D101/2NS INFUSING AT 75 ML/HR PER TLC CATH IN LEFT FEMORAL VEIN. PT LETHARGIC, RESPONDING WITH VIGOROUS STIMULATION. DOES NOT FOLLOW COMMANDS. 02 AT 2L NC WITH SPO2 99%.
--- NOTE | 2017-03-21 19:15 | NUR ---
BATCH ROLLER OPERATOR: PT REMAINS LETHARGIC. OPENS EYES TO PAINFUL STIMULI. BE=931 AT THIS TIME. LEFT GROIN TLC INFUSING D10 WT NS 77 MEQ AT 75ML/HR. PAGED FOR ADMISSION ORDERS.
[2017-03-21 19:36] LABS: ABG PCO2 66.2 mmHg (35.0-45.0); ABG PH 7.181 (7.350-7.450); ABG PO2 70.7 mmHg (75.0-100.0); AaDO2 50.8 mmHg; COHb 3.6 % (0.5-1.5); MetHb 1.3 % (0.0-1.5); O2Hb 83.7 % (94.0-97.0); SITE, ABG Right Radial; VENT MODE, BG Nasal Cannula
--- NOTE | 2017-03-21 20:00 | NUR ---
PRINTING PRESS MACHINE OPERATOR: DR. GREEN CALLED BACK AND MADE AWARE OF PT. ADMITTED IN THE ICU. UPDATED PT STATUS, LABS WT ABG WT ADMISSION ORDERS. NOTED AND CARRIED OUT.
--- NOTE | 2017-03-21 20:15 | NUR ---
SACK MAKER: CALLED AND NOTIFIED DR. NERI (PULMO. TELEVISION PRODUCTION TECHNICIAN) AND RELAYED ABG RESULTS. WT ORDER TO PLACE ON BIPAP WT SETTINGS: 15/03, R=20, FI02 KEEP 02 SAT. ABOVE 92%. ABG AT 2300 AND 0700 TOMORROW. NOTED AND CARRIED OUT. RT MADE AWARE AND WILL START AT FI02 OF 40% 02 SAT 94% AND ABOVE AT THIS TIME.
--- NOTE | 2017-03-21 20:35 | NUR ---
MOLDER FEEDER: HEMODIALYSIS DONE WT NO FLUID OUT.
--- NOTE | 2017-03-21 20:40 | NUR ---
PT PLACED ON BIPAP 18/8, RATE 20, FIO2 40% PER MD'S ORDER . FLOWER MARIN NOTIFIED.
--- NOTE | 2017-03-21 23:30 | NUR ---
AIR PURIFIER SERVICER: 02 SAT 96% AND ABOVE SINCE BIPAP STARTED. RT TITRATED FI02 TO 30% AND WILL HOLD ABG UNTIL AFTER BLOOD TRANSFUSION.
[2017-03-22] VITALS (35 sets, daily range): BP systolic 88–108; BP diastolic 40–76
[2017-03-22 01:47] LABS: ABG BASE EXCESS -2.9 mmol/L; ABG PCO2 63.8 mmHg (35.0-45.0); ABG PH 7.229 (7.350-7.450); ABG PO2 95.8 mmHg (75.0-100.0); AaDO2 43.1 mmHg; SITE, ABG Right Radial
--- NOTE | 2017-03-22 02:08 | NUR ---
KNITTED CLOTH EXAMINER: BS CHECKED WT RESULT OF 66. NO S/S OF HYPOGLYCEMIA AT THIS TIME. PT IS NOW ALERT AND AWAKE, ABLE TO MAKE NEEDS KNOWN. C/O BACK PAIN (03/07) AND ASK FOR DILAUDID AND BENADRYL. H/H=7.0/20.9 S/P 1 UNIT PRBC. PAGED . AWAITING TO CALL BACK.
--- NOTE | 2017-03-22 02:30 | NUR ---
AGRICULTURE LABORER: CALLED DR. GREEN AND RELAYED BLOOD SUGAR AND H/H RESULTS WELL PT's REQUEST FOR DILAUDID AND BENADRYL. MD CHEATHAM ORDERS FOR 1 UNIT PRBC, DC NPO AND CHANGE TO RENAL DIET, CONTINUE D5NS AT 75ML/HR, NO NEED TO GIVE D50 WHEN ASKED OR BLOOD SUGAR FREQUENT MONITORING.
--- NOTE | 2017-03-22 02:45 | NUR ---
CASE REPAIRER: PT REQUESTED SNACKS AND GIVEN TUNA SANDWICH WT APPLE JUICE. ABLE TO SWALLOW WELL. HOB ON HIGH FISHMAN'S. ASPIRATION PRECAUTION NOTED AT ALL TIMES. NO C/O PAIN OR EVIDENCE OF DISCOMFORT. WATCHING TV WHILE EATING. WILL GIVE PAIN MEDS NEEDED.
--- NOTE | 2017-03-22 02:50 | NUR ---
RF TEST ENGINEER: PLACED ON 2L 02 VIA NC WHILE GIVEN SNACKS. 02 SAT 96% AND ABOVE WITH NO ACUTE DISTRESS.
--- NOTE | 2017-03-22 03:15 | NUR ---
PROFESSOR OF ENVIRONMENTAL STUDIES: REFUSED BIPAP, NO ACUTE DISTRESS. 02 SAT 96% ON 2L 02 VIA NC. ATE 100% OF SNACKS GIVEN.
--- NOTE | 2017-03-22 03:45 | NUR ---
COMMUNITY SUPPORT ASSOCIATE: 2ND UNIT PRBC STARTED. PT BACK ON BIPAP AT 30% FIO2 WT NO ACUTE DISTRESS. GIVEN DILAUDID AND BENADRYL WT GOOD EFFECT.
--- NOTE | 2017-03-22 05:53 | NUR ---
ABG ORDER FOR 03/21/17 @ 23:00 AND 23:09 WERE CANCELLED, FLOWER HALE.
--- NOTE | 2017-03-22 06:45 | NUR ---
MANAGER RFID: 2ND UNIT PRBC TRANSFUSED WT NO ADVERSE REACTIONS. NO ACTIVE BLEEDING DURING THE SHIFT. PT REFUSED BIPAP AT THIS TIME. EXPLAINED RISKS AND BENEFITS BUT STILL REFUSED. PLACED ON 2L 02 VIA NC WT NO ACUTE DISTRESS. WILL ENDORSE TO DAY SHIFT FOR CONTINUITY OF CARE.
--- NOTE | 2017-03-22 07:14 | NUR ---
FUR IRONER NOTES RECEIVED PATIENT AOX3 , DENIES SOB AND DISCOMFORT AT THIS TIME , SPO2 OF 98% VIA 2LPM NC , SR 75 WITH BBB ON BEDSIDE MONITOR , ABDOMEN IS DISTENDED UPON PALPATION WITH HYPOACTIVE BOWEL SOUNDS , R CHEST WALL PORT A CATH IN PLACE , JAX AV FISTULA WITH BRUIT AND THRILL UPON PALPATION , L GROIN TLC PATENT AND INTACT WITH D5NS @ 75ML/HR INFUSING WELL , ALL NEEDS ATTENDED, BED ON LOW AND LOCKED POSITION , SIDE RAILS X2, CALL LIGHT WITHIN REACH , HOB @ 45 WILL CONTINUE TO MONITOR
[2017-03-22 08:39] LABS: HEMATOCRIT 22 % (39-51); HEMOGLOBIN 7.7 g/dL (13.5-17.5); MEAN CORPUSCULAR HEMOGLOBIN 30 PG (26.0-33.0); MEAN CORPUSCULAR HGB CONC 34 g/dl (31.0-36.0); MEAN CORPUSCULAR VOLUME 86 fL (80-96); PLATELET COUNT (AUTO) 66 /CMM (150-450); RDW COEFFICIENT OF VARIATION 17.4 (11.5-15.0); RED BLOOD CELL COUNT(AUTO) 2.59 MIL/uL (4.5-6.0); WHITE BLOOD COUNT (AUTO) 8.1 K/uL (4.3-11.0)
[2017-03-22 08:56] LABS: ALBUMIN 2.8 g/dL (3.4-5.0); BILIRUBIN,DIRECT 1.2 mg/dL (0.0-0.2); BILIRUBIN,TOTAL 1.7 mg/dL (0.2-1.0); CALCIUM, SERUM 9.7 mg/dL (8.5-10.1); MAGNESIUM 2.3 mg/dL (1.8-2.4); TOTAL PROTEIN, SERUM 7.5 g/dL (6.4-8.2)
[2017-03-22 09:23] LABS: POTASSIUM 6.3 mmol/L (3.5-5.1)
[2017-03-22 09:24] LABS: CREATININE 8.7 mg/dL (0.6-1.3)
[2017-03-22 09:25] LABS: PHOSPHORUS 8.6 mg/dL (2.5-4.9)
[2017-03-22 09:41] LABS: EOSINOPHILS % (MANUAL) 1 % (0-4); LYMPHOCYTES % (MANUAL) 24 % (16-48); MONOCYTES % (MANUAL) 10 % (0-11.0); NEUTROPHILS % (MANUAL) 65 (42-76)
--- NOTE | 2017-03-22 10:58 | NUR ---
PASSENGER AGENT NOTES SEEN AND EVALUATED BY DR SIMONS , DISCUSSED LABS , F/U HEMODIALYSIS FOR TODAY , PT NOTED WITH ABDOMINAL DISTENTION UPON PALPATION , S/P 2 UNITS PRBC DUE TO HEMOGLOBIN OF 6.8 , REPEAT H/H 7.7 WITH PLATELETS OF 66 , NOTIFIED PORT A CATH NOT WORKING UPON INSERTION OF HUBBER NEEDLE , INTERVENTIONAL RADIOLOGIST CALLED AND SPOKE WITH DR SIMONS . MEDICATION RECONCILIATION REVIEWED AND DONE BY .
--- NOTE | 2017-03-22 11:13 | NUR ---
TRANSPORT TRUCK DRIVER NOTES EXPLAINED THE RISK AND BENEFITS OF US GUIDED PARACENTESIS , PT IS AOX3 , ABLE TO FULL UNDERSTAND THE PROCEDURE EXPLAINED ,PT VERBALIZED UNDERSTANDING AND SIGNED THE CONSENT , WILL CONTINUE TO MONITOR
--- NOTE | 2017-03-22 11:15 | NUR ---
CHEMICAL MANAGER NOTES CALLED RADIOLOGY DEPARTMENT , SPOKE WITH SOHEILA , NOTIFIED PT SIGNED THE CONSENT FOR US GUIDED PARACENTESIS , PER SOHEILA FINANCIAL DEVELOPER IS DOING SOME PROCEDURE AT THIS TIME , LEFT A MESSAGE .
--- NOTE | 2017-03-22 11:45 | NUR ---
DATABASE ANALYST NOTES HD STARTED , PT AND V/S STABLE AT THIS TIME , AFEBRILE , WILL CONTINUE TO MONITOR
--- NOTE | 2017-03-22 12:11 | NUR ---
SVP RESEARCH AND STRATEGIC ANALYSIS NOTES CALLED DR SIMONS , VERIFIED IF HE WANTS TO CONTINUE IVF OF D5NS @ 75ML/HR . PER MD NEVILLE IT Addendum: 03/22/17 at 1227 by DESTIN CONRAD RN DISCUSSED PT CONSUMED 50-60 % OF HIS BREAKFAST , AOX3 ,
--- NOTE | 2017-03-22 14:47 | NUR ---
MANAGER LOCAL NOTES PT STABLE POST HD , TOLERATED WELL REMOVED 1.6L , V/S STABLE AFEBRILE , WILL ADMINISTER VANCOMYCIN POST HD , VANCOMYCIN THROUGH WITHIN THERAPEUTIC RANGE , WILL CONTINUE TO MONITOR
--- NOTE | 2017-03-22 15:09 | NUR ---
SOCIAL WORKER HEALTH SERVICES NOTES CALLED PHARMACY ,SPOKE WITH ELOISA , NOTIFIED THAT MEDICATION RECONCILIATION FAXED ALREADY . PHARMACIST AWARE
--- NOTE | 2017-03-22 16:12 | NUR ---
DRIVER/MERCHANDISER NOTES PT STABLE POST PARACENTESIS . 22OOML OUT , TOLERATED PROCEDURE WELL , V/S STABLE , LLQ PARACENTESIS SITE C/D/I WITH NO ACTIVE BLEEDING NOTED. VERIFIED WITH DR SIMONS IF HE WANTS DIAGNOSTIC PARACENTESIS , PER JUST DO THERAPEUTIC PARACENTESIS , Addendum: 03/22/17 at 1628 by DESTIN CONRAD RN DISCUSSED LABS , COAGULATIONS WITH DR RANDALL PRIOR TO PARACENTESIS , AWARE
[2017-03-22 16:27] LABS: ABG BASE EXCESS -0.2 mmol/L; ABG OXYGEN SATURATION 89.5 % (92.0-98.5); ABG PCO2 59.4 mmHg (35.0-45.0); ABG PH 7.276 (7.350-7.450); ABG PO2 62.3 mmHg (75.0-100.0); AaDO2 67.3 mmHg; MetHb 1.5 % (0.0-1.5); O2Hb 85.5 % (94.0-97.0); SITE, ABG Left Brachial; VENT MODE, BG NASAL CANNULA
--- NOTE | 2017-03-22 16:38 | NUR ---
SENIOR TRAINING AND DEVELOPMENT REP NOTES ABG RESULT RELAYED TO DR FRANCISCO , PER MD PLACE PT ON BIPAP WITH SETTINGS OF 18/5 R 10 FIO2 30% ,AND ABG IN AM . WILL CONTINUE TO MONITOR
--- NOTE | 2017-03-22 16:57 | NUR ---
PT PLACED ON BIPAP PER MD ORDER. BIPAP SETTINGS BELLOW ORDER: IPAP 18 EPAP 5 AMBUBAG @ BEDSIDE. Addendum: 03/22/17 at 1658 by SHERIF NEWMAN RT Amended: Links added.
--- NOTE | 2017-03-22 20:00 | NUR ---
HEAD PASTRY CHEF: OFF BIPAP AND PLACED ON 2L 02 VIA NC. ATE 100% OF DINNER AND TOLERATED WELL. NO ACUTE DISTRESS, NO S/S OF ASPIRATION. AFTER DINNER, GOOD ORAL CARE RENDERED. AND PLACED ON BIPAP WT SETTINGS ORDERED.
[2017-03-23] VITALS (33 sets, daily range): BP systolic 61–123; BP diastolic 20–82
[2017-03-23 04:44] LABS: HEMATOCRIT 23 % (39-51); HEMOGLOBIN 7.8 g/dL (13.5-17.5); MEAN CORPUSCULAR HEMOGLOBIN 30 PG (26.0-33.0); MEAN CORPUSCULAR HGB CONC 35 g/dl (31.0-36.0); MEAN CORPUSCULAR VOLUME 87 fL (80-96); PLATELET COUNT (AUTO) 57 /CMM (150-450); RDW COEFFICIENT OF VARIATION 17.2 (11.5-15.0); RED BLOOD CELL COUNT(AUTO) 2.61 MIL/uL (4.5-6.0); WHITE BLOOD COUNT (AUTO) 8.5 K/uL (4.3-11.0)
[2017-03-23 05:02] LABS: CREATININE 7.4 mg/dL (0.6-1.3); MAGNESIUM 2.2 mg/dL (1.8-2.4); PHOSPHORUS 7.8 mg/dL (2.5-4.9); POTASSIUM 5.3 mmol/L (3.5-5.1)
[2017-03-23 05:33] LABS: LYMPHOCYTES % (MANUAL) 23 % (16-48); METAMYELOCYTES % 1 % (0-0); MONOCYTES % (MANUAL) 10 % (0-11.0); NEUTROPHILS % (MANUAL) 66 (42-76)
--- NOTE | 2017-03-23 06:30 | NUR ---
DEPOSITION OPERATOR: SEEN AND EXAMINED BY DR. HENDRICKS. AWAITING FURTHER ORDERS.
--- NOTE | 2017-03-23 06:45 | NUR ---
VICE PRESIDENT SALES: NO SIGNIFICANT CM DURING THE SHIFT. REMAINED A/O X 3. HELD ALL BP MEDS D/T SBP IN THE 90s TO LOW 100s. TOLERATING BIPAP SETTINGS ORDERED WT NO ACUTE DISTRESS. ON S/P PARACENTESIS WT NO ACTIVE BLEEDING ON LEFT LOWER ABDOMEN. NO S/S OF HYPOGLYCEMIA. ALL NEEDS MET. SAFETY PRECAUTION NOTED.
[2017-03-23 12:09] LABS: ABG BASE EXCESS 0.2 mmol/L; ABG OXYGEN SATURATION 81.9 % (92.0-98.5); ABG PCO2 59.3 mmHg (35.0-45.0); ABG PO2 49.2 mmHg (75.0-100.0); COHb 3.1 % (0.5-1.5); MetHb 0.8 % (0.0-1.5); O2Hb 78.7 % (94.0-97.0); SITE, ABG Right Radial
[2017-03-23 12:29] LABS: ABG BASE EXCESS -0.4 mmol/L; ABG OXYGEN SATURATION 85.2 % (92.0-98.5); ABG PCO2 56.7 mmHg (35.0-45.0); ABG PH 7.287 (7.350-7.450); ABG PO2 54.4 mmHg (75.0-100.0); AaDO2 92.9 mmHg; COHb 2.7 % (0.5-1.5); MetHb 0.6 % (0.0-1.5); O2Hb 82.4 % (94.0-97.0); SITE, ABG Right Radial
--- NOTE | 2017-03-23 18:11 | NUR ---
CENTRAL STERILIZATION TECHNICIAN; NOTED PT HAVING EPISTAXIS. ADVISED PT TO APPLY SOME PRESSURE TO SITE. DR. HOLDER MADE AWARE. NEW ORDERS GIVEN AND PLACED. WILL F/U WITH PHARMACY.
[2017-03-24] VITALS (36 sets, daily range): BP systolic 90–136; BP diastolic 42–80
--- NOTE | 2017-03-24 00:15 | NUR ---
FINE ARTS INSTRUCTOR - PT. STARTED EXPERIENCING ANOTHER EPISTAXIS EPISODE, HOWEVER PT. WAS SPITTING UP THE BLOOD. PT. STATED IT IS FROM HIS NOSE, BUT HE IS SWALLOWING THE BLOOD. PREVIOUS PACKING FROM DAYSHIFT WAS REMOVED BY PT. P/C TO Keila SUMMERS, SONAL RN TOOK CALL & WAS GIVEN STATUS UPDATE. RN PHONED FOR A RHINO ROCKET VIA PREVIOUS ORDERS BY DR. SHANAE VALDOVINOS. STILL AWAITING Keila ZAMUDIO'S INPUT. AT START OF SHIFT, PT. WAS TRANSFERRED FROM RM#[id number] TO RM. #[id number]. PT. WAS IN GEN. PAIN. & REQUESTED PAIN MEDS. DILAUDID 0.5MG/IVP & BENADRYL 25MG/IVP FOR PRURITIS WAS ADM. AT 21:14 PM. WILL CONT. POC.
--- NOTE | 2017-03-24 01:25 | NUR ---
BREWER HELPER - AT PT'S REQUEST, DILAUDID 0.5MG/IVP WAS ADM. FOR GENERALIZED PAIN LEVEL AT "9". CONT. POC.
--- NOTE | 2017-03-24 01:30 | NUR ---
REPORTING MANAGER - DR. HERRERA FROM [facility] HERE TO ASSESS EPISTAXIS SITUATION. DR. HERRERA ADM. AFRIN INTO RT. NARE OF PT. THEN, SILVER NITRATE WAS ADM. TO CAUTERIZE BLEEDING. BLEEDING SEEMED TO SUBSIDE. DR. HERRERA LEFT & STATED THAT HE WILL BE BACK TO ASSESS PT. PT. HAS HAD "LITTLE NOSEBLEEDS" SINCE MD LEFT. CONT. POC.
--- NOTE | 2017-03-24 02:45 | NUR ---
CONICAL MIXER DF PT MEDICATED WITH PRN BENADRYL 25MG IVP PT REQUESTED MED PRN ITCHY SKIN.REPOSITIONED FOR COMFORT,VSS,A/OX4.
--- NOTE | 2017-03-24 03:00 | NUR ---
ORDER ANALYST - DR. HERRERA FROM [facility].. RETURNED TO RE-ASSESS PT'S EPISTAXIS. MD USED SILVER NITRATE AGAIN TO STOP BLEEDING. A COMPLETE BEDBATH WAS ADM. AT 2AM. ORAL & GENEVA CARE ADM. PT. HAD LARGE BM ON BSC. 2 RN ASSIST W/BSC. PT. WAS PLACED BACK TO BED W/O INCIDENT. CONT. POC.
[2017-03-24 04:38] LABS: EOSINOPHILS # (AUTO) 0.2 /CMM (0.0-0.7); EOSINOPHILS % (AUTO) 2.1 % (0.0-6.0); LYMPHOCYTES # (AUTO) 1.9 /CMM (0.8-4.8); LYMPHOCYTES % (AUTO) 20.1 % (20.0-44.0); MEAN CORPUSCULAR HEMOGLOBIN 29 PG (26.0-33.0); MEAN CORPUSCULAR HGB CONC 34 g/dl (31.0-36.0); MEAN CORPUSCULAR VOLUME 86 fL (80-96); MONOCYTES # (AUTO) 1.2 /CMM (0.1-1.30); MONOCYTES % (AUTO) 12.7 % (2.0-12.0); NEUTROPHILS % (AUTO) 65.1 % (43.0-81.0); RDW COEFFICIENT OF VARIATION 17.7 (11.5-15.0); RED BLOOD CELL COUNT(AUTO) 2.07 MIL/uL (4.5-6.0); WHITE BLOOD COUNT (AUTO) 9.3 K/uL (4.3-11.0)
[2017-03-24 04:40] LABS: HEMATOCRIT 18 % (39-51); PLATELET COUNT (AUTO) 48 /CMM (150-450)
[2017-03-24 04:48] LABS: ALBUMIN 2.4 g/dL (3.4-5.0); BILIRUBIN,TOTAL 1.3 mg/dL (0.2-1.0); CALCIUM, SERUM 8.5 mg/dL (8.5-10.1); MAGNESIUM 2.1 mg/dL (1.8-2.4); PHOSPHORUS 7.8 mg/dL (2.5-4.9); POTASSIUM 6.1 mmol/L (3.5-5.1); TOTAL PROTEIN, SERUM 6.7 g/dL (6.4-8.2)
[2017-03-24 04:59] LABS: CREATININE 8.1 mg/dL (0.6-1.3)
--- NOTE | 2017-03-24 05:08 | NUR ---
BPO SPECIALIST - LAB PHONED BACK W/CRITICAL RESULTS. H&H = 01/13. PLTS ARE 48. DR. HORVATH'S GROUP PHONED AT 04:45 AM. AWAITING PHONE CALL BACK.
[2017-03-24 05:16] LABS: EOSINOPHILS % (MANUAL) 2 % (0-4); LYMPHOCYTES % (MANUAL) 24 % (16-48); MONOCYTES % (MANUAL) 8 % (0-11.0); NEUTROPHILS % (MANUAL) 66 (42-76)
--- NOTE | 2017-03-24 07:30 | NUR ---
STAFF ELECTRONIC WARFARE OFFICER - DR. HORVATH PHONED BACK W/ORDERS. ONE UNIT OF PRBC'S, ONE PLATELET PACK & 20 MCG'S OF DDAVP ORDERED. PT.IS STILL HAVING EPISTAXIS EPISODES, BUT NOT MUCH MIDNIGHT. DILAUDID 0.5MG IVP GIVEN AT PRESENT FOR GEN. PAIN. PT. REPOSITIONED. CONT. POC.
--- NOTE | 2017-03-24 08:20 | NUR ---
ICU/RN - Notes Pt assisted to bedside commode. Bowel movement noted to be dark brown to black bloody, soft formed to liquid. Stool collected and sent to lab for OB. As pt on commode, worsening epistaxis as pt bearing down and applying pressure. Once pt assisted back to bed, epistaxis significantly decreased, but still bleeding intermittently.
--- NOTE | 2017-03-24 09:30 | NUR ---
ICU/RN - Notes Charge nurse Lucy made aware of pt's epistaxis. Dr Tolliver made aware of continued nose bleed and that pt may need ENT consult.
--- NOTE | 2017-03-24 10:15 | NUR ---
ICU/RN - Notes 1 unit of PRBC verified with Hemodialysis nurse and administered with hemodialysis. VSS. Addendum: 03/24/17 at 1733 by LITZY SHEN RN No adverse reactions noted.
--- NOTE | 2017-03-24 11:30 | NUR ---
ICU/RN - Notes 1 unit of platelet verified with Hemodialysis nurse and administered with hemodialysis. VSS. Addendum: 03/24/17 at 1734 by LITZY SHEN RN No adverse reactions noted.
--- NOTE | 2017-03-24 12:20 | NUR ---
ICU/RN - Notes Hemodialysis completed with 3000 mL output. Vital signs stable.
--- NOTE | 2017-03-24 14:52 | NUR ---
ICU/RN - Notes Dr Acosta at bedside for evaluation. MD made aware of blood in stool and epistaxis with no new orders at this time.
--- NOTE | 2017-03-24 15:15 | NUR ---
ICU/RN - Notes Dr Acosta and Dr Mendosa made aware of pt's Hgb 5.8 with new orders received to transfuse 2 units of PRBCs, H/H every 6 hours, and standing order to transfuse 1 unit PRBC if Hgb <7 and 2 units PRB if Hgb <6.
[2017-03-24 15:34] LABS: BASOPHILS % (AUTO) 0.2 % (0.0-2.0); EOSINOPHILS # (AUTO) 0.2 /CMM (0.0-0.7); EOSINOPHILS % (AUTO) 2.2 % (0.0-6.0); LYMPHOCYTES # (AUTO) 1.2 /CMM (0.8-4.8); LYMPHOCYTES % (AUTO) 15.3 % (20.0-44.0); MEAN CORPUSCULAR HEMOGLOBIN 29 PG (26.0-33.0); MEAN CORPUSCULAR HGB CONC 34 g/dl (31.0-36.0); MEAN CORPUSCULAR VOLUME 86 fL (80-96); MONOCYTES % (AUTO) 12.8 % (2.0-12.0); NEUTROPHILS # (AUTO) 5.7 /CMM (1.8-8.9); NEUTROPHILS % (AUTO) 69.5 % (43.0-81.0); PLATELET COUNT (AUTO) 67 /CMM (150-450); RDW COEFFICIENT OF VARIATION 16.6 (11.5-15.0); WHITE BLOOD COUNT (AUTO) 8.1 K/uL (4.3-11.0)
[2017-03-24 15:39] LABS: RED BLOOD CELL COUNT(AUTO) 1.95 MIL/uL (4.5-6.0)
[2017-03-24 15:41] LABS: HEMATOCRIT 17 % (39-51); HEMOGLOBIN 5.7 g/dL (13.5-17.5)
--- NOTE | 2017-03-24 16:02 | NUR ---
ICU/RN - Notes Pt complains of lower back pain on pain scale8 out of 10 and itchiness. Administered Dilaudid 0.5 mg IVP and Benadryl 25mg IVP as ordered. Comfort measures in place. Will reassess pt accordingly.
--- NOTE | 2017-03-24 16:25 | NUR ---
ICU/RN - Notes Dr Miller (ENT) called and given report regarding pt's epistaxis and drop in H/H. Per MD cannot see patient until tomorrow morning. Nursing lieutenant shift supervisor made aware. Per Nursing Install And Repair Technician, she will talk to ER MD into place rhino rocket for patient.
--- NOTE | 2017-03-24 16:37 | NUR ---
ICU/RN - ROMERO Davila CYBER CRIME INVESTIGATOR at bedside for placement of Rhino Rocket to right nare. Per CYBER CRIME INVESTIGATOR keep in place for 24-8 hours. Pt tolerated procedure well. Addendum: 03/24/17 at 1734 by LITZY SHEN RN 24-48 hours
[2017-03-24 16:49] LABS: EOSINOPHILS % (MANUAL) 1 % (0-4); LYMPHOCYTES % (MANUAL) 12 % (16-48); MONOCYTES % (MANUAL) 10 % (0-11.0); NEUTROPHILS % (MANUAL) 76 (42-76); REACTIVE LYMPHOCYTES 1 % (0-0)
--- NOTE | 2017-03-24 17:33 | NUR ---
ICU/RN - Notes PRBC transfusion infusing well. VSS. Addendum: 03/24/17 at 1733 by LITZY SHEN RN No adverse reactions noted.
[2017-03-24 21:34] LABS: HEMOGLOBIN 6.8 g/dL (13.5-17.5)
[2017-03-25] VITALS (42 sets, daily range): BP systolic 86–133; BP diastolic 41–99
--- NOTE | 2017-03-25 01:00 | NUR ---
SCALLOP RAKER - REC'D PT.DOZING INTERMITTENTLY, DROWSY, BUT A&OX3. PT. HAD A UNIT OF PRBC'S INFUSING W/O INCIDENCE. H&H DRAWN AT 21:00 SHOWED LEVELS AT 6.8/20. MANA-KEENAN PHONED CRITICAL RESULT. DOCUMENTED. #2-PRBC FROM DAYSHIFT ORDER STARTED AT 21:45 & FINISHED W/O INCIDENCE. SINCE HGB WAS UNDER 7, ANOTHER UNIT WAS STARTED BY RN AT 01:09. F/U H&H WILL BE DONE W/A.M. LABS. RHINO ROCKET INTACT IN RT. NARE. NO EPISTAXIS NOTED FOR TONIGHT. PT. C/O PAIN LEVEL AT 9 AT 21:00. DILAUDID 0.5MG IVP ADM. FOR COMFORT. BENADRYL 25MG IVP WAS ADM. AT 23:35 AT PT'S REQUEST FOR PRURITUS. GOOD BRUIT/THRILL TO RUE FISTULA, ALL IVF'S ARE INFUSING VIA RT.FEMORAL TLC-ALL PORTS PATENT TO FLUSH. RSC PORT A CATH IS NOT WORKING. AFEBRILE. ANURIC. PT.HAS GOOD APPETITE. + ASCITES. PT.IS ON O2/3L/NC. HEART MONITOR SHOWS SR/BBB W/SBP'S WNL. ALL PULSES PALPABLE X 4 EXT. CONT.POC.
[2017-03-25 04:08] LABS: BASOPHILS % (AUTO) 0.5 % (0.0-2.0); EOSINOPHILS # (AUTO) 0.2 /CMM (0.0-0.7); EOSINOPHILS % (AUTO) 2.4 % (0.0-6.0); HEMATOCRIT 23 % (39-51); LYMPHOCYTES # (AUTO) 1.6 /CMM (0.8-4.8); LYMPHOCYTES % (AUTO) 21.1 % (20.0-44.0); MEAN CORPUSCULAR HEMOGLOBIN 30 PG (26.0-33.0); MEAN CORPUSCULAR HGB CONC 34 g/dl (31.0-36.0); MEAN CORPUSCULAR VOLUME 86 fL (80-96); MONOCYTES # (AUTO) 0.9 /CMM (0.1-1.30); MONOCYTES % (AUTO) 11.5 % (2.0-12.0); NEUTROPHILS # (AUTO) 4.8 /CMM (1.8-8.9); NEUTROPHILS % (AUTO) 64.5 % (43.0-81.0); PLATELET COUNT (AUTO) 53 /CMM (150-450); RDW COEFFICIENT OF VARIATION 16.7 (11.5-15.0); WHITE BLOOD COUNT (AUTO) 7.5 K/uL (4.3-11.0)
[2017-03-25 04:23] LABS: ALBUMIN 2.3 g/dL (3.4-5.0); BILIRUBIN,TOTAL 1.1 mg/dL (0.2-1.0); CALCIUM, SERUM 8.1 mg/dL (8.5-10.1); CREATININE 6.5 mg/dL (0.6-1.3); MAGNESIUM 1.9 mg/dL (1.8-2.4); POTASSIUM 4.8 mmol/L (3.5-5.1); TOTAL PROTEIN, SERUM 6.5 g/dL (6.4-8.2)
[2017-03-25 05:17] LABS: EOSINOPHILS % (MANUAL) 2 % (0-4); LYMPHOCYTES % (MANUAL) 23 % (16-48); MONOCYTES % (MANUAL) 8 % (0-11.0); NEUTROPHILS % (MANUAL) 67 (42-76)
--- NOTE | 2017-03-25 06:51 | NUR ---
VERIFIER - AM LABS SHOW H&H AT 8.0/23. THE ONLY CRITICAL LAB WAS BUN AT 97. DOCUMENTED. PT. IS RESTING W/EYES CLOSED. PT. REFUSED BEDBATH. HE SAID, "LATER".
--- NOTE | 2017-03-25 07:35 | NUR ---
INSIDE SALES SPECIALIST RECEIVED PATIENT FROM THE PREVIOUS SHIFT. PATIENT IS IN BED. RESTING COMFORTABLY. NO ACUTE DISTRESS. ABLE TO VERBALIZE NEEDS. AFEBRILE. SINUS RHYTHM ON MONITOR. ON 3L NC. ALERT AND ORIENTED X 3. WILL CONTINUE TO MONITOR AND PROVIDE CARE.
[2017-03-25 09:20] LABS: ABG BASE EXCESS -0.8 mmol/L; ABG OXYGEN SATURATION 95.8 % (92.0-98.5); ABG PCO2 59.9 mmHg (35.0-45.0); ABG PH 7.266 (7.350-7.450); ABG PO2 97.7 mmHg (75.0-100.0); AaDO2 89.5 mmHg; COHb 1.9 % (0.5-1.5); MetHb 0.8 % (0.0-1.5); O2Hb 93.2 % (94.0-97.0); SITE, ABG Left Brachial; VENT MODE, BG NASAL CANNULA
--- NOTE | 2017-03-25 13:48 | NUR ---
NO PARACENTESIS PER RADIOLOGIST DR RANDALL VERY LITTLE ASCITES AND RISK WITH LOW PLATELETS OUTWEIGH BENEFITS
--- NOTE | 2017-03-25 13:53 | NUR ---
DR Nhi SIMONS NOTIFIED OF ABOVE
--- NOTE | 2017-03-25 18:56 | NUR ---
OPERATING ROOM SURGICAL TECHNOLOGIST DURING DIALYSIS PATIENT DEVELOPED SUDDEN CHEST PAIN. NON RADIATING. INTENSITY 03/07. DIALYSIS NURSE STOPPED DIALYSIS. TROPONIN AND EKG STAT ORDERED. DR. GREEN PAGED FOR MEDICAL ADVICE. AWAITING CALL BACK.
[2017-03-25 19:56] LABS: HEMOGLOBIN 8.5 g/dL (13.5-17.5)
--- NOTE | 2017-03-25 20:19 | NUR ---
TABLE ATTENDANT: RECEIVED PT FROM PREVIOUS SHIFT, JUST HAD DIALYSIS 4 L OUT, PT IS AAO X4, DENIED CHEST PAIN AT THIS TIME, ON 3 L NC SATURATING 98% WITHOUT DISTRESS. PER PREVIOUS NURSE HAD EPISODES OF CHEST PAIN DURING DIALYSIS, STAT EKG, TROPONIN DONE, EKG REVEALED SINUS ARRHYTHMIA. TROPONIN IS NOT CRITICAL. KEEP MONITOR. RIGHT UPPER ARM AV SHUNT. RIGHT SUBCLAVIAN BLANCA CATH INTACT. LEFT FEMORAL TLC NOTED. PT JUST FINISHED DINNER, 100% EAT. BP STABLE. C/O CHRONIC PAIN SYNDROME, INTERMITTENTLY DOZING FOR DILAUDID 0.5 MG IV Q4H, NEXT WILL BE AT 5. SAFETY PRECAUTION PLACED. KEEP MONITORING....
--- NOTE | 2017-03-25 23:44 | NUR ---
PT PLACED ON NOC BIPAP.
[2017-03-26] VITALS (46 sets, daily range): BP systolic 54–133; BP diastolic 32–101
--- NOTE | 2017-03-26 00:14 | NUR ---
PT REMOVED BIPAP
[2017-03-26 05:18] LABS: CALCIUM, SERUM 8.6 mg/dL (8.5-10.1); POTASSIUM 4.3 mmol/L (3.5-5.1)
[2017-03-26 07:24] LABS: BASOPHILS % (AUTO) 0.6 % (0.0-2.0); EOSINOPHILS # (AUTO) 0.3 /CMM (0.0-0.7); EOSINOPHILS % (AUTO) 3.4 % (0.0-6.0); HEMATOCRIT 22 % (39-51); HEMOGLOBIN 7.3 g/dL (13.5-17.5); LYMPHOCYTES # (AUTO) 1.5 /CMM (0.8-4.8); LYMPHOCYTES % (AUTO) 18.5 % (20.0-44.0); MEAN CORPUSCULAR HEMOGLOBIN 29 PG (26.0-33.0); MEAN CORPUSCULAR HGB CONC 34 g/dl (31.0-36.0); MEAN CORPUSCULAR VOLUME 86 fL (80-96); MONOCYTES # (AUTO) 0.9 /CMM (0.1-1.30); MONOCYTES % (AUTO) 10.8 % (2.0-12.0); NEUTROPHILS # (AUTO) 5.5 /CMM (1.8-8.9); NEUTROPHILS % (AUTO) 66.7 % (43.0-81.0); RDW COEFFICIENT OF VARIATION 16.6 (11.5-15.0); RED BLOOD CELL COUNT(AUTO) 2.53 MIL/uL (4.5-6.0); WHITE BLOOD COUNT (AUTO) 8.2 K/uL (4.3-11.0)
--- NOTE | 2017-03-26 07:26 | NUR ---
MEMBERSHIP SECRETARY RECEIVED PATIENT FROM THE PREVIOUS SHIFT. PATIENT IS IN BED. RESTING COMFORTABLY. NO ACUTE DISTRESS. MINIMAL BLEEDING NOTED FROM RIGHT UPPER ARM AV FISTULA. DRESSING REINFORCED. ABLE TO VERBALIZE NEEDS. NORMAL BP. 3L NC FOR O2 SUPPORT. TURNED AND REPOSITIONED FOR COMFORT AND WOUND PREVENTION. WILL CONTINUE TO MONITOR AND PROVIDE CARE.
[2017-03-26 08:06] LABS: PLATELET COUNT (AUTO) 38 /CMM (150-450)
[2017-03-26 08:11] LABS: BAND % (MANUAL) 3 % (0.0-5.0); EOSINOPHILS % (MANUAL) 3 % (0-4); LYMPHOCYTES % (MANUAL) 24 % (16-48); MONOCYTES % (MANUAL) 9 % (0-11.0); NEUTROPHILS % (MANUAL) 61 (42-76)
--- NOTE | 2017-03-26 17:27 | NUR ---
TAIL EDGER REPORT GIVEN TO RECEIVING RN FOR CONTINUITY OF CARE. TRANSFERRED TO MED SURG.
--- NOTE | 2017-03-26 17:30 | NUR ---
MS RN NOTES: REC'D PT FROM ICT SUPPORT AND TEST ENGINEERS [place]. PT TRANSFERRED TO ROOM 115/1 VIA BED. PT IS A/O X3, NOT IN ANY FORM OF DISTRESS, ABLE TO MAKE NEEDS KNOWN. ON ROOM AIR, DENIES ANY SOB. JAX AV SHUNT, NOTED THRILL & BRUIT, NO BLEEDING NOTED. LEFT FEMORAL 3 LUMEN CATH, PATENT & INTACT W/ NO S/SX OF INFECTION / INFILTRATION NOTED. R SUBCLAVIAN PORT-A-CATH IN PLACED BUT PER RN NOT FUNCTIONING. PT ORIENTED TO ROOM. PROVIDED COMFORT & SAFETY MEASURES. CALL LIGHT PLACED W/IN REACH. BED KEPT LOW & IN LOCKED POS. WILL CONTINUE TO MONITOR.
[2017-03-26 18:13] LABS: HEMOGLOBIN 7.8 g/dL (13.5-17.5)
--- NOTE | 2017-03-26 19:00 | NUR ---
MS RN CLOSING NOTES: NO ACUTE CHANGES NOTED W/IN SHIFT. PT NOT IN ANY DISTRESS. H/H RESULT STILL PENDING. KEPT WELL RESTED. NEEDS ATTENDED. CALL LIGHT W/IN REACH. BED KEPT LOW & IN LOCKED POS. ENDORSED TO PM RN FOR CM.
--- NOTE | 2017-03-26 19:35 | NUR ---
RN MS INITIAL NOTE PT RECEIVED IN NO ACUTE DISTRESS. A/O X3 AND ABLE TO MAKE NEEDS KNOWN. PT CURRENTLY HAS EPISTAXIS BEING CONTROLLED BY SELF WITH GAUZE. PT HAS A JAX AV SHUNT, LEFT FEMORAL TLC, R SC PORTOCATH (NOT PATENT). PT HAD DIALYSIS TODAY WITH 1700CC REMOVED. SAFETY AND COMFORT MEASURES TO BE ENSURED. WILL CONTINUE TO MONITOR FOR CHANGES.
--- NOTE | 2017-03-26 19:49 | NUR ---
H/H CAME BACK WITH HBG OF 7.8 - WILL NOT INFUSE BLOOD DUE TO ORDER OF 1 UNIT TO BE INFUSED IF LESS THAN 7 AND 2 UNITS IF LESS THAN 8
--- NOTE | 2017-03-26 22:52 | NUR ---
RN NOTE PT REQUESTED BENADRYL AND DILAUDID. GIVEN AT [phone]. WILL MONITOR FOR CHANGES.
[2017-03-27 04:00] VITALS: BP 104/56
[2017-03-27 04:52] VITALS: BP 104/56
[2017-03-27 06:32] LABS: BASOPHILS % (AUTO) 0.2 % (0.0-2.0); EOSINOPHILS # (AUTO) 0.3 /CMM (0.0-0.7); EOSINOPHILS % (AUTO) 4.5 % (0.0-6.0); HEMATOCRIT 23 % (39-51); HEMOGLOBIN 7.8 g/dL (13.5-17.5); LYMPHOCYTES # (AUTO) 1.2 /CMM (0.8-4.8); LYMPHOCYTES % (AUTO) 15.2 % (20.0-44.0); MEAN CORPUSCULAR HEMOGLOBIN 30 PG (26.0-33.0); MEAN CORPUSCULAR HGB CONC 34 g/dl (31.0-36.0); MEAN CORPUSCULAR VOLUME 87 fL (80-96); MONOCYTES # (AUTO) 0.6 /CMM (0.1-1.30); MONOCYTES % (AUTO) 8.5 % (2.0-12.0); NEUTROPHILS # (AUTO) 5.4 /CMM (1.8-8.9); NEUTROPHILS % (AUTO) 71.6 % (43.0-81.0); RDW COEFFICIENT OF VARIATION 16.5 (11.5-15.0); RED BLOOD CELL COUNT(AUTO) 2.64 MIL/uL (4.5-6.0); WHITE BLOOD COUNT (AUTO) 7.6 K/uL (4.3-11.0)
[2017-03-27 06:43] LABS: CALCIUM, SERUM 8.8 mg/dL (8.5-10.1); CREATININE 5.6 mg/dL (0.6-1.3); POTASSIUM 4.4 mmol/L (3.5-5.1)
[2017-03-27 06:46] LABS: PLATELET COUNT (AUTO) 34 /CMM (150-450)
[2017-03-27 07:43] LABS: EOSINOPHILS % (MANUAL) 7 % (0-4); LYMPHOCYTES % (MANUAL) 19 % (16-48); MONOCYTES % (MANUAL) 8 % (0-11.0); NEUTROPHILS % (MANUAL) 66 (42-76)
--- NOTE | 2017-03-27 07:57 | NUR ---
RN INITIAL NOTE REPORT RECEIVED FROM KASEY PM SHIFT FOR CM. PT A/O X3. PT MS. IV JAX AV SHUNT FOR HD, L FEMORAL TLC PATENT AND INTACT, R PORTACATH. PT AWAITING EGD PT NPO. ALL SAFETY MEASURES IN PLACE. WILL CONTINUE TO MONITOR CLOSELY.
[2017-03-27 08:00] VITALS: BP 138/63
[2017-03-27 09:07] VITALS: BP 138/63
--- NOTE | 2017-03-27 11:34 | NUR ---
RN NOTE PT S/P EGD UNABLE TO GIVEN MORNING MEDS PT ON ANAESTHESIA. PT BP 136/81 HR 78. WILL CONTINUE TO MONITOR PT.
[2017-03-27 16:00] VITALS: BP 121/77
--- NOTE | 2017-03-27 17:17 | NUR ---
RN NOTE PT RECEIVING HD HOLDING BP MEDICATION PER RENNY HD NURSE.
--- NOTE | 2017-03-27 19:19 | NUR ---
RN CLOSING NOTE REPORT GIVEN PM SHIFT FOR CM. PT A/O X3. PT MS. IV JAX AV SHUNT FOR HD, L FEMORAL TLC PATENT AND INTACT, R PORTACATH. ALL SAFETY MEASURES IN PLACE. S/P HD 5L OUT. PT CLEAN AND DRY. ALL ORDERS CARRIED OUT.
--- NOTE | 2017-03-27 19:30 | NUR ---
RN NOTES RECEIVED PATIENT IN BED AWAKE, ALERT/ORIENTED X3. VERBALLY RESPONSIVE. RESPIRATION IS EVEN AND UNLABORED. NO SOB NOTED. NO ACUTE DISTRESS NOTED. ON 02 @ 4LPM VIA NC, OXYGEN SATURATION IS 100 % . ON HIGH RENAL DIET BEBE WELL. LEFT FEMORAL TRIPLE LUMEN CATHETER PATENT AND INTACT, NO INFILTRATION NOTED NOR S/S OF INFECTION NOTED. JAX AV SHUNT WITH NO BLEEDING AT THIS TIME. SAFETY PRECAUTIONS OBSERVED. CALL LIGHT WITH IN REACH. BED ON LOWEST LEVEL. ALL NEEDS ATTENDED AND MET. WILL CONT TO MONITOR.
[2017-03-27 20:00] VITALS: BP 112/61
--- NOTE | 2017-03-28 02:35 | NUR ---
PT RESTING COMFORTABLY AT THIS TIME, AROUSES EASILY. NO DISTRESS, NO SOB NOTED. RESPIRATION IS EVEN AND UNLABORED. NO C/O PAIN OR DISCOMFORT AT THIS TIME. ALL NEEDS ATTENDED. CALL LIGHT WITHIN REACH. SAFETY PRECAUTIONS OBSERVED. WILL CONT TO MONITOR.
[2017-03-28 04:00] VITALS: BP 115/77
--- NOTE | 2017-03-28 06:29 | NUR ---
RN NOTES PATIENT IN BED ASLEEP AT THIS TIME, AROUSES EASILY, ALERT/ORIENTED X3. VERBALLY RESPONSIVE. RESPIRATION IS EVEN AND UNLABORED. NO SOB NOTED. NO ACUTE DISTRESS NOTED. ON 02 @ 3LPM VIA NC, OXYGEN SATURATION IS 99 % . ON HIGH RENAL DIET BEBE WELL. LEFT FEMORAL TRIPLE LUMEN CATHETER PATENT AND INTACT, NO INFILTRATION NOTED NOR S/S OF INFECTION NOTED. JAX AV SHUNT WITH NO BLEEDING AT THIS TIME. SAFETY PRECAUTIONS OBSERVED. CALL LIGHT WITH IN REACH. BED ON LOWEST LEVEL. NO C/O PAIN OR DISCOMFORT AT THIS TIME. ALL NEEDS ATTENDED AND MET. WILL ENDORSE TO NEXT SHIFT FOR CM.
[2017-03-28 06:50] LABS: BASOPHILS % (AUTO) 0.3 % (0.0-2.0); EOSINOPHILS # (AUTO) 0.3 /CMM (0.0-0.7); EOSINOPHILS % (AUTO) 4.4 % (0.0-6.0); HEMATOCRIT 22 % (39-51); HEMOGLOBIN 7.5 g/dL (13.5-17.5); LYMPHOCYTES # (AUTO) 1.2 /CMM (0.8-4.8); LYMPHOCYTES % (AUTO) 16.6 % (20.0-44.0); MEAN CORPUSCULAR HEMOGLOBIN 30 PG (26.0-33.0); MEAN CORPUSCULAR HGB CONC 34 g/dl (31.0-36.0); MEAN CORPUSCULAR VOLUME 86 fL (80-96); MONOCYTES # (AUTO) 0.7 /CMM (0.1-1.30); MONOCYTES % (AUTO) 10.1 % (2.0-12.0); NEUTROPHILS % (AUTO) 68.6 % (43.0-81.0); RDW COEFFICIENT OF VARIATION 17.1 (11.5-15.0); RED BLOOD CELL COUNT(AUTO) 2.55 MIL/uL (4.5-6.0); WHITE BLOOD COUNT (AUTO) 7.3 K/uL (4.3-11.0)
[2017-03-28 07:08] LABS: ALBUMIN 2.5 g/dL (3.4-5.0); CALCIUM, SERUM 8.7 mg/dL (8.5-10.1); CREATININE 5.3 mg/dL (0.6-1.3); PHOSPHORUS 5.8 mg/dL (2.5-4.9); POTASSIUM 4.3 mmol/L (3.5-5.1); TOTAL PROTEIN, SERUM 6.7 g/dL (6.4-8.2)
[2017-03-28 07:13] LABS: PLATELET COUNT (AUTO) 30 /CMM (150-450)
--- NOTE | 2017-03-28 07:20 | NUR ---
MS RN OPENING NOTES RECEIVED PT. FROM NIGHTSHIFT NURSE IN STABLE CONDITION. PT IS A/O X3. NO SOB OR SIGNS OF DISTRESS NOTED. BREATHING IS EVEN AND UNLABORED. PT IS ON 2L O2 VIA NC AND SATING WELL @ 99%. PT. REPORTS OF LOWER BACK PAIN RATED A 5/10. PT STATES THAT HE CAN TOLERATE PAIN UNTIL ALLOTTED TIME FOR PRN PAIN MEDICATION. PT DENIES ANY DIZZINESS AT THIS TIME. LEFT FEMORAL TRIPLE LUMEN CATHETER INTACT AND PATENT. NO REDNESS OR SIGNS OF INFILTRATION NOTED. JAX AV SHUNT NOTED. NO BLEEDING OR SIGNS OF INFECTION. NO BP OR BLOOD DRAWS ON RIGHT ARM SIGN IS POSTED ABOVE BED. PT. HAS A RIGHT CHEST WALL PERMCATH WHICH HAS MALFUNCTIONED AT THE TIME. BED IN LOW LOCKED POSITION, SIDE RAILS UP X2, CALL LIGHT WITHIN REACH. WILL CONTINUE TO MONITOR.
[2017-03-28 09:14] LABS: EOSINOPHILS % (MANUAL) 4 % (0-4); LYMPHOCYTES % (MANUAL) 17 % (16-48); MONOCYTES % (MANUAL) 15 % (0-11.0); NEUTROPHILS % (MANUAL) 64 (42-76)
[2017-03-28 09:34] LABS: ABG BASE EXCESS -0.4 mmol/L; ABG OXYGEN SATURATION 94.2 % (92.0-98.5); ABG PCO2 55.9 mmHg (35.0-45.0); ABG PH 7.293 (7.350-7.450); ABG PO2 80.6 mmHg (75.0-100.0); AaDO2 53.1 mmHg; COHb 3.1 % (0.5-1.5); O2Hb 90.3 % (94.0-97.0); SITE, ABG Left Radial; VENT MODE, BG 2LPM VIA N/C
[2017-03-28 12:00] VITALS: BP 106/65
[2017-03-28 12:03] LABS: AFP, TUMOR MARKER 2.4 ng/mL (0.0-8.3)
--- NOTE | 2017-03-28 18:38 | NUR ---
MS RN CLOSING NOTES PT REMAINS IN STABLE. NO ACUTE CHANGES IN CONDITION DURING SHIFT. PT IS NOW ON 1L O2 FOLLOWING DR. FRANCISCO'S RECOMMENDATION. PT IS SATING WELL @ 99%. BREATHING REMAINS EVEN AND UNLABORED. NO SYNCOPAL EPISODES OCCURRED DURING SHIFT. ALL NEEDS WERE ANTICIPATED AND MET. ALL ORDERS CARRIED OUT ACCORDINGLY. ALL SAFETY MEASURES IN PLACE. WILL ENDORSE TO NIGHTSHIFT NURSE FOR CM
[2017-03-28 20:00] VITALS: BP 90/56
--- NOTE | 2017-03-28 21:59 | NUR ---
MS-1/RECEIVER BULK SYSTEM EXPLAINED TO PT REASON FOR MRI ORDERED BY DR. WILKINS. CHECKLIST COMPLETED. CONSENT OBTAINED.
[2017-03-29] VITALS: BP 115/71
[2017-03-29 04:00] VITALS: BP 100/66
--- NOTE | 2017-03-29 06:45 | NUR ---
TEXTED DR. MOON FOR MRI APPROVAL.
[2017-03-29 06:58] LABS: BASOPHILS % (AUTO) 0.3 % (0.0-2.0); EOSINOPHILS # (AUTO) 0.3 /CMM (0.0-0.7); EOSINOPHILS % (AUTO) 3.1 % (0.0-6.0); HEMATOCRIT 22 % (39-51); HEMOGLOBIN 7.4 g/dL (13.5-17.5); LYMPHOCYTES # (AUTO) 1.5 /CMM (0.8-4.8); LYMPHOCYTES % (AUTO) 17.7 % (20.0-44.0); MEAN CORPUSCULAR HEMOGLOBIN 29 PG (26.0-33.0); MEAN CORPUSCULAR HGB CONC 34 g/dl (31.0-36.0); MEAN CORPUSCULAR VOLUME 87 fL (80-96); MONOCYTES # (AUTO) 0.9 /CMM (0.1-1.30); MONOCYTES % (AUTO) 10.4 % (2.0-12.0); NEUTROPHILS % (AUTO) 68.5 % (43.0-81.0); RDW COEFFICIENT OF VARIATION 16.8 (11.5-15.0); RED BLOOD CELL COUNT(AUTO) 2.54 MIL/uL (4.5-6.0); WHITE BLOOD COUNT (AUTO) 8.7 K/uL (4.3-11.0)
[2017-03-29 07:22] LABS: CALCIUM, SERUM 9.1 mg/dL (8.5-10.1); CREATININE 6.2 mg/dL (0.6-1.3); POTASSIUM 4.8 mmol/L (3.5-5.1)
[2017-03-29 07:40] LABS: PLATELET COUNT (AUTO) 37 /CMM (150-450)
[2017-03-29 08:00] VITALS: BP 115/79
--- NOTE | 2017-03-29 08:00 | NUR ---
ms rn received on bed, awake,alert,oriented x3,not in any form of distress, respirations even and unlabored,no sob noted. noted to have distended abdomen, soft, denies pain at this time, will monitor patient's condition.
[2017-03-29 08:23] LABS: BAND % (MANUAL) 2 % (0.0-5.0); EOSINOPHILS % (MANUAL) 4 % (0-4); LYMPHOCYTES % (MANUAL) 20 % (16-48); MONOCYTES % (MANUAL) 10 % (0-11.0); NEUTROPHILS % (MANUAL) 64 (42-76)
--- NOTE | 2017-03-29 08:30 | NUR ---
ms rn patient on npo at this time for mri abdomen w/ and w/o contrast, on going dialysis at this time, tolerating well.
--- NOTE | 2017-03-29 12:21 | NUR ---
RN HD TREATMENT DONE W/ 3000ML OUTPUT, VANCO LEVEL UP, HEL;D PER DOSE, RX NOTIFIED.
--- NOTE | 2017-03-29 12:56 | NUR ---
clarified with renal DR. SIMONS IF OK TO DO MRI ABDOMEN WITH COTRAST POST HD,PER RENAL OK TO DO THE MRI.OPTIMIZATION ANALYST MADE AWARE.
--- NOTE | 2017-03-29 15:00 | NUR ---
ms rn patient went down to mri, partially did it, charge nurse aware.
--- NOTE | 2017-03-29 15:45 | NUR ---
PT REFUSED HHN AT THIS TIME ZERO DISTRESS NOTED.
[2017-03-29 16:00] VITALS: BP 101/59
--- NOTE | 2017-03-29 18:17 | NUR ---
ms rn due meds given,tolerated well, no distress, paracenthesis, was not done due to platelet is low, darrian aware.
--- NOTE | 2017-03-29 18:18 | NUR ---
ms rn on bed, no distress, will endorse to shove up for continuity of care.
[2017-03-29 20:00] VITALS: BP 117/57
--- NOTE | 2017-03-29 20:30 | NUR ---
MS RN INITIAL NOTES RECEIVED PT. FROM AM NURSE IN STABLE CONDITION. PT IS A/O X3. NO SOB OR SIGNS OF DISTRESS NOTED. BREATHING IS EVEN AND UNLABORED. PT IS ON 2L O2 VIA NC AND SATING WELL @ 99%. PT. DENIES ANY DISCOMFORT, PT STATES THAT HE CAN TOLERATE PAIN UNTIL ALLOTTED TIME FOR PRN PAIN MEDICATION. PT DENIES ANY DIZZINESS AT THIS TIME. LEFT FEMORAL TRIPLE LUMEN CATHETER INTACT AND PATENT. NO REDNESS OR SIGNS OF INFILTRATION NOTED. JXA AV SHUNT NOTED. NO BLEEDING OR SIGNS OF INFECTION. NO BP OR BLOOD DRAWS ON RIGHT ARM SIGN IS POSTED ABOVE BED. PT. HAS A RIGHT CHEST WALL PERMCATH WHICH HAS
[2017-03-30 04:00] VITALS: BP 101/53
--- NOTE | 2017-03-30 06:19 | NUR ---
MS RN CLOSING NOTES ENDORSED PT. FROM AM NURSE IN STABLE CONDITION. PT IS A/O X3. NO SOB OR SIGNS OF DISTRESS NOTED. BREATHING IS EVEN AND UNLABORED. PT IS ON 2L O2 VIA NC AND SATING WELL @ 99%. PT. DENIES ANY DISCOMFORT, PT STATES THAT HE CAN TOLERATE PAIN UNTIL ALLOTTED TIME FOR PRN PAIN MEDICATION. PT DENIES ANY DIZZINESS AT THIS TIME. LEFT FEMORAL TRIPLE LUMEN CATHETER INTACT AND PATENT. NO REDNESS OR SIGNS OF INFILTRATION NOTED. JAX AV SHUNT NOTED. NO BLEEDING OR SIGNS OF INFECTION. NO BP OR BLOOD DRAWS ON RIGHT ARM SIGN IS POSTED ABOVE BED. PT. HAS A RIGHT CHEST WALL PERMCATH WHICH HAS
--- NOTE | 2017-03-30 07:00 | NUR ---
MS RN NOTE: RECEIVED PT AWAKE IN BED, A&OX3, DENIES PAIN. ON 2LPM O2 VIA NC, RESPIRATIONS EVEN AND UNLABORED WITH NO SOB NOTED. L FEMORAL TRIPLE LUMEN CATH, R CHEST WALL PERMA CATH AND JAX AV SHUNT NOTED. ALL NEEDS MET AND ANTICIPATED. BED LOW, LOCKED WITH CALL LIGHT WITHIN REACH. WILL CONT TO MONITOR.
[2017-03-30 08:00] VITALS: BP 96/69
--- NOTE | 2017-03-30 08:27 | NUR ---
MS RN NOTE: INFORMED PHARM VANCO RESULT FOR TODAY IS 16 AND THAT PT RECEIVED DIALYSIS YESTERDAY 03/29/17. PER PHARM, GIVE VANCO IF HD GIVEN TODAY.
--- NOTE | 2017-03-30 09:55 | NUR ---
MS CRENSHAW NOTE: PER RADIOLOGY, CT OF THE ABDOMEN AND PELVIS MUST BE DONE 2 HOURS PRIOR TO SCHEDULED DIALYSIS DUE TO CREATININE LEVEL OF 6.2. Addendum: 03/30/17 at 1511 by SARAHI COONEY RN CORRECTION: 24 HOURS PRIOR TO DIALYSIS.
--- NOTE | 2017-03-30 10:21 | NUR ---
FOR CT A/P WWO PT IN DIALYSIS
--- NOTE | 2017-03-30 10:43 | NUR ---
MS RN NOTE: CONSENT FOR CT ABDOMEN PELVIS SIGNED BY PT AND PLACED IN CHART.
--- NOTE | 2017-03-30 11:26 | NUR ---
MS RN NOTE: LEFT MESSAGE FOR [facility] [phone] TO RETURN CALL TO SCHEDULE DIALYSIS.
--- NOTE | 2017-03-30 15:11 | NUR ---
MS RN NOTE: SPOKE TO REBEKAH, CONFIRMED DIALYSIS TOMORROW. CALLED RADIOLOGY AND WILL HAVE CT OF THE ABDOMEN PELVIS TODAY.
[2017-03-30 16:00] VITALS: BP 100/58
--- NOTE | 2017-03-30 18:35 | NUR ---
MS RN NOTE: NO ACUTE CHANGES DURING SHIFT. PT A&OX3. ON 2LPM O2 VIA NC WITH NO SOB NOTED. PAIN MANAGED. ORDERS CARRIED OUT. BED LOW, LOCKED WITH CALL LIGHT WITHIN REACH. WILL ENDORSE TO NIGHT NURSE FOR CM.
--- NOTE | 2017-03-30 19:47 | NUR ---
MS RN INITIAL NOTE: RECEIVED PT AWAKE IN BED, A&OX3, DENIES PAIN. ON 2LPM O2 VIA NC, RESPIRATIONS EVEN AND UNLABORED WITH NO SOB NOTED. L FEMORAL TRIPLE LUMEN CATH, R CHEST WALL PERMA CATH AND JAX AV SHUNT NOTED. ALL NEEDS MET AND ANTICIPATED. BED LOW, LOCKED WITH CALL LIGHT WITHIN REACH. WILL CONT TO MONITOR.
[2017-03-30 20:00] VITALS: BP 100/54
--- NOTE | 2017-03-30 21:00 | NUR ---
2100 PM COREG 25 MG 2 TABS AND CATAPRES 0.1MG HELD BP 100/54, HR 77, PT STABLE DENIES ANY DIZZINESS, WILL CONT TO MONITOR. ENDORSED BY AM SHIFT TO MONITOR BP, TRENDING LOW WELL IN AM.
[2017-03-31] VITALS (7 sets, daily range): BP systolic 100–123; BP diastolic 54–75
--- NOTE | 2017-03-31 06:46 | NUR ---
MS RN CLOSING NOTE: ENDORSED PT AWAKE IN BED, A&OX3, DENIES PAIN. ON 2LPM O2 VIA NC, RESPIRATIONS EVEN AND UNLABORED WITH NO SOB NOTED. L FEMORAL TRIPLE LUMEN CATH, R CHEST WALL BLANCA CATH AND JAX AV SHUNT NOTED. ALL NEEDS MET AND ANTICIPATED. BED LOW, LOCKED WITH CALL LIGHT WITHIN REACH. WILL CONT TO MONITOR.
--- NOTE | 2017-03-31 09:14 | NUR ---
pt. was not npo and having dialysis. Will try scan again tomorrow 04/01
[2017-03-31 12:27] LABS: BASOPHILS % (AUTO) 0.6 % (0.0-2.0); EOSINOPHILS # (AUTO) 0.2 /CMM (0.0-0.7); EOSINOPHILS % (AUTO) 2.7 % (0.0-6.0); LYMPHOCYTES # (AUTO) 1.2 /CMM (0.8-4.8); LYMPHOCYTES % (AUTO) 16.4 % (20.0-44.0); MEAN CORPUSCULAR HEMOGLOBIN 29 PG (26.0-33.0); MEAN CORPUSCULAR HGB CONC 33 g/dl (31.0-36.0); MEAN CORPUSCULAR VOLUME 87 fL (80-96); MONOCYTES # (AUTO) 0.8 /CMM (0.1-1.30); MONOCYTES % (AUTO) 10.8 % (2.0-12.0); NEUTROPHILS # (AUTO) 5.2 /CMM (1.8-8.9); NEUTROPHILS % (AUTO) 69.5 % (43.0-81.0); RDW COEFFICIENT OF VARIATION 16.9 (11.5-15.0); RED BLOOD CELL COUNT(AUTO) 2.05 MIL/uL (4.5-6.0); WHITE BLOOD COUNT (AUTO) 7.5 K/uL (4.3-11.0)
[2017-03-31 12:31] LABS: HEMOGLOBIN 5.9 g/dL (13.5-17.5)
[2017-03-31 12:32] LABS: HEMATOCRIT 18 % (39-51); PLATELET COUNT (AUTO) 47 /CMM (150-450)
[2017-03-31 13:19] LABS: EOSINOPHILS % (MANUAL) 2 % (0-4); LYMPHOCYTES % (MANUAL) 22 % (16-48); MONOCYTES % (MANUAL) 9 % (0-11.0); NEUTROPHILS % (MANUAL) 67 (42-76)
[2017-03-31 13:48] LABS: ALBUMIN 2.6 g/dL (3.4-5.0); BILIRUBIN,TOTAL 1.1 mg/dL (0.2-1.0); CALCIUM, SERUM 8.7 mg/dL (8.5-10.1); CREATININE 6.6 mg/dL (0.6-1.3); POTASSIUM 5.3 mmol/L (3.5-5.1); TOTAL PROTEIN, SERUM 6.7 g/dL (6.4-8.2)
--- NOTE | 2017-03-31 15:30 | NUR ---
PATIENT HAD DIALYSIS NURSE TRANSFUSE 2 UNITS OF PRBC'S FOR DECREASE H&H.
--- NOTE | 2017-03-31 19:30 | NUR ---
MS RN INITIAL NOTE RECEIVED PT IN BED. A/O X3 AND ABLE TO VERBALIZE NEEDS. ON 2L OF O2 VIA NC AND SATURATING WELL. IV L FEMORAL CLEAN, PATENT, R CHEST WALL BLANCA CATH CLEAN, DRY, JAX AV SHUNT IN PLACE. CALL LIGHT WITHIN REACH. BED IN LOW POSITION AND LOCKED IN PLACE. WILL CONTINUE TO MONITOR.
[2017-04-01 04:00] VITALS: BP 117/70
--- NOTE | 2017-04-01 07:00 | NUR ---
RN NOTE RECEIVED PT ON BED, A/O X3 RESPIRATION EVEN AND UNLABORED, ABLE TO VERBALIZE NEEDS ON O2 2L NC , ZAINA ANY SOB , IV L FEMORAL TLC AND R CHEST WALL BLANCA CATH CDI , JAX AV SHUNT IN PLACE. CALL LIGHT WITHIN EASY REACH. BED LOCKED AND IN LOWEST POSITION, CONTINUE TO MONITOR PT CLOSELY AND NOTIFY MD FOR ANY SIGNIFICANT CHANGES .
[2017-04-01 07:11] LABS: BASOPHILS # (AUTO) 0.1 /CMM (0.0-0.2); BASOPHILS % (AUTO) 0.5 % (0.0-2.0); EOSINOPHILS # (AUTO) 0.2 /CMM (0.0-0.7); EOSINOPHILS % (AUTO) 2.3 % (0.0-6.0); HEMATOCRIT 21 % (39-51); HEMOGLOBIN 7.2 g/dL (13.5-17.5); LYMPHOCYTES # (AUTO) 1.2 /CMM (0.8-4.8); MEAN CORPUSCULAR HEMOGLOBIN 29 PG (26.0-33.0); MEAN CORPUSCULAR HGB CONC 34 g/dl (31.0-36.0); MEAN CORPUSCULAR VOLUME 87 fL (80-96); MONOCYTES # (AUTO) 1.1 /CMM (0.1-1.30); MONOCYTES % (AUTO) 11.3 % (2.0-12.0); NEUTROPHILS # (AUTO) 7.1 /CMM (1.8-8.9); NEUTROPHILS % (AUTO) 73.9 % (43.0-81.0); PLATELET COUNT (AUTO) 52 /CMM (150-450); RDW COEFFICIENT OF VARIATION 16.9 (11.5-15.0); RED BLOOD CELL COUNT(AUTO) 2.46 MIL/uL (4.5-6.0); WHITE BLOOD COUNT (AUTO) 9.6 K/uL (4.3-11.0)
--- NOTE | 2017-04-01 07:36 | NUR ---
MS RN CLOSING NOTE PT REMAINED STABLE DURING SHIFT. ON 2L OF O2 VIA NC. PAIN MANAGED THROUGHOUT THE SHIFT. ALL NEEDS ATTENDED TO PROMPTLY. KEPT CLEAN AND DRY. BED IN LOWEST POSITION. CALL LIGHT WITHIN REACH AT ALL TIMES. WILL ENDORSE TO NEXT SHIFT FOR CONTINUITY OF CARE.
[2017-04-01 07:51] LABS: ALBUMIN 2.6 g/dL (3.4-5.0); BILIRUBIN,TOTAL 1.1 mg/dL (0.2-1.0); CALCIUM, SERUM 8.5 mg/dL (8.5-10.1); CREATININE 5.4 mg/dL (0.6-1.3); MAGNESIUM 2.2 mg/dL (1.8-2.4); PHOSPHORUS 5.6 mg/dL (2.5-4.9); POTASSIUM 4.4 mmol/L (3.5-5.1); TOTAL PROTEIN, SERUM 7.2 g/dL (6.4-8.2)
[2017-04-01 07:52] LABS: EOSINOPHILS % (MANUAL) 1 % (0-4); LYMPHOCYTES % (MANUAL) 15 % (16-48); MONOCYTES % (MANUAL) 4 % (0-11.0); NEUTROPHILS % (MANUAL) 80 (42-76)
[2017-04-01 08:00] VITALS: BP 119/62
--- NOTE | 2017-04-01 08:58 | NUR ---
SPOKE WITH RN. PATIENT TO BE SCANNED JUST BEFORE NEXT SCHEDULED DIALYSIS AT 0900 04/02/17. PATIENT MUST BE NPO FOR CT ABDOMEN PELVIS WITH AND WITHOUT CONTRAST.
--- NOTE | 2017-04-01 12:00 | NUR ---
RN NOTES REFUSED TO FOLLOW RENAL DIET , PT EATS FOOD THAT FAMILY BRINGS FROM OUT SIDE , REINFORCE RENAL DIET TEACHING .
[2017-04-01 16:00] VITALS: BP 114/72
--- NOTE | 2017-04-01 18:36 | NUR ---
RN NOTES PT STABLE , OUT OF BED TO BR , VSS STABLE , NO SIGNIFICANT CHANGES NOTED ON THIS SHIFT .
--- NOTE | 2017-04-01 19:15 | NUR ---
RN INITIAL NOTES RECEIVED PATIENT IN BED, SLEEPING COMFORTABLY. NO DISTRESS. EASILY AROUSABLE WITH VERBAL AND TACTILE STIMULI WITH NO C/O PAIN AND DISCOMFORT AT THIS TIME. ON 2LPM OF O2 VIA NC, RESPIRATION IS EVEN AND UNLABORED. JAX AV SHUNT, INTACT, PALPABLE BRUIT AND THRILL. R CHESTWALL PORTACATH WITH INTACT SKIN. L FEMORAL TLC, WITH INTACT DRESSING, ALL LUMENS FLUSHED WITH (+) BLOOD RETURN, KEPT PATENT. PATIENT'S NEEDS ANTICIPATED AND MET. SAFETY AND COMFORT ENSURED. BED IN LOW AND LOCKED POSITION. CALL LIGHT IN REACH. WILL MONITOR.
[2017-04-01 20:00] VITALS: BP 112/56
[2017-04-02] VITALS (14 sets, daily range): BP systolic 103–132; BP diastolic 53–92
--- NOTE | 2017-04-02 00:30 | NUR ---
RN NOTES PATIENT PLACED ON NPO POST MIDNIGHT FOR SCHEDULED CT ABDOMEN/PELVIS IN AM. REINFORCEMENT PROVIDED TO PATIENT, PATIENT VERBALIZED UNDERSTANDING. CLEARED BEDSIDE FROM ANY FOOD WITH PATIENT'S CONSENT.
--- NOTE | 2017-04-02 06:58 | NUR ---
RN CLOSING NOTES PATIENT WITH NO ACUTE CHANGE IN CONDITION/DISTRESS OBSERVED OVERNIGHT. PATIENT REMAINS STABLE, NO DISTRESS. SLEEPING COMFORTABLY AT THIS TIME, DENIES ANY PAIN AND DISCOMFORT. NPOpMN ORDERED. MEDICATED FOR PAIN ORDERED PRN, WITH GOOD HELP. NEEDS ANTICIPATED AND MET. KEPT CLEAN AND DRY. SAFETY AND COMFORT ENSURED. BED IN LOW AND LOCKED POSITION. CALL LIGHT IN REACH. WILL ENDORSE ACCORDINGLY FOR CONTINUITY OF CARE.
--- NOTE | 2017-04-02 07:30 | NUR ---
RN NOTES REPORT RECV'D FROM NOC RN. ASSESSED PT. LYING IN BED A&OX4. RESP UNLABORED 2LNC. MOVES ALL EXT. RESTING COMFORTABLY. NPO FOR CT ABD W/ CONTRAST. HEP LOCK LEFT FEMORAL TRIPLE LUMEN CATH SITE CDI. RUC PORTACATH NOT ACCESSED. BED IN LOW LOCKED POSITION. CALL LIGHT W/IN REACH. WILL CONT TO MONITOR.
[2017-04-02 11:00] LABS: PROTHROMBIN TIME 10.7 SECS (9.5-12.7)
--- NOTE | 2017-04-02 13:24 | NUR ---
RN NOTES RADIOLOGIST BEDSIDE ABD ULTRASOUND STATES, "PARACENTESIS IS NOT NEEDED AT THIS TIME GIVEN SMALL AMOUNT OF ASCITES".
[2017-04-02 14:23] LABS: ABG OXYGEN SATURATION 96.1 % (92.0-98.5); ABG PCO2 69.4 mmHg (35.0-45.0); ABG PH 7.229 (7.350-7.450); ABG PO2 102.1 mmHg (75.0-100.0); AaDO2 15.7 mmHg; MetHb 1.2 % (0.0-1.5); O2Hb 92.1 % (94.0-97.0); SITE, ABG Left Brachial; VENT MODE, BG NASAL CANNULA
--- NOTE | 2017-04-02 15:25 | NUR ---
RN NOTES ORDER RECEIVED FROM DR FRANCISCO TO TRANSFER PT OT ICU BASED ON ABG RESULTS . PT A/Ox3, PT DENIES ANY DISTRESS , PT TRANSFERRED TO ROOM 252 IN ICU PER MD ORDER .
--- NOTE | 2017-04-02 16:58 | NUR ---
PHOTOENGRAVING RETOUCHER [id number] PT FROM [facility] NOT STABLE ON BIPAP AWAKE ALERT LETHARGIC, PT WAS RECENTLY DIALYZED, BLANCA BURTON, PICC LINE LEFT GROWN FEMORAL, R HAND AV FISTULA, PT ON BIPAP SETTINGS NOTED SAT 99% SR WITH BBBS ON MONITOR, PT DENIES ANY SOB AND CHEST PAIN, OFFLOADED LOWER AND UPPER EXTREMITIES, FALL PRECAUTIONS TAKEN CALL LIGHT W/ IN REACH WILL CONTINUE TO MONITOR.
--- NOTE | 2017-04-02 17:00 | NUR ---
pt is on bipap unable to swallow pills ok to hold oral med till pt is stable.
[2017-04-02 17:56] LABS: ABG BASE EXCESS 0.7 mmol/L; ABG OXYGEN SATURATION 95.9 % (92.0-98.5); ABG PCO2 58.4 mmHg (35.0-45.0); ABG PO2 98.1 mmHg (75.0-100.0); AaDO2 47.2 mmHg; MetHb 1.4 % (0.0-1.5); O2Hb 91.7 % (94.0-97.0); SITE, ABG Left Radial; VENT MODE, BG BIPAP 18/5
--- NOTE | 2017-04-02 19:30 | NUR ---
TUBE BUILDER INITIAL NOTE RECEIVED REPORT FROM RENY RN. PT IN BED. ASLEEP BUT AROUSABLE. ON BIPAP 18/5 RATE 12 30%. LUNG SOUNDS DIMINISHED. BOWEL SOUNDS PRESENT. ANURIC. RIGHT UPPER ARM FISTULA INTACT. IV'S PATENT AND INTACT. PULSES PRESENT. BED IN LOW LOCKED POSITION. CALL LIGHT WITHIN REACH. WILL CONTINUE TO MONITOR.
[2017-04-02 20:02] LABS: BASOPHILS % (AUTO) 0.3 % (0.0-2.0); EOSINOPHILS # (AUTO) 0.2 /CMM (0.0-0.7); EOSINOPHILS % (AUTO) 2.6 % (0.0-6.0); LYMPHOCYTES # (AUTO) 1.5 /CMM (0.8-4.8); LYMPHOCYTES % (AUTO) 20.6 % (20.0-44.0); MEAN CORPUSCULAR HEMOGLOBIN 29 PG (26.0-33.0); MEAN CORPUSCULAR HGB CONC 33 g/dl (31.0-36.0); MEAN CORPUSCULAR VOLUME 88 fL (80-96); MONOCYTES % (AUTO) 13.1 % (2.0-12.0); NEUTROPHILS # (AUTO) 4.7 /CMM (1.8-8.9); NEUTROPHILS % (AUTO) 63.4 % (43.0-81.0); RDW COEFFICIENT OF VARIATION 16.6 (11.5-15.0); RED BLOOD CELL COUNT(AUTO) 2.25 MIL/uL (4.5-6.0); WHITE BLOOD COUNT (AUTO) 7.5 K/uL (4.3-11.0)
[2017-04-02 21:22] LABS: HEMATOCRIT 20 % (39-51)
[2017-04-02 21:23] LABS: HEMOGLOBIN 6.5 g/dL (13.5-17.5); PLATELET COUNT (AUTO) 43 /CMM (150-450)
[2017-04-02 21:51] LABS: EOSINOPHILS % (MANUAL) 4 % (0-4); LYMPHOCYTES % (MANUAL) 36 % (16-48); MONOCYTES % (MANUAL) 3 % (0-11.0); NEUTROPHILS % (MANUAL) 57 (42-76)
[2017-04-03] VITALS (22 sets, daily range): BP systolic 90–133; BP diastolic 56–95
[2017-04-03 04:57] LABS: BASOPHILS % (AUTO) 0.5 % (0.0-2.0); EOSINOPHILS # (AUTO) 0.1 /CMM (0.0-0.7); EOSINOPHILS % (AUTO) 1.9 % (0.0-6.0); HEMATOCRIT 22 % (39-51); HEMOGLOBIN 7.4 g/dL (13.5-17.5); LYMPHOCYTES # (AUTO) 1.4 /CMM (0.8-4.8); LYMPHOCYTES % (AUTO) 17.5 % (20.0-44.0); MEAN CORPUSCULAR HEMOGLOBIN 30 PG (26.0-33.0); MEAN CORPUSCULAR HGB CONC 34 g/dl (31.0-36.0); MEAN CORPUSCULAR VOLUME 87 fL (80-96); MONOCYTES # (AUTO) 1.1 /CMM (0.1-1.30); MONOCYTES % (AUTO) 14.6 % (2.0-12.0); NEUTROPHILS # (AUTO) 5.1 /CMM (1.8-8.9); NEUTROPHILS % (AUTO) 65.5 % (43.0-81.0); RDW COEFFICIENT OF VARIATION 16.8 (11.5-15.0); RED BLOOD CELL COUNT(AUTO) 2.48 MIL/uL (4.5-6.0); WHITE BLOOD COUNT (AUTO) 7.7 K/uL (4.3-11.0)
[2017-04-03 05:16] LABS: ALBUMIN 2.5 g/dL (3.4-5.0); CALCIUM, SERUM 8.6 mg/dL (8.5-10.1); CREATININE 5.7 mg/dL (0.6-1.3); MAGNESIUM 2.1 mg/dL (1.8-2.4); PHOSPHORUS 6.2 mg/dL (2.5-4.9); POTASSIUM 5.1 mmol/L (3.5-5.1); TOTAL PROTEIN, SERUM 7.2 g/dL (6.4-8.2)
[2017-04-03 05:19] LABS: PLATELET COUNT (AUTO) 44 /CMM (150-450)
[2017-04-03 07:44] LABS: EOSINOPHILS % (MANUAL) 2 % (0-4); LYMPHOCYTES % (MANUAL) 26 % (16-48); MONOCYTES % (MANUAL) 12 % (0-11.0); NEUTROPHILS % (MANUAL) 60 (42-76)
--- NOTE | 2017-04-03 10:52 | NUR ---
SMALL OFFSET PRINTER NOTE 0720: Received patient awake, A/Ox4. No respiratory distress noted at this time. On 2LPM of O2 via NC tolerated well. No c/o discomfort at this time. With JAX AV shunt +bruit and thrill. Left femo TLC intact. SR 70's on the monitor. 0920: Pain med given as requested, will monitor for comfort. VSS at this time. 1015: S/E by Dr. Junior, awaiting for ABG.
--- NOTE | 2017-04-03 20:00 | NUR ---
received pt from ICU, a/o x4, follows commands, SR, BBB, on 2L 02, sat well, lungs congested, edema, throughout, tolerates diet, diaper on, HD pt, v/s stable, no pain, pt turns and repositions by himself.
[2017-04-04] VITALS (7 sets, daily range): BP systolic 90–142; BP diastolic 50–104
--- NOTE | 2017-04-04 04:29 | NUR ---
pt is resting in the bed, no acute distress overnight, v/s stable, no pain, pt cleaned and changed.
[2017-04-04 08:05] LABS: BASOPHILS % (AUTO) 0.1 % (0.0-2.0); EOSINOPHILS # (AUTO) 0.1 /CMM (0.0-0.7); EOSINOPHILS % (AUTO) 1.4 % (0.0-6.0); HEMATOCRIT 22 % (39-51); HEMOGLOBIN 7.1 g/dL (13.5-17.5); LYMPHOCYTES # (AUTO) 1.5 /CMM (0.8-4.8); LYMPHOCYTES % (AUTO) 19.5 % (20.0-44.0); MEAN CORPUSCULAR HEMOGLOBIN 29 PG (26.0-33.0); MEAN CORPUSCULAR HGB CONC 33 g/dl (31.0-36.0); MEAN CORPUSCULAR VOLUME 88 fL (80-96); MONOCYTES # (AUTO) 1.1 /CMM (0.1-1.30); MONOCYTES % (AUTO) 14.6 % (2.0-12.0); NEUTROPHILS % (AUTO) 64.4 % (43.0-81.0); RDW COEFFICIENT OF VARIATION 16.8 (11.5-15.0); RED BLOOD CELL COUNT(AUTO) 2.44 MIL/uL (4.5-6.0); WHITE BLOOD COUNT (AUTO) 7.8 K/uL (4.3-11.0)
[2017-04-04 08:09] LABS: PLATELET COUNT (AUTO) 33 /CMM (150-450)
[2017-04-04 08:20] LABS: CALCIUM, SERUM 9.1 mg/dL (8.5-10.1); CREATININE 6.7 mg/dL (0.6-1.3); POTASSIUM 5.9 mmol/L (3.5-5.1)
[2017-04-04 08:26] LABS: BAND % (MANUAL) 2 % (0.0-5.0); EOSINOPHILS % (MANUAL) 1 % (0-4); LYMPHOCYTES % (MANUAL) 16 % (16-48); MONOCYTES % (MANUAL) 11 % (0-11.0); NEUTROPHILS % (MANUAL) 70 (42-76)
[2017-04-04 09:27] LABS: ABG BASE EXCESS -0.1 mmol/L; ABG PCO2 60.7 mmHg (35.0-45.0); ABG PH 7.269 (7.350-7.450); ABG PO2 55.5 mmHg (75.0-100.0); AaDO2 21.5 mmHg; COHb 3.4 % (0.5-1.5); O2Hb 83.2 % (94.0-97.0); SITE, ABG Left Radial
--- NOTE | 2017-04-04 19:40 | NUR ---
RN INITIAL NOTE RECEIVED PT IN NO ACUTE DISTRESS IN BED. PT IS A/O X 4 AND ABLE TO MAKE NEEDS KNOWN. PT IS ON O2 VIA NC @ 2LPM AND TOLERATING WELL WITH O2 SAT @ 100%. PT IS ON TELE WITH SR ON THE MONITOR. PT NOT C/O ANY SOB, DIFFICULTY BREATHING OR PAIN AT THIS TIME. PT HAS LEFT FEMORAL TLC THAT IS CLEAN DRY INTACT AND PATENT WITH NS @ TKO. PT HAS RIGHT UPPER ARM FISTULA THAT IS CLEAN DRY WITH POSITIVE BRUIT. PT HAS OLD RIGHT CHEST PORT WHICH PT STATES IS NO LONGER WORKING BECAUSE ITS CLOTTED. BED IN LOW LOCK POSITION WITH RIALS UP X 2. CALL LIGHT WITHIN REACH AND ALL SAFETY MEASURES ENSURED AND CARRIED OUT. WILL CONTINUE TO MONITOR PT.
[2017-04-05] VITALS: BP 111/75
[2017-04-05 04:00] VITALS: BP 107/74
--- NOTE | 2017-04-05 06:27 | NUR ---
RN CLOSING NOTE PT REMAINS IN NO ACUTE DISTRESS IN BED. PT DID NOT HAVE ANY SIGNIFICANT CHANGE IN CONDITION DURING SHIFT. ALL NEEDS MET, ALL ORDERS CARRIED OUT. WILL ENDORSE CARE TO AM RN FOR CONTINUITY OF CARE.
--- NOTE | 2017-04-05 07:10 | NUR ---
REINFORCER NOTE: RECEIVED PT AWAKE IN BED. PT IS A&OX4, DENIES PAIN. ON 2LPM O2 VIA NC, RESPIRATIONS EVEN AND UNLABORED WITH NO SOB NOTED. ON TELE MONITOR WITH SR IN THE LOW 70S. L FEMORAL TLC RUNNING WITH NS TKO. BRUIT ON JAX FISTULA. H/O RIGHT CHEST PORT NOTED AND CLOTTED. BED LOW, X2 SIDE RAILS UP, LOCKED WITH CALL LIGHT WITHIN REACH. WILL CONT TO MONITOR.
[2017-04-05 08:00] VITALS: BP 110/74
[2017-04-05 12:00] VITALS: BP 104/65
[2017-04-05 13:33] LABS: HEMOGLOBIN 7.4 g/dL (13.5-17.5)
--- NOTE | 2017-04-05 14:20 | NUR ---
DIRECTOR OF ACQUISITION MARKETING NOTE: PHARMACY CALLED FOR VANCO TROUGH LAB DRAW IF PT IS TO RECEIVE DIALYSIS TODAY. NO SCHEDULE YET. WILL POST SIGN AT BEDSIDE.
--- NOTE | 2017-04-05 15:10 | NUR ---
RN FLIGHT NOTE: DIALYSIS NURSE AT BEDSIDE.
[2017-04-05 16:00] VITALS: BP 145/67
--- NOTE | 2017-04-05 17:00 | NUR ---
RESEARCH CLERK NOTE: DIALYSIS NURSE REPORTED 5L FLUID REMOVED.
--- NOTE | 2017-04-05 17:42 | NUR ---
INDUSTRIAL PLANT CUSTODIAN NOTE: PATIENT ACCIDENTLY SPILLED 1700 MED SODIUM CITRATE AND CITRIC ACID ORAL SOLUTION 15ML. OTHER DOSE REMOVED FROM [facility].
--- NOTE | 2017-04-05 18:49 | NUR ---
ELEVATOR REPAIRER NOTE: NO ACUTE CHANGES DURING SHIFT. PATIENT REMAINED A&OX4, DENIES PAIN. ON 3LPM O2 VIA NC, RESPIRATIONS EVEN AND UNLABORED WITH NO SOB NOTED. ON TELE MONITOR WITH SR IN THE 70S. L FEMORAL TLC RUNNING WITH VANCOMYCIN ORDERED. BRUIT ON JAX FISTULA. H/O RIGHT CHEST PORT NOTED AND CLOTTED. BED LOW, X2 SIDE RAILS UP, LOCKED WITH CALL LIGHT WITHIN REACH. ORDERS CARRIED OUT. WILL ENDORSE TO CUSTOMER SUPPORT CONSULTANT NURSE FOR CM.
--- NOTE | 2017-04-05 19:30 | NUR ---
HEATING REPAIR TECHNICIAN OPENING NOTES: RECEIVED PATIENT ON BED ASLEEP BUT EASILY AROUSABLE ALOX3. ON O2 VIA NC AT 3LPM, NOT IN APPARENT DISTRESS. SR ON MONITOR HR AT 76 BPM. IV ACCESS ON LEFT FEMORAL INTACT, FLUSHING WELL. NO COMPLAINTS OF PAIN AT THIS TIME. SAFETY MEASURES ENSURED. CONTINUOUSLY MONITORED.
[2017-04-05 20:00] VITALS: BP 104/62
[2017-04-06] VITALS (7 sets, daily range): BP systolic 91–144; BP diastolic 54–74
--- NOTE | 2017-04-06 07:00 | NUR ---
TANK TRUCK MECHANIC NOTE: RECEIVED PT AWAKE IN BED. PT IS A&OX4, DENIES PAIN. ON 3LPM O2 VIA NC, RESPIRATIONS EVEN AND UNLABORED WITH NO SOB NOTED. ON TELE MONITOR WITH SR IN THE LOW 80S. L FEMORAL TLC RUNNING WITH NS TKO. BRUIT ON JAX FISTULA. H/O RIGHT CHEST PORT NOTED AND CLOTTED. BED LOW, X2 SIDE RAILS UP, LOCKED WITH CALL LIGHT WITHIN REACH. WILL CONT TO MONITOR.
--- NOTE | 2017-04-06 07:05 | NUR ---
RN CLOSING NOTES: REMAINS NOT IN APPARENT DISTRESS ON BED. SKIN CARE RENDERED. AM LABS DRAWN, RESULTS PENDING. HELD AM DOSE OF CLONIDINE DUE TO DECREASED BLOOD PRESSURE. SAFETY MEASURES ENSURED. WITH OCCASIONAL COMPLAINTS OF PAIN, PRN PAIN MEDS ORDERED. CONTINUOUSLY MONITORED. ENDORSED TO AM SHIFT RN.
--- NOTE | 2017-04-06 09:50 | NUR ---
SPLICER HELPER NOTE: XR AT BEDSIDE.
--- NOTE | 2017-04-06 19:00 | NUR ---
MS RN NOTE: NO ACUTE CHANGES DURING SHIFT. PATIENT REMAINED A&OX4, DENIES PAIN. ON 3LPM O2 VIA NC, RESPIRATIONS EVEN AND UNLABORED WITH NO SOB NOTED. L FEMORAL TLC PATENT AND INTACT. BRUIT ON JAX FISTULA. H/O RIGHT CHEST PORT NOTED AND CLOTTED. BED LOW, X2 SIDE RAILS UP, LOCKED WITH CALL LIGHT WITHIN REACH. ORDERS CARRIED OUT. WILL ENDORSE TO BAR MACHINE OPERATOR PRODUCTION NURSE FOR CM.
--- NOTE | 2017-04-06 19:55 | NUR ---
RN INITIAL NOTES: RECEIVED REPORT FROM SARAHI RN, PT AWAKE, A/O X3 WITH GENERALIZED EDEMA/ANASARCA, PT ON 3L [place] NC RESPIRATION EVEN AND UNLABORED, STATED HE DOESNT HAVE ANY PAIN AT THIS TIME, BLE OFFLOADED, LEFT FEMORAL TLC IN PLACED, PATENT AND FLUSHING WELL, NS AT TKO. SAFETY PRECAUTIONS FOR FALL INITIATED CALL LIGHT IN REACH, WILL CONTINUE TO MONITOR
--- NOTE | 2017-04-06 22:00 | NUR ---
RN NOTES: PT REFUSED TO BE REPOSITION, EDUCATION PROVIDED TO THE PT BUT STILL MANAGED TO REFUSED
--- NOTE | 2017-04-06 22:42 | NUR ---
PRN DILAUDID: PT C/O 03/07 LOWER BACK PAIN REQUESTING FOR DILAUDID, PRN DILAUDID 0.5 MG IVP ADMINISTERED TO THE PT AT THIS TIME, WILL CONTINUE TO MONITOR AND REASSESS
--- NOTE | 2017-04-06 22:45 | NUR ---
PRN BENADRYL: PT C/O ITCHINESS, REQUESTING FOR HIS BENADRYL, PRN BENADRYL 25MG IVP ADMINISTERED TO THE PT AT THIS TIME, WILL CONTINUE TO MONITOR AND REASSESS
[2017-04-07] VITALS (7 sets, daily range): BP systolic 94–121; BP diastolic 52–74
--- NOTE | 2017-04-07 | NUR ---
RN NOTES: OFFERED BED BATH AT THIS TIME, HOWEVER PT REFUSED STATED TO DO IT LATER IN THE AM, EDUCATION PROVIDED TO THE PT REGARDING IMPORTANCE OF GOOD HYGIENE BUT PT REFUSED
--- NOTE | 2017-04-07 02:43 | NUR ---
PRN DILAUDID: PT C/O \LOWER BACK PAIN 03/07, REQUESTING FOR DILAUDID, PRN DILAUDID 0.5 MG IVP ADMINISTERED TO THE PT AT THIS TIME, WILL CONTINUE TO MONITOR AND REASSESS
--- NOTE | 2017-04-07 02:45 | NUR ---
PRN BENADRYL: PT C/O ITCHINESS ON SHOULDER AND LOWER BACK AREA, REQUESTING FOR BENADRYL, PRN BENADRYL GIVEN ORDERED
--- NOTE | 2017-04-07 04:00 | NUR ---
RN NOTES: PT REFUSED FOR TURNING AND REPOSITION AT THIS TIME, STATED TO DO IT LATER HE IS BUSY WITH HIS TABLET, EDUCATE PT REGARDING IMPORTANCE OF TURNING BUT STILL REFUSED
--- NOTE | 2017-04-07 04:43 | NUR ---
REFUSED AM CARE: OFFERED BED BATH, BUT PT REFUSED, STATED HE DOESNT WANT BED BATH AT THE MOMENT, BUT INSTEAD PREFERRED TO GET THE BATH AT 11AM, LINING MECHANICPEREZ LION MADE AWARE,
--- NOTE | 2017-04-07 05:06 | NUR ---
NON ADMIN OF CATAPRES: PT'S BLOOD PRESSURE IS 97/56 HR 70 DENIES ANY CHEST PAIN OR DISCOMFORT, DENIES ANY HEAD ACHE OR DIZZINESS OR LIGHT HEADEDNESS, CATAPRES NOT ADMINISTER AT THIS TIME DUE TO DECREASE BP, WILL CONTINUE MONITORING THE PT
--- NOTE | 2017-04-07 06:43 | NUR ---
PRN DILAUDID: PT C/O LOWER BACK PAIN PS 03/07 REQUESTING FOR HIS PAIN MEDICATION, PRN DILAUDID 0.5 MG IVP ADMINISTERED AT THIS TIME, WILL CONTINUE TO MONITOR AND REASSES
--- NOTE | 2017-04-07 06:46 | NUR ---
PRN BENADRYL: PT C/O ITCHING ON LEG AND LOWER BACK, REQUESTING FOR BENADRYL, PRN BENADRYL 25MG IVP ADMINISTERED ORDERED, WILL CONTINUE TO MONITOR AND REASSESS
--- NOTE | 2017-04-07 06:52 | NUR ---
RN CLOSING NOTES: PT IN BED, AWAKE, REMAINS ON 2L VIA NC, NO SOB NOTED, LEFT FEMORAL TLC REMAINS IN PLACED WITH ONGOING NS AT TKO, NO ACTIVE BLEEDING NOTED, PT HAVE EPISODE OF REFUSAL FOR REPOSITIONING, AND REFUSED BED BATH, REQUESTING TO GET A BATH AT 11AM, LAST PAIN MEDICATION GIVEN NOT TOO LONG AGO. VS REMAINS STABLE, NEEDS ATTENDED, SAFETY PRECAUTIONS FOR FALL REMAINS ENGAGED, CALL LIGHT IN REACH, WILL ENDORSE TO DAY RN FOR CM.
[2017-04-07 06:54] LABS: ALBUMIN 2.5 g/dL (3.4-5.0); BILIRUBIN,TOTAL 1.2 mg/dL (0.2-1.0); CALCIUM, SERUM 9.4 mg/dL (8.5-10.1); MAGNESIUM 2.5 mg/dL (1.8-2.4); PHOSPHORUS 7.3 mg/dL (2.5-4.9); TOTAL PROTEIN, SERUM 7.7 g/dL (6.4-8.2)
[2017-04-07 06:57] LABS: BASOPHILS % (AUTO) 0.2 % (0.0-2.0); EOSINOPHILS # (AUTO) 0.2 /CMM (0.0-0.7); EOSINOPHILS % (AUTO) 1.8 % (0.0-6.0); LYMPHOCYTES # (AUTO) 1.7 /CMM (0.8-4.8); LYMPHOCYTES % (AUTO) 18.5 % (20.0-44.0); MEAN CORPUSCULAR HEMOGLOBIN 29 PG (26.0-33.0); MEAN CORPUSCULAR HGB CONC 33 g/dl (31.0-36.0); MEAN CORPUSCULAR VOLUME 87 fL (80-96); MONOCYTES # (AUTO) 1.2 /CMM (0.1-1.30); MONOCYTES % (AUTO) 13.2 % (2.0-12.0); NEUTROPHILS % (AUTO) 66.3 % (43.0-81.0); RED BLOOD CELL COUNT(AUTO) 2.22 MIL/uL (4.5-6.0)
[2017-04-07 06:58] LABS: POTASSIUM 7.1 mmol/L (3.5-5.1)
[2017-04-07 06:59] LABS: CREATININE 7.6 mg/dL (0.6-1.3)
[2017-04-07 07:01] LABS: HEMATOCRIT 19 % (39-51); HEMOGLOBIN 6.4 g/dL (13.5-17.5); PLATELET COUNT (AUTO) 41 /CMM (150-450)
--- NOTE | 2017-04-07 07:08 | NUR ---
CRITICAL LAB: RECEIVED CRITICAL LAB REPORT FROM [facility], PT'S H/H IS 6.4/, PLT IS 41 K 7.1, CONTACTED DR FOSTER, AWAITING FOR CALL BACK
--- NOTE | 2017-04-07 07:33 | NUR ---
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
--- NOTE | 2017-04-07 08:00 | NUR ---
RN INITIAL NOTES RECEIVED PT AWAKE, A/O X3 WITH GENERALIZED EDEMA PT ON 3L [place] NC RESPIRATION EVEN AND UNLABORED, STATED HE HAS PAIN AT THIS TIME 3-10, BLE FLOATING , LEFT FEMORAL TLC IN PLACED, PATENT AND FLUSHING WELL, NS AT TKO. SAFETY PRECAUTIONS IN PLACE BED LOCKED INTO THE LOWEST POSITION. CALL LIGHT IN REACH, RN WILL CONTINUE TO MONITOR
[2017-04-07 08:16] LABS: BAND % (MANUAL) 1 % (0.0-5.0); EOSINOPHILS % (MANUAL) 2 % (0-4); LYMPHOCYTES % (MANUAL) 20 % (16-48); MONOCYTES % (MANUAL) 5 % (0-11.0); NEUTROPHILS % (MANUAL) 72 (42-76)
--- NOTE | 2017-04-07 18:35 | NUR ---
RN NOTE PRN DILAUDID AND BENADRYL GIVEN SIMULTANEOUSLY THROUGHOUT THE SHIFT : PT C/O LOWER BACK PAIN AND ITCHING REQUESTED FOR HIS PAIN MEDICATION, PRN DILAUDID 0.5 MG IVP AND BENADRYL THROUGHOUT THE DAY RN CONTINUED TO MONITOR AND REASSESS THROUGHOUT THE SHIFT ALONG WITH Q 2HR TURN , PATIENT DIALYSES TODAY 3.7 L REMOVED VANC TROUGH CAME BACK 19 PHARMACY AWARE AND IS FOLLOWING
--- NOTE | 2017-04-07 20:00 | NUR ---
ms/rn opening notes patient in bed, hob elevated, awake, alert x2, respirations even and unlabored, monitoring for any pain/effectiveness.will continue provide care, call lights within reach, bed in lock position.
--- NOTE | 2017-04-07 22:14 | NUR ---
ms/rn notes patient alert, awake, verbalized pain of 9/10 in the lower back. observed eating hob elevated w/ grimace. will administer pain med and check effectiveness.
--- NOTE | 2017-04-08 02:56 | NUR ---
MS/RN NOTES PATIENT REPORTED PAIN OF 8/10 IN LOWER BACK WILL CHECK EFFECTIVENESS OF PAIN MED GIVEN. HOB ELEVATED, B/P CHECK,
[2017-04-08 04:00] VITALS: BP 105/71
--- NOTE | 2017-04-08 06:27 | NUR ---
ms/rn closing notes patien in bed, awake, alertx2. able to verbalize needs, respirations even and unlabored, ramón warm to touch, cooperative to care, call lights within reach, last pain medication given 3 hours ago will continue monitoring pain management. will endorse to am rn regarding tuyet.
--- NOTE | 2017-04-08 06:56 | NUR ---
ms/rn notes pain verbalized by patient at 9/10 on lower back, alert, oriented x3, awake w/ grimace and guarding . b/p check and on oxygen via nasal canula at 100%, will monitor pain effectiveness.
[2017-04-08 06:57] LABS: ALBUMIN 2.5 g/dL (3.4-5.0); BILIRUBIN,TOTAL 1.1 mg/dL (0.2-1.0); CALCIUM, SERUM 9.4 mg/dL (8.5-10.1); CREATININE 6.5 mg/dL (0.6-1.3); MAGNESIUM 2.3 mg/dL (1.8-2.4); PHOSPHORUS 7.2 mg/dL (2.5-4.9); POTASSIUM 6.1 mmol/L (3.5-5.1)
[2017-04-08 07:11] LABS: HEMATOCRIT 21 % (39-51); HEMOGLOBIN 7.1 g/dL (13.5-17.5); MEAN CORPUSCULAR HEMOGLOBIN 30 PG (26.0-33.0); MEAN CORPUSCULAR HGB CONC 34 g/dl (31.0-36.0); MEAN CORPUSCULAR VOLUME 88 fL (80-96); RDW COEFFICIENT OF VARIATION 16.6 (11.5-15.0); RED BLOOD CELL COUNT(AUTO) 2.39 MIL/uL (4.5-6.0); WHITE BLOOD COUNT (AUTO) 8.9 K/uL (4.3-11.0)
[2017-04-08 07:17] LABS: PLATELET COUNT (AUTO) 41 /CMM (150-450)
--- NOTE | 2017-04-08 07:45 | NUR ---
RN NOTES RECEIVED PT RESTING IN BED, AWAKE, A/O X3, ABLE TO MAKE NEEDS KNOWN. ON O2@3LPM VIA NC, NO SOB NOTED, RESPIRATION EVEN AND UNLABORED, DENIES PAIN AT THIS TIME. S/P PAIN MEDICATION ADMIINISTRATION, DILAUDID 0.5MG AT 0651. BLE OFFLOADING. LEFT FEMORAL TLC IN PLACED, PATENT AND FLUSHING WELL, CDI. SAFETY PRECAUTIONS IN PLACE BED LOCKED. CALL LIGHT IN REACH, ENCOURAGED PT TO USE WHEN ASSISTANCE IS NEEDED. CALL LIGHT WITHIN REACH.
[2017-04-08 08:00] VITALS: BP 109/64
[2017-04-08 08:11] LABS: EOSINOPHILS % (MANUAL) 2 % (0-4); LYMPHOCYTES % (MANUAL) 27 % (16-48); MONOCYTES % (MANUAL) 2 % (0-11.0); NEUTROPHILS % (MANUAL) 69 (42-76)
--- NOTE | 2017-04-08 09:10 | NUR ---
RN NOTES BP MEDS HELD AT THIS TIME, PT WILL HAVE HD TODAY PER HD NURSE RENNY. BP 110/65 HR 78
--- NOTE | 2017-04-08 09:56 | NUR ---
RN NOTES KDUR 40 MEQ HELD, POTASSIUM EVEL 6.1 TODAY. ONGOING HD. VS STABLE AT THIS TIME
--- NOTE | 2017-04-08 11:48 | NUR ---
RN NOTED HD COMPLETED 5L FLUID WAS TAKEN OUT. BP:93/54 HR 71. PT C/O LOWER BACK PAIN PS 8/10
--- NOTE | 2017-04-08 11:50 | NUR ---
RN NOTES DILAUDID 0.5MG IV PRN GIVEN. PT COMPLAINING OF LOWER BACK PAIN
[2017-04-08 16:00] VITALS: BP 97/58
--- NOTE | 2017-04-08 19:50 | NUR ---
RN NOTES PT AWAKE WATCHING TV ON BED. AOX 3 ABLE TO MAKE KNOWN NEEDS. NO ACUTE RESP DISTRESS TOLERATED O2 3LPM VIA NC. SATING 94%. AFEBRILE. C/O PAIN PLAN OF CARE REMINDED FREQ OF PRN MEDICINE. VERBALIZED UNDERSTANDING. IV SITE ON LEFT FEMORAL TLC WITH GOOD BLOOD RETURN AND RIGHT CHEST WALL BLANCA CATH AND JAX AV SHUNT WITH CLEANED DRESSING. NOTED PT WITH EPISTAXIS PER PT HE IS USUALLY HAD THIS EPISODE. S/E BY DR. WILKINS AWARE REGARDING NOSE BLEED EPISODE. KEPT PT CLEAN AND COMFORTABLE IN BED. REMINDED TO USED CALL LIGHT WHEN NEEDED ASSISTANCE. OFFLOADED EXT WITH PILLOWS WILL CONTIN UE TO MONITOR.
--- NOTE | 2017-04-08 19:51 | NUR ---
RN NOTES PT RESTING IN BED COMFORTABLY, NO ACUTE CHANGE IN CONDITION NOTED. ALL DUE MEDS GIVEN, NEEDS ATTENDED AND MET. ENDORSED TO DANIELLE CRENSHAW FOR CONTINUITY OF CARE
[2017-04-08 20:00] VITALS: BP 105/65
[2017-04-09] VITALS (15 sets, daily range): BP systolic 101–125; BP diastolic 53–80
--- NOTE | 2017-04-09 07:15 | NUR ---
RN NOTES PT HAS EPISODE OF 2 XL BOWEL WITH BLOOD. LEFT A MESSAGE TO DR. WILKINS REGARDING EPISODE OF MELENA. PT IS AFEBRILE NO ACUTE RESP DISTRESS. KEPT CLEANED AND DRY. ENDORSED CONTINUITY OF CARE TO AM NURSE.
[2017-04-09 07:28] LABS: BASOPHILS % (AUTO) 0.1 % (0.0-2.0); EOSINOPHILS # (AUTO) 0.1 /CMM (0.0-0.7); EOSINOPHILS % (AUTO) 1.8 % (0.0-6.0); LYMPHOCYTES # (AUTO) 1.9 /CMM (0.8-4.8); LYMPHOCYTES % (AUTO) 22.8 % (20.0-44.0); MEAN CORPUSCULAR HEMOGLOBIN 29 PG (26.0-33.0); MEAN CORPUSCULAR HGB CONC 33 g/dl (31.0-36.0); MEAN CORPUSCULAR VOLUME 88 fL (80-96); MONOCYTES # (AUTO) 1.4 /CMM (0.1-1.30); MONOCYTES % (AUTO) 17.2 % (2.0-12.0); NEUTROPHILS # (AUTO) 4.8 /CMM (1.8-8.9); NEUTROPHILS % (AUTO) 58.1 % (43.0-81.0); WHITE BLOOD COUNT (AUTO) 8.2 K/uL (4.3-11.0)
[2017-04-09 07:37] LABS: RED BLOOD CELL COUNT(AUTO) 1.89 MIL/uL (4.5-6.0)
[2017-04-09 07:55] LABS: HEMATOCRIT 17 % (39-51); HEMOGLOBIN 5.5 g/dL (13.5-17.5); PLATELET COUNT (AUTO) 44 /CMM (150-450)
--- NOTE | 2017-04-09 08:00 | NUR ---
RN NOTES PT AWAKE WATCHING TV ON BED. AOX 3 ABLE TO MAKE KNOWN NEEDS. NO ACUTE RESP DISTRESS TOLERATED O2 3LPM VIA NC. NO SOB NOTED AFEBRILE. C/O PAIN PLAN OF CARE REMINDED FREQ OF PRN MEDICINE. VERBALIZED UNDERSTANDING. IV SITE ON LEFT FEMORAL TLC WITH GOOD BLOOD RETURN AND RIGHT CHEST WALL BLANCA CATH AND JAX AV SHUNT NOTED EPISTAXIS EPISODE. NOSE BLEED EPISODE. KEPT PT CLEAN AND COMFORTABLE IN BED. REMINDED TO USED CALL LIGHT WHEN NEEDED ASSISTANCE. OFFLOADED EXT WITH PILLOWS, WILL CONT TO MONITOR CLOSELY , BED IN LOWEST AND LOCKED POSITION , CALL LIGHT WITHIN REACH , PLAN OF CARE DISCUSSED WITH PATENT
[2017-04-09 08:09] LABS: CALCIUM, SERUM 9.1 mg/dL (8.5-10.1); CREATININE 6.4 mg/dL (0.6-1.3)
[2017-04-09 08:13] LABS: POTASSIUM 6.2 mmol/L (3.5-5.1)
[2017-04-09 08:45] LABS: BAND % (MANUAL) 2 % (0.0-5.0); EOSINOPHILS % (MANUAL) 4 % (0-4); LYMPHOCYTES % (MANUAL) 19 % (16-48); MONOCYTES % (MANUAL) 12 % (0-11.0); NEUTROPHILS % (MANUAL) 63 (42-76)
--- NOTE | 2017-04-09 08:47 | NUR ---
MS RN NOTE NOTED BLOODY STOOL AND SPOKE WITH DR WILKINS NOTIFIED THAT HG 5.5 AND STILL HAS NOSE BLEEDING, NEW ORDER 2 UNITS PRBC TO TRANSFUSE PROTONIX DRIP ,NPO, REPEAT INR, UNIT PLATELETS ENT CONSULT , ORDER CARRIED OUT
--- NOTE | 2017-04-09 09:00 | NUR ---
MS RN NOTE DR WILKINS AWARE THAT PLATELETS [phone]
--- NOTE | 2017-04-09 10:00 | NUR ---
MS RN NOTE HD AT BEDSIDE
--- NOTE | 2017-04-09 10:17 | NUR ---
MS RN NOTE CALLED TO PHARMACY ASKED TO VERIFY PROTONIX ORDER ,SPOKE WITH DENYS
[2017-04-09 10:34] LABS: INR 1.08 (0.87-1.13); PROTHROMBIN TIME 11.6 SECS (9.5-12.7)
--- NOTE | 2017-04-09 11:22 | NUR ---
MS RN NOTE ON HD STARTED BLOOD TRANSFUSION ORDERED I UNIT PRBC
--- NOTE | 2017-04-09 11:53 | NUR ---
MS RN NOTE 2ND UNIT PRBC STARTED ORDERED BY HD NURSE ORDERED
--- NOTE | 2017-04-09 11:53 | NUR ---
MS RN NOTE 1ST INIT COMPETED NO ADVERSE REACTION NOTED
--- NOTE | 2017-04-09 12:13 | NUR ---
MS CRENSHAW NOTE LIZZY COMPETED 4L OF FLUIDS REMOVED BP 106/71 Addendum: 04/09/17 at 1214 by CECILIA HOFFMAN RN ON BELKIS WRIGHT ORDERED
--- NOTE | 2017-04-09 13:33 | NUR ---
MS RN NOTE STOOL FOR OB COLLECTED ORDERED SPOKE WITH DR GREEN NOTIFIED THAT PATENT STILL BLEEDING RECTALLY STATED ITS OK BLOOD TRANSFUSION FOR TODAY WILL RECHECK HG TOMORROW
--- NOTE | 2017-04-09 14:53 | NUR ---
MS RN NOTE CALLED TO BLOOD BANK NO PLATELETS READY YET
--- NOTE | 2017-04-09 17:29 | NUR ---
MS RN NOTE CALLED TO BLOOD BANK , PLATELETS STILL NOT READY
--- NOTE | 2017-04-09 19:00 | NUR ---
MS RN NOTE RECEIVED CALL FROM BLOOD BANK ,PLATELETS READY , ENDORSED TO NEXT SHIFT TO TRANSFUSE
--- NOTE | 2017-04-09 20:15 | NUR ---
PT HAD A BOWEL MOVEMENT, SMALL AMOUNT, DARK COLORED
--- NOTE | 2017-04-09 20:28 | NUR ---
PLATELET INFUSION STARTED, WILL MONITOR PER PROTOCOL
--- NOTE | 2017-04-09 21:29 | NUR ---
PT HAD ANOTHER BOWEL MOVEMENT, DARK COLORED
--- NOTE | 2017-04-09 22:55 | NUR ---
PLATELET INFUSION COMPLETE, NO SIGNS OR SYMPTOMS OF TRANSFUSION REACTION, VITAL SIGNS STABLE, PATIENT IN NO ACUTE DISTRESS
[2017-04-10 07:00] LABS: CALCIUM, SERUM 9.3 mg/dL (8.5-10.1); CREATININE 5.4 mg/dL (0.6-1.3); POTASSIUM 5.2 mmol/L (3.5-5.1)
[2017-04-10 08:00] VITALS: BP 102/65
[2017-04-10 08:07] LABS: BASOPHILS % (AUTO) 0.1 % (0.0-2.0); EOSINOPHILS # (AUTO) 0.2 /CMM (0.0-0.7); EOSINOPHILS % (AUTO) 2.7 % (0.0-6.0); LYMPHOCYTES % (AUTO) 23.7 % (20.0-44.0); MEAN CORPUSCULAR HEMOGLOBIN 29 PG (26.0-33.0); MEAN CORPUSCULAR HGB CONC 33 g/dl (31.0-36.0); MEAN CORPUSCULAR VOLUME 88 fL (80-96); MONOCYTES # (AUTO) 0.9 /CMM (0.1-1.30); MONOCYTES % (AUTO) 10.6 % (2.0-12.0); NEUTROPHILS # (AUTO) 5.4 /CMM (1.8-8.9); NEUTROPHILS % (AUTO) 62.9 % (43.0-81.0); PLATELET COUNT (AUTO) 57 /CMM (150-450); RED BLOOD CELL COUNT(AUTO) 2.18 MIL/uL (4.5-6.0); WHITE BLOOD COUNT (AUTO) 8.6 K/uL (4.3-11.0)
[2017-04-10 08:09] LABS: HEMATOCRIT 19 % (39-51); HEMOGLOBIN 6.4 g/dL (13.5-17.5)
[2017-04-10 08:53] LABS: ABG BASE EXCESS 4.9 mmol/L; ABG PCO2 54.2 mmHg (35.0-45.0); ABG PH 7.371 (7.350-7.450); ABG PO2 49.2 mmHg (75.0-100.0); AaDO2 35.6 mmHg; COHb 3.6 % (0.5-1.5); MetHb 0.6 % (0.0-1.5); O2Hb 81.4 % (94.0-97.0); SITE, ABG Left Brachial; VENT MODE, BG ROOM AIR
[2017-04-10 10:21] LABS: EOSINOPHILS % (MANUAL) 5 % (0-4); LYMPHOCYTES % (MANUAL) 21 % (16-48); MONOCYTES % (MANUAL) 6 % (0-11.0); NEUTROPHILS % (MANUAL) 68 (42-76)
--- NOTE | 2017-04-10 11:30 | NUR ---
RN NOTE PT CAME BACK FROM OR FROM EGD, STABLE, VS STABLE, ASKING FOR FOOD, PT NEEDS TO GO THROUGH A BLEEDING SCAN, REINFORCED THE NECESSITY OF BEING NPO. WILL MONITOR PT, CALL LIGHT WITHIN REACH.
[2017-04-10 16:00] VITALS: BP 120/70
--- NOTE | 2017-04-10 16:45 | NUR ---
RN NOTE PT COULD NOT WAIT ANY LONGER TO EAT, HE ORDERED SUSHI FROM OUTSIDE, AND COULD NOT WAIT FOR THE RESULTS OF BLOOD SCAN TO CONFIRM ABSENCE OF BLEEDING, SO HE STARTED EATING DESPITE ALL THE WARNINGS, RISKS AND BENEFITS EXPLAINED, PT VERBALIZED UNDERSTANDING. CHARGE NURSE IS AWARE. WILL MONITOR PT.
--- NOTE | 2017-04-10 19:30 | NUR ---
RN NOTES PATIENT EN ROUTE TO NM TEST VIA GURNEY. AO X 3, ABLE TO MAKE NEEDS KNOWN. NO ACUTE DISTRESS NOTED. NO SIGNS OF PAIN NOTED. LEFT FEM CATH INTACT. JAX FISTULA INTACT. WILL CONTINUE TO MONITOR WHEN PATIENT RETURNS.
[2017-04-10 20:00] VITALS: BP 117/75
[2017-04-11 04:00] VITALS: BP 106/66
--- NOTE | 2017-04-11 06:07 | NUR ---
RN NOTES PATIENT ASLEEP, EASILY AROUSABLE. RESPIRATIONS EVEN. MONITORED FOR PAIN. DUE MEDS GIVEN WITH NO ASE NOTED. NEEDS ATTENDED. REPOSITIONED Q 2 HOURS. SAFETY PRECAUTIONS AND COMFORT MEASURES IN PLACE. WILL GIVE REPORT TO DAY SHIFT FOR CONTINUITY OF CARE.
[2017-04-11 07:52] LABS: CALCIUM, SERUM 9.6 mg/dL (8.5-10.1); CREATININE 6.1 mg/dL (0.6-1.3); POTASSIUM 5.8 mmol/L (3.5-5.1)
[2017-04-11 08:00] VITALS: BP 125/54
--- NOTE | 2017-04-11 11:00 | NUR ---
RN NOTE PT WAS SLEEPING ALL MORNING, AM MEDS GIVEN LATE, POTASSIUM TAB HELD, POTASSIUM LEVEL 5.8 TODAY, BLOOD PRESSURE MEDS HELD, DUE TO DIALYSIS TODAY PENDING. WILL MONITOR PT.
[2017-04-11 16:00] VITALS: BP 105/57
--- NOTE | 2017-04-11 19:05 | NUR ---
MS RN OPENING NOTES RECEIVED REPORT FROM AM RN. PATIENT A/A/O X1 W/ CONFUSION. BREATHING EVEN AND UNLABORED ON ROOM AIR. NO RESPIRATORY DISTRESS NOTED. PULSES PRESENT. LEFT FEMORAL TRIPLE LUMEN PATENT W/ DRESSING CDI, TKO. RIGHT ARM AV SHUNT W/ DRESSING CDI. SKIN WARM TO TOUCH. SAFETY MEASURES IN PLACE W/ SIDE RAILS UP, BED LOCKED IN LOWEST POSITION. WILL CONTINUE TO MONITOR.
[2017-04-11 20:00] VITALS: BP 124/79
[2017-04-12 04:00] VITALS: BP 118/72
[2017-04-12 06:33] LABS: BASOPHILS % (AUTO) 0.4 % (0.0-2.0); EOSINOPHILS # (AUTO) 0.2 /CMM (0.0-0.7); EOSINOPHILS % (AUTO) 2.6 % (0.0-6.0); LYMPHOCYTES # (AUTO) 2.1 /CMM (0.8-4.8); MEAN CORPUSCULAR HEMOGLOBIN 29 PG (26.0-33.0); MEAN CORPUSCULAR HGB CONC 33 g/dl (31.0-36.0); MEAN CORPUSCULAR VOLUME 88 fL (80-96); MONOCYTES # (AUTO) 1.1 /CMM (0.1-1.30); MONOCYTES % (AUTO) 12.6 % (2.0-12.0); NEUTROPHILS # (AUTO) 5.4 /CMM (1.8-8.9); NEUTROPHILS % (AUTO) 60.4 % (43.0-81.0); RDW COEFFICIENT OF VARIATION 17.2 (11.5-15.0); WHITE BLOOD COUNT (AUTO) 8.9 K/uL (4.3-11.0)
[2017-04-12 06:36] LABS: CALCIUM, SERUM 9.3 mg/dL (8.5-10.1); CREATININE 5.4 mg/dL (0.6-1.3); MAGNESIUM 2.2 mg/dL (1.8-2.4); PHOSPHORUS 6.8 mg/dL (2.5-4.9); POTASSIUM 4.9 mmol/L (3.5-5.1)
[2017-04-12 07:09] LABS: RED BLOOD CELL COUNT(AUTO) 1.95 MIL/uL (4.5-6.0)
[2017-04-12 07:11] LABS: HEMATOCRIT 17 % (39-51); HEMOGLOBIN 5.7 g/dL (13.5-17.5)
[2017-04-12 07:12] LABS: PLATELET COUNT (AUTO) 36 /CMM (150-450)
[2017-04-12 08:00] VITALS: BP 112/66
--- NOTE | 2017-04-12 08:30 | NUR ---
RN NOTES RECEIVED PT FROM AGENCY APPOINTMENTS SUPERVISOR CURRENTLY GETTING DIALYSIS, TOLERATING WELL. A&0X3, ON 2L NASAL CANNULA NO SOB OR DISTRESS NOTED. L FEMORAL TRIPLE LUMEN, AND R UA AV SHUNT DRESSING DRY AND INTACT. SIDE RAILS UPX3, CALL LIGHT WITHIN REACH, BED LOCKED AND IN LOWEST POSITION, WILL CONT TO MONITOR.
--- NOTE | 2017-04-12 08:32 | NUR ---
RN NOTES RED HAT OPEN STACK ADMINISTRATOR RN RECEIVED LAB RESULT HGB OF 5.7. DR FOSTER PAGED, AWAITING CALL BACK.
--- NOTE | 2017-04-12 09:00 | NUR ---
RN NOTES HD COMPLETE 4L OUT PT TOLERATED WELL.
[2017-04-12 09:14] LABS: EOSINOPHILS % (MANUAL) 2 % (0-4); LYMPHOCYTES % (MANUAL) 22 % (16-48); MONOCYTES % (MANUAL) 11 % (0-11.0); NEUTROPHILS % (MANUAL) 65 (42-76)
--- NOTE | 2017-04-12 10:00 | NUR ---
RN NOTES DR BOZENA SIMONS AWARE OF HEMOGLOBIN 5.7 AND PLATELET 36, NO ORDER FOR BLOOD.
[2017-04-12 13:10] VITALS: BP 112/66
--- NOTE | 2017-04-12 16:00 | NUR ---
RN NOTES REPORT GIVEN TO MATT FROM [facility].
--- NOTE | 2017-04-12 16:21 | NUR ---
RN NOTES ATTEMPTED TO REMOVE PT FEMORAL LINE FOR TRANSFER PT REFUSES IT TO BE OUT. EXPLAINED THAT IT IS NO LONGER NEEDED ALL IV MEDS CHANGED TO PO FOR TRANSFER STILL DOES NOT WANT IT OUT. CHARGE NURSE SPOKE WITH PT, STILL REFUSES.
--- NOTE | 2017-04-12 16:25 | NUR ---
RN NOTES PT REFUSED TO SIGN BELONGINGS LIST, STATES HE CAME WITH SHIRT AND SHOES NOT LISTED ON BELONGINGS LIST. SPOKE WITH CHARGE NURSE, STILL WON'T SIGN. BARK TANNER GINA HALE.
--- NOTE | 2017-04-12 16:33 | NUR ---
RN NOTES PT DISCHARGED WITH EMT IN STABLE CONDITION.
== END 2017-04-12 17:24 | DRG 951 ==
LOC: ER 16:09 → ICU 17:43 → MEDSG1 03-26 17:04 → ICU 04-02 15:23 → TELE-TD 04-03 20:22 → TELE1 04-04 08:59 → MEDSG1 04-06 08:36
PROVIDERS: ADMIT Internal Medicine; ATTEND Internal Medicine
PROC: 5A1D60Z (ICD-10-PCS; 2017-03-21)
PROC: 0W9G3ZZ Drainage of Peritoneal Cavity, Percutaneous Approach (ICD-10-PCS; principal; 2017-03-22)
PROC: 5A09357 Assistance with Respiratory Ventilation, Less than 24 Consecutive Hours, Continuous Positive Airway Pressure (ICD-10-PCS; principal; 2017-03-22)
PROC: 2Y41X5Z Packing of Nasal Region using Packing Material (ICD-10-PCS; 2017-03-24)
PROC: 30233N1 Transfusion of Nonautologous Red Blood Cells into Peripheral Vein, Percutaneous Approach (ICD-10-PCS; 2017-03-24)
PROC: 30233R1 Transfusion of Nonautologous Platelets into Peripheral Vein, Percutaneous Approach (ICD-10-PCS; 2017-03-24)
PROC: 0W3Q3ZZ Control Bleeding in Respiratory Tract, Percutaneous Approach (ICD-10-PCS; 2017-03-24)
PROC: 0DB68ZX Excision of Stomach, Via Natural or Artificial Opening Endoscopic, Diagnostic (ICD-10-PCS; 2017-04-10)
DX: K92.2 Gastrointestinal hemorrhage, unspecified (principal); J96.01 Acute respiratory failure with hypoxia; I50.33 Acute on chronic diastolic (congestive) heart failure; D57.00 Hb-SS disease with crisis, unspecified; J15.9 Unspecified bacterial pneumonia; J96.02 Acute respiratory failure with hypercapnia; D68.9 Coagulation defect, unspecified; N18.6 End stage renal disease; E16.2 Hypoglycemia, unspecified; J44.0 Chronic obstructive pulmonary disease with (acute) lower respiratory infection; E87.2 Acidosis; R18.8 Other ascites; D69.6 Thrombocytopenia, unspecified; I13.2 Hypertensive heart and chronic kidney disease with heart failure and with stage 5 chronic kidney disease, or end stage renal disease; G40.909 Epilepsy, unspecified, not intractable, without status epilepticus; G47.33 Obstructive sleep apnea (adult) (pediatric); K21.9 Gastro-esophageal reflux disease without esophagitis; E78.5 Hyperlipidemia, unspecified; E66.2 Morbid (severe) obesity with alveolar hypoventilation; G89.4 Chronic pain syndrome; Z96.649 Presence of unspecified artificial hip joint; Z99.2 Dependence on renal dialysis; Z87.891 Personal history of nicotine dependence; R04.0 Epistaxis; K76.89 Other specified diseases of liver; R16.2 Hepatomegaly with splenomegaly, not elsewhere classified; E83.19 Other disorders of iron metabolism; N28.1 Cyst of kidney, acquired; E87.5 Hyperkalemia; E83.111 Hemochromatosis due to repeated red blood cell transfusions; K29.70 Gastritis, unspecified, without bleeding
CPT/HCPCS: 36415; 36600; 71010-TC; 74178; 74181-TC; 76882; 76942-TC; 80048-TC; 80053-TC; 80076-TC; 80202-TC; 82105; 82140-TC; 82272-TC; 82803-TC; 82962-TC; 83605-TC; 83735-TC; 84100-TC; 84484-TC; 85025-TC; 85027-TC; 85610-TC; 85730-TC; 86301; 86850-TC; 86921-TC; 87081-TC; 88305-TC; 88313-TC; 88342; 90935-TC; 94762-TC; 94799-TC; A4216; A4606; A6253; A6402; A6403; A9560; C9113; J0885; J1170; J1200; J2543; J2597; J2704; J3370; J3490; J7040; J7042; J7050; J7060; P9016-BL; P9034-BL; P9047; Q0163; Q9967; Z7610